=== PATIENT | male | born 1935 | race Caucasian/White ===

== ENCOUNTER 2017-03-03 09:21 | Outpatient (CLI) | payer MEDICARE, OTHER ==
[~2017-03-03] VITALS: Ht 180.3 cm; Wt 106.6 kg
[~2017-03-03 09:21] MED LIST: ASPI81TA85 PO; FLOM5CAP PO; METO50TA7 PO; MULT1TAB28 PO; PRESCAP PO
[2017-03-03] MEDS ORDERED: NS 1,000 ML IV ONE (09:45)
[2017-03-03] MEDS ORDERED: PROPOFOL 200 MG/20 ML VIAL As Ordered ONE (10:32)
[2017-03-03] MEDS ORDERED: LIDOCAINE 2% INJ 100 MG/5 ML SDV (FOR ANES.) As Ordered ONE (10:32)
--- NOTE | 2017-03-03 11:07 | ROOR ---
Patient Name: Nahun Giordano Procedure Date: 03/03/2017 10:28 AM Date of : 1935 Age: 81 Room: [facility] Gender: Male Note Status: Finalized Procedure: Total Colonoscopy to Cecum + Cold Snare Polypectomy + Hemoclips Indications: High risk colon cancer surveillance: Personal history of colonic polyps, Last colonoscopy: 2012 Providers: Vickey Muse MD Referring MD: Connie Joseph NP Requesting Provider: Medicines: Monitored Anesthesia Care Complications: No immediate complications. Procedure: Pre-Anesthesia Assessment: - The heart rate, respiratory rate, oxygen saturations, blood pressure, adequacy of pulmonary ventilation, and response to care were monitored throughout the procedure. The Colonoscope was introduced through the anus and advanced to the cecum, identified by appendiceal orifice and ileocecal valve. The colonoscopy was performed without difficulty. The patient tolerated the procedure well. The quality of the bowel preparation was excellent. Findings: The perianal and digital rectal examinations were normal. Non-bleeding internal hemorrhoids were found during retroflexion. The hemorrhoids were small and Grade I (internal hemorrhoids that do not prolapse). Multiple small and large-mouthed diverticula were found in the recto-sigmoid colon, sigmoid colon and descending colon. Multiple sessile polyps were found in the transverse colon. The polyps were medium in size. These polyps were removed with a cold snare. Resection and retrieval were complete. A medium polyp was found in the ascending colon. The polyp was sessile. The polyp was removed with a cold snare. Resection and retrieval were complete. To prevent bleeding after the polypectomy, two hemostatic clips were successfully placed. A small polyp was found at 50 cm proximal to the anus. The polyp was sessile. The polyp was removed with a cold snare. Resection and retrieval were complete. To prevent bleeding after the polypectomy, one hemostatic clip was successfully placed (MR conditional). There was no bleeding at the end of the procedure. Impression: - Non-bleeding internal hemorrhoids. - Diverticulosis in the recto-sigmoid colon, in the sigmoid colon and in the descending colon. - Multiple medium polyps in the transverse colon, removed with a cold snare. Resected and retrieved. - One medium polyp in the ascending colon, removed with a cold snare. Resected and retrieved. Clips were placed. - One small polyp at 50 cm proximal to the anus, removed with a cold snare. Resected and retrieved. Clip (MR conditional) was placed. - The exam was otherwise normal to the cecum. Recommendation: - Patient has a contact number available for emergencies. The signs and symptoms of potential delayed complications were discussed with the patient. Return to normal activities tomorrow. Written discharge instructions were provided to the patient. - Discharge patient to home. - Continue present medications. - Await pathology results. - Telephone GI clinic for pathology results in 1 week. - Repeat colonoscopy for symptoms only. - Check Portal Online for Path Results.([email or web address]) - Return to referring physician. - The findings and recommendations were discussed with the patient's family. Vickey Muse MD Vickey Muse MD 03/03/2017 11:07:43 AM This report has been signed electronically. Number of Addenda: 0 Note Initiated On: 03/03/2017 10:28 AM Estimated Blood Loss: Estimated blood loss: none.
[2017-03-03 11:15] VITALS: BP 135/78
== END 2017-03-03 11:32 | disposition home or self-care (01) ==
LOC: M OPP 09:21
PROVIDERS: ATTEND Internal Medicine Gastroenterology
DX: Z12.11 Encounter for screening for malignant neoplasm of colon (principal); K64.0 First degree hemorrhoids; K57.30 Diverticulosis of large intestine without perforation or abscess without bleeding; D12.3 Benign neoplasm of transverse colon; D12.2 Benign neoplasm of ascending colon; D12.5 Benign neoplasm of sigmoid colon; I25.10 Atherosclerotic heart disease of native coronary artery without angina pectoris; I10 Essential (primary) hypertension; E78.5 Hyperlipidemia, unspecified; G47.30 Sleep apnea, unspecified; Z98.0 Intestinal bypass and anastomosis status; Z79.899 Other long term (current) drug therapy; Z79.82 Long term (current) use of aspirin; Z95.5 Presence of coronary angioplasty implant and graft

== ENCOUNTER → 2017-06-03 | Outpatient (REF) | payer MEDICARE, OTHER ==
[2017-06-03 15:00] LABS: IMMUNOGLOBULIN G 872 MG/DL (681-1648); IMMUNOGLOBULIN M 64.9 MG/DL (40-230); TOTAL PROTEIN 7.6 GM/DL (6.4-8.2)
[2017-06-07 13:31] LABS: ALBUMIN 4.39 GM/DL (3.29-5.55); ALBUMIN % 57.8 % (55.8-66.1); GAMMA GLOBULIN % 13.3 % (11.1-18.8)
== END ==
LOC: M LAB REF 13:45
PROVIDERS: ATTEND Nurse Practitioner Adult Health
DX: D47.2 Monoclonal gammopathy (principal)

== ENCOUNTER → 2018-02-23 | Outpatient (REF) | payer MEDICARE, OTHER ==
[2018-02-23 14:42] LABS: SLIDE REVIEW Report; SOURCE PERIPHERAL SMEAR
[2018-02-23 14:43] LABS: REASON FOR REVIEW WBC/LEUKEMIA/BLAST
[2018-02-23 15:30] LABS: IMMUNOGLOBULIN G 833 MG/DL (681-1648); IMMUNOGLOBULIN M 57.6 MG/DL (40-230)
[2018-02-25 00:06] LABS: FREE LAMBDA LIGHT CHAINS SERUM 16.7 mg/L (5.7-26.3)
== END ==
LOC: M LAB REF 13:47
DX: D47.2 Monoclonal gammopathy (principal)

== ENCOUNTER → 2018-02-23 | Outpatient (CLI) | payer MEDICARE, OTHER | LOC: M RAD 10:36 | DX: D47.2 Monoclonal gammopathy (principal) | CPT/HCPCS: 77075 ==

== ENCOUNTER → 2019-06-12 | Outpatient (REF) | payer MEDICARE ==
[~2019-06-12] MED LIST changes: +ATOR80TA59 PO; +CHON150C PO; +D31000TA PO; +DIGO0.253 PO; +DILT180C78 PO; +EQLTAB27 PO; +FLOM0.4C39 PO; -FLOM5CAP PO; +METO25TA4 PO; +XARE20TA PO
== END ==
LOC: M LAB REF 12:40
PROVIDERS: ATTEND Nurse Practitioner Adult Health
DX: I48.19 Other persistent atrial fibrillation (principal)

== ENCOUNTER → 2019-11-15 | Outpatient (REF) | payer MEDICARE, OTHER ==
[2019-11-15 16:26] LABS: LIPASE 195 U/L (73-393)
[2019-11-15 17:09] LABS: VITAMIN B12 LEVEL 641 PG/ML (247-911)
== END ==
LOC: M LAB REF 16:09
PROVIDERS: ATTEND Nurse Practitioner Adult Health
DX: R10.84 Generalized abdominal pain (principal); R20.0 Anesthesia of skin

== ENCOUNTER → 2020-01-10 | Outpatient (CLI) | payer MEDICARE, OTHER ==
[~2020-01-10] MED LIST changes: -ASPI81TA85 PO; +ASPI81TA86 PO
--- NOTE | 2020-01-10 10:07 | REP ---
Clinical: Pain. Technique: AP, lateral, swimmers views of the thoracic spine. Findings: Age-related osteopenia and moderate multilevel degenerative changes include osteophytosis, endplate sclerosis, and disc space narrowing. No acute fracture / compression injury or subluxation. Impression: Moderate multilevel degenerative changes. Electronically Signed by Sathya Moody MD 01/10/2020 09:59 A
--- NOTE | 2020-01-10 10:08 | REP ---
Clinical: Pain. Technique: AP, lateral, bilateral oblique and coned-down views of the lumbosacral spine. Findings: Alignment and lordosis maintained. Age-related osteopenia noted. Moderate/advanced multilevel degenerative changes include endplate sclerosis, osteophytosis, disc space narrowing, and facet arthropathy. Findings most pronounced at the L3-4 and L2-3 levels. No acute fracture / compression injury or subluxation. Impression: Moderate/early advanced multilevel degenerative spondylosis. Electronically Signed by Sathya Moody MD 01/10/2020 10:00 A
== END ==
LOC: M WUC 09:16
PROVIDERS: ATTEND Nurse Practitioner Adult Health
DX: M47.896 Other spondylosis, lumbar region (principal); M25.78 Osteophyte, vertebrae

== ENCOUNTER → 2020-04-16 | Outpatient (REF) | payer MEDICARE ==
[2020-04-16 17:03] LABS: LIPASE 164 U/L (73-393)
[2020-04-17 08:50] LABS: H PYLORI QUALITATIVE IgG NEGATIVE (NEGATIVE)
== END ==
LOC: M LAB REF 16:22
PROVIDERS: ATTEND Nurse Practitioner Adult Health
DX: R10.9 Unspecified abdominal pain (principal)

== ENCOUNTER → 2020-05-07 | Outpatient (REF) | payer MEDICARE ==
[~2020-05-07] MED LIST changes: +ASPI81CH33 PO
[2020-05-07 17:42] LABS: ALBUMIN 4.3 GM/DL (3.2-5.2); ALT/SGPT 34 U/L (12-78); BILIRUBIN,TOTAL 0.8 MG/DL (0.2-1.0); BLOOD UREA NITROGEN 17 MG/DL (7-18); CALCIUM LEVEL 9.9 MG/DL (8.8-10.2); CARBON DIOXIDE LEVEL 32 MEQ/L (21-32); CHLORIDE LEVEL 103 MEQ/L (98-107); CREATININE FOR GFR 0.92 MG/DL (0.70-1.30); GLOMERULAR FILTRATION RATE > 60.0 (>35); GLUCOSE, FASTING 97 MG/DL (70-100); POTASSIUM SERUM 4.6 MEQ/L (3.5-5.1); SODIUM LEVEL 138 MEQ/L (136-145); TOTAL PROTEIN 7.3 GM/DL (6.4-8.2)
[2020-05-07 17:55] LABS: BASO % 0.6 % (0.0-1.0); EOS # 0.1 10^3/uL (0.0-0.5); EOS % 1.7 % (0.0-3.0); HEMATOCRIT 44.8 % (42.0-52.0); HEMOGLOBIN 14.4 g/dl (13.5-17.5); LYMPH # 1.2 10^3/uL (1.5-5.0); LYMPH % 22.9 % (24.0-44.0); MEAN CORPUSCULAR HEMOGLOBIN 31.2 pg (27.0-33.0); MEAN CORPUSCULAR HGB CONC 32.1 g/dl (32.0-36.5); MONO # 0.5 10^3/uL (0.0-0.8); NEUTROPHILS # 3.5 10^3/uL (1.5-8.5); NEUTROPHILS % 64.2 % (36.0-66.0); PLATELET COUNT, AUTOMATED 170 10^3/uL (150-450); RED BLOOD COUNT 4.62 10^6/uL (4.30-6.10); WHITE BLOOD COUNT 5.4 10^3/uL (4.0-10.0)
[2020-05-09 16:11] LABS: Lyme Disease IgG/IgM Antibodie <0.91 ISR (0.00-0.90); Lyme Disease IgM Ab Quantitati <0.80 index (0.00-0.79)
== END ==
LOC: M LABDRWAD 16:22
PROVIDERS: ATTEND Physician Assistant
DX: M54.2 Cervicalgia (principal)

== ENCOUNTER → 2020-05-15 | Outpatient (CLI) | payer MEDICARE | LOC: M LABSMTC 13:55 | PROVIDERS: ATTEND Anesthesiology | DX: Z01.812 Encounter for preprocedural laboratory examination (principal); Z20.828 Contact with and (suspected) exposure to other viral communicable diseases ==

== ENCOUNTER 2020-05-20 10:38 | Day surgery (SDC) | payer MEDICARE ==
[~2020-05-20] VITALS: Ht 180.3 cm; Wt 91.6 kg
[~2020-05-20 10:38] MED LIST changes: +NS 1,000 ML IV ONE
[2020-05-20] MEDS ORDERED: LIDOCAINE 2% 100MG/5ML SDV (FOR ANES.) As Ordered ONE ×2 (11:57→12:18)
[2020-05-20] MEDS ORDERED: ePHEDrine SULFATE 25 MG/5 ML(5MG/ML) SYRINGE As Ordered ONE (11:57)
[2020-05-20] MEDS ORDERED: propofoL 200 MG/20 ML VIAL As Ordered ONE (11:57)
--- NOTE | 2020-05-20 12:21 | ROOR ---
Patient Name: Nahun Giordano Procedure Date: 05/20/2020 11:47 AM Date of : 1935 Age: 84 Room: [facility] Gender: Male Note Status: Finalized Procedure: Total Colonoscopy to Cecum + Cold Snare Polypectomy + Hemoclips Indications: High risk colon cancer surveillance: Personal history of colonic polyps, Last colonoscopy: 2016 Providers: Vickey Muse MD Referring MD: Connie Joseph NP Requesting Provider: Medicines: Monitored Anesthesia Care Complications: No immediate complications. Procedure: Pre-Anesthesia Assessment: - The heart rate, respiratory rate, oxygen saturations, blood pressure, adequacy of pulmonary ventilation, and response to care were monitored throughout the procedure. The Colonoscope was introduced through the anus and advanced to the cecum, identified by appendiceal orifice and ileocecal valve. The colonoscopy was performed without difficulty. The patient tolerated the procedure well. The quality of the bowel preparation was excellent. Findings: The perianal and digital rectal examinations were normal. Non-bleeding internal hemorrhoids were found during retroflexion. The hemorrhoids were small and Grade I (internal hemorrhoids that do not prolapse). Multiple small and large-mouthed diverticula were found in the recto-sigmoid colon, sigmoid colon and descending colon. A small polyp was found at 50 cm proximal to the anus. The polyp was sessile. The polyp was removed with a cold biopsy forceps. Resection and retrieval were complete. To prevent bleeding after the polypectomy, one hemostatic clip was successfully placed (MR conditional). There was no bleeding at the end of the procedure. Two sessile polyps were found in the hepatic flexure. The polyps were small in size. These polyps were removed with a cold snare. Resection and retrieval were complete. To prevent bleeding after the polypectomy, two hemostatic clips were successfully placed (MR conditional). There was no bleeding at the end of the procedure. The exam was otherwise without abnormality on direct and retroflexion views. Impression: - Non-bleeding internal hemorrhoids. - Diverticulosis in the recto-sigmoid colon, in the sigmoid colon and in the descending colon. - One small polyp at 50 cm proximal to the anus, removed with a cold biopsy forceps. Resected and retrieved. Clip (MR conditional) was placed. - Two small polyps at the hepatic flexure, removed with a cold snare. Resected and retrieved. Clips (MR conditional) were placed. - The examination was otherwise normal on direct and retroflexion views. - The exam was otherwise normal to the cecum. Recommendation: - Patient has a contact number available for emergencies. The signs and symptoms of potential delayed complications were discussed with the patient. Return to normal activities tomorrow. Written discharge instructions were provided to the patient. - High fiber diet. - Discharge patient to home. - Resume Xarelto (rivaroxaban) at prior dose tomorrow. - Continue present medications. - Await pathology results. - Telephone GI clinic for pathology results in 1 week. - Repeat colonoscopy is not recommended due to current age (66 years or older) for surveillance. - Return to referring physician. - The findings and recommendations were discussed with the patient. Procedure Code(s): --- Professional --- 05708, Colonoscopy, flexible; with removal of tumor(s), polyp(s), or other lesion(s) by snare technique 41158, 59, Colonoscopy, flexible; with biopsy, single or multiple Diagnosis Code(s): --- Professional --- K63.5, Polyp of colon Z86.010, Personal history of colonic polyps K64.0, First degree hemorrhoids K57.30, Diverticulosis of large intestine without perforation or abscess without bleeding CPT copyright 2019 [employer]. All rights reserved. The codes documented in this report are preliminary and upon design verification engineer review may be revised to meet current compliance requirements. Vickey Muse MD Vickey Muse MD 05/20/2020 12:20:55 PM Electronically signed by Vickey Muse MD Number of Addenda: 0 Note Initiated On: 05/20/2020 11:47 AM Estimated Blood Loss: Estimated blood loss: none.
[2020-05-20 12:43] VITALS: BP 187/108
== END 2020-05-20 12:47 | disposition home or self-care (01) ==
LOC: M OPP 10:38
PROVIDERS: ATTEND Internal Medicine Gastroenterology
DX: Z12.11 Encounter for screening for malignant neoplasm of colon (principal); Z86.010 Personal history of colon polyps; D12.6 Benign neoplasm of colon, unspecified; K57.30 Diverticulosis of large intestine without perforation or abscess without bleeding; K64.0 First degree hemorrhoids; I10 Essential (primary) hypertension; E11.9 Type 2 diabetes mellitus without complications; Z79.82 Long term (current) use of aspirin; Z79.84 Long term (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 oral hypoglycemic drugs; Z79.899 Other long term (current) drug therapy

== ENCOUNTER → 2020-12-31 | Outpatient (REF) | payer MEDICARE ==
[~2020-12-31] MED LIST changes: +ACET650T61 PO; +ATOR40TA75 PO; +CIDA500T2 PO; +D 101000 PO; +D31000TA2 PO; +FAMO40TA3 PO; +FURO40TA2 PO; +METF500T13 PO; +METO1TAB7 PO; -NS 1,000 ML IV ONE; +POTA99TA14 PO
[2020-12-31 17:36] LABS: DIGOXIN LEVEL 1.2 NG/ML (0.5-2.0)
[2021-01-02 19:08] LABS: Lyme Disease IgG/IgM Antibodie <0.91 ISR (0.00-0.90); Lyme Disease IgM Ab Quantitati <0.80 index (0.00-0.79)
== END ==
LOC: M LAB REF 16:31
PROVIDERS: ATTEND Nurse Practitioner Adult Health
DX: R63.4 Abnormal weight loss (principal); R10.9 Unspecified abdominal pain; S30.861A Insect bite (nonvenomous) of abdominal wall, initial encounter

== ENCOUNTER 2021-02-13 11:05 | Emergency (ER) | payer MEDICARE ==
[~2021-02-13] VITALS: Ht 180.3 cm; Wt 86.4 kg
[~2021-02-13 11:05] MED LIST changes: -ACET650T61 PO; -ATOR40TA75 PO; -CIDA500T2 PO; -D 101000 PO; -D31000TA2 PO; -FAMO40TA3 PO; -FURO40TA2 PO; -METF500T13 PO; -METO1TAB7 PO; -POTA99TA14 PO
[2021-02-13 11:45] VITALS: BP 136/62
--- NOTE | 2021-02-13 11:54 | REP ---
INDICATION: FALL HEAD INJURY COMPARISON: 03/15/2014 TECHNIQUE: Axial noncontrast images from the skull base to the thoracic inlet with coronal reformations. This CT examination was performed using the following dose reduction techniques: Automated exposure control, adjustment of mA and/or kv according to the patient's size, and use of iterative reconstruction technique. FINDINGS: Atrophy with periventricular leukomalacia and microvascular ischemic changes are appreciated. The ventricles and sulci are symmetric. Ureña-white differentiation is maintained. There is no evidence for acute intracranial hemorrhage, mass/mass effect, pathology or infarction. No extra-axial fluid collection. Calvarium is intact. Paranasal sinuses and mastoid air cells are clear. IMPRESSION: Atrophy and microvascular ischemic changes. No acute intracranial hemorrhage, infarction, or mass/mass effect. <Electronically signed by Sathya Moody > 02/13/21 [id number]
--- NOTE | 2021-02-13 11:57 | REP ---
INDICATION: FALL HEAD INJURY COMPARISON: None. TECHNIQUE: Axial noncontrast images from the skull base to the thoracic inlet with coronal and sagittal re-formations This CT examination was performed using the following dose reduction techniques: Automated exposure control, adjustment of mA and/or kv according to the patient's size, and use of iterative reconstruction technique. FINDINGS: Evaluation is limited by motion artifact. Alignment is relatively well maintained and no obvious acute fracture/compression injury or subluxation is appreciated. Advanced multilevel degenerative changes are noted including partial chronic fusion of the right lateral masses at C5-6. Spinal canal appears patent. Posterior elements and spinous processes without obvious acute injury. Paravertebral soft tissues are grossly normal. IMPRESSION: Advanced multilevel degenerative changes. No obvious acute fracture/compression injury or subluxation. <Electronically signed by Sathya Moody > 02/13/21 [id number]
[2021-02-13] MEDS ORDERED: METF500T13 PO (21:37)
[2021-02-13] MEDS ORDERED: FURO40TA2 PO (21:37)
[2021-02-13] MEDS ORDERED: FAMO40TA3 PO (21:37)
[2021-02-14] MEDS ORDERED: ATOR40TA75 PO (09:15)
[2021-02-14] MEDS ORDERED: XARE20TA PO (09:15)
[2021-02-14] MEDS ORDERED: POTA99TA14 PO (09:15)
[2021-02-14] MEDS ORDERED: D31000TA2 PO (09:15)
[2021-02-14] MEDS ORDERED: METO1TAB7 PO (09:15)
== END 2021-02-13 13:19 | disposition home or self-care (01) ==
LOC: EDBD 11:05 → M ED 11:05
DX: S00.03XA Contusion of scalp, initial encounter (principal); S50.01XA Contusion of right elbow, initial encounter; W01.0XXA Fall on same level from slipping, tripping and stumbling without subsequent striking against object, initial encounter; Y92.71 Barn as the place of occurrence of the external cause; I10 Essential (primary) hypertension; E78.5 Hyperlipidemia, unspecified; I48.91 Unspecified atrial fibrillation; G47.33 Obstructive sleep apnea (adult) (pediatric); Z95.1 Presence of aortocoronary bypass graft; Z79.899 Other long term (current) drug therapy; Z79.82 Long term (current) use of aspirin; Z79.84 Long term (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 oral hypoglycemic drugs; R29.6 Repeated falls; D47.2 Monoclonal gammopathy; R63.4 Abnormal weight loss; R18.8 Other ascites; R07.0 Pain in throat; Z79.01 Long term (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 anticoagulants

== ENCOUNTER 2021-02-13 21:21 | Observation (INO) | payer MEDICARE ==
[~2021-02-13] VITALS: Ht 180.3 cm; Wt 90.5 kg
[2021-02-13] MEDS ORDERED: FAMO40TA3 PO (21:37)
[2021-02-13] MEDS ORDERED: FURO40TA2 PO (21:37)
[2021-02-13] MEDS ORDERED: METF500T13 PO (21:37)
--- NOTE | 2021-02-13 23:44 | REPVR ---
PROCEDURE INFORMATION: Exam: XR Chest Exam date and time: 02/13/2021 11:04 PM Age: 85 years old Clinical indication: Other: Declining health; Additional info: Syncope/near-syncope TECHNIQUE: Imaging protocol: XR of the chest. Views: 1 view. COMPARISON: CT Spine,cervical w/o contrast 02/13/2021 11:33 AM FINDINGS: Tubes, catheters and devices: Sternal wires. Lungs: Unremarkable. No consolidation. Pleural spaces: Unremarkable. No pleural effusion. No pneumothorax. Heart/Mediastinum: Unremarkable. No cardiomegaly. Diaphragm: Elevated left hemidiaphragm. Bones/joints: Unremarkable. IMPRESSION: No acute abnormality. Electronically signed by: Ziggy Qiu On 02/13/2021 23:44:03 PM
[2021-02-14 00:12] LABS: BASO % 0.5 % (0.0-1.0); EOS % 0.2 % (0.0-3.0); HEMOGLOBIN 11.1 g/dl (13.5-17.5); LYMPH # 0.8 10^3/uL (1.5-5.0); LYMPH % 11.4 % (24.0-44.0); MEAN CORPUSCULAR HEMOGLOBIN 31.6 pg (27.0-33.0); MEAN CORPUSCULAR HGB CONC 33.6 g/dl (32.0-36.5); NEUTROPHILS # 4.7 10^3/uL (1.5-8.5); NEUTROPHILS % 71.8 % (36.0-66.0); PLATELET COUNT, AUTOMATED 135 10^3/uL (150-450); RED BLOOD COUNT 3.51 10^6/uL (4.30-6.10); WHITE BLOOD COUNT 6.6 10^3/uL (4.0-10.0)
[2021-02-14 00:16] LABS: HEMOGLOBIN A1c 5.7 %
[2021-02-14 00:22] LABS: INR 2.24; PROTHROMBIN TIME 25.2 SECONDS (12.7-14.5)
[2021-02-14 00:23] LABS: PARTIAL THROMBOPLASTIN TIME 55.6 SECONDS (25.9-37.0)
[2021-02-14 00:33] LABS: BLOOD UREA NITROGEN 15 MG/DL (7-18); CALCIUM LEVEL 8.2 MG/DL (8.8-10.2); CARBON DIOXIDE LEVEL 25 MEQ/L (21-32); CHLORIDE LEVEL 102 MEQ/L (98-107); CPK CREATINE PHOSPHOKINASE 192 U/L (39-308); GLOMERULAR FILTRATION RATE > 60.0 (>35); GLUCOSE, FASTING 122 MG/DL (70-100); POTASSIUM SERUM 4.1 MEQ/L (3.5-5.1); SODIUM LEVEL 135 MEQ/L (136-145)
[2021-02-14 00:34] LABS: ACETONE/KETONE 2.52 MG/DL (<2.81); CK-MB VALUE MASS 1.1 NG/ML (<3.6); ETHYL ALCOHOL (ETHANOL) < 0.003 % (0.000-0.010); FREE T4 1.06 NG/DL (0.76-1.46); MB/CK RELATIVE INDEX 0.57 (< OR =4); TROPONIN I 0.02 NG/ML (< 0.10)
[2021-02-14 00:51] LABS: OSMOLALITY SERUM 271 MOSM/KG (280-301)
[2021-02-14] MEDS ORDERED: NS 1,000 ML IV ONE (01:00)
[2021-02-14 01:29] LABS: DIGOXIN LEVEL 1.2 NG/ML (0.5-2.0)
--- NOTE | 2021-02-14 08:12 | REPVR ---
PROCEDURE INFORMATION: Exam: CT Head Without Contrast Exam date and time: 02/14/2021 7:41 AM Age: 85 years old Clinical indication: Injury or trauma; Fall; Blunt trauma (contusions or hematomas) TECHNIQUE: Imaging protocol: Computed tomography of the head without contrast. Radiation optimization: All CT scans at this facility use at least one of these dose optimization techniques: automated exposure control; mA and/or kV adjustment per patient size (includes targeted exams where dose is matched to clinical indication); or iterative reconstruction. COMPARISON: CT Head without contrast 02/13/2021 11:33 AM FINDINGS: Brain: There is no acute intracranial hemorrhage or mass effect. Moderate diffuse volume loss is within the range of normal for patient age. There are small vessel ischemic changes within the periventricular and subcortical white matter, but the normal castillo-white matter delineation is maintained. Cerebral ventricles: Prominence of the ventricular system is commensurate with volume loss. Paranasal sinuses: Visualized sinuses are unremarkable. No fluid levels. Mastoid air cells: Visualized mastoid air cells are well aerated. Bones/joints: Unremarkable. No acute fracture. Soft tissues: Unremarkable. IMPRESSION: No acute hemorrhage or calvarial fracture. Electronically signed by: Harriet Enriquez On 02/14/2021 08:12:36 AM
[2021-02-14] MEDS ORDERED: METO1TAB7 PO (09:15)
[2021-02-14] MEDS ORDERED: POTA99TA14 PO (09:15)
[2021-02-14] MEDS ORDERED: ATOR40TA75 PO (09:15)
[2021-02-14] MEDS ORDERED: HOME MED LIST COMPLETE! XX SCH (09:15)
[2021-02-14] MEDS ORDERED: D31000TA2 PO (09:15)
[2021-02-14] MEDS ORDERED: XARE20TA PO (09:15)
[2021-02-14 09:21] LABS: RSV AMPLIFICATION NEGATIVE (NEGATIVE)
[2021-02-14] MEDS ORDERED: ACETAMINOPHEN TAB 650MG DOSE (2X325MG) PO PRN (09:55)
--- NOTE | 2021-02-14 10:28 | HPEPDOC ---
General Date of Admission Feb 13, 2021 at 21:22 Date of Service: Feb 14, 2021 Chief Complaint The patient is a 85-year-old male admitted with a reason for visit of Fall,Orthostasis. Source: Patient, Family History of Present Illness Patient is 85 years old male with past medical history of atrial fibrillation, hyperlipidemia, MGUS presented to hospital with history of mechanical fall. Patient is extremely poor historian. According to his family he developed mechanical fall yesterday after syncope. He worked in his garden for a few days and did not drink enough fluid. According to family patient lost around 40 pounds for past year due to esophageal pain after eating the food. In ER orthostatic vital signs was positive, no leukocytosis, HbA1c 5.7. CT head unrem arkable, CT chest no any acute pulmonary infiltrates. Home Medications Scheduled Aspirin (Aspirin) 81 Mg Tab.chew, 81 MG PO DAILY, (Reported) Atorvastatin Calcium (Atorvastatin Calcium) 40 Mg Tablet, 40 MG PO QHS, (Reported) Cholecalciferol (Vitamin D3) (Vitamin D3) 1,000 Unit Tablet, 1,000 UNITS PO BID, (Reported) Digoxin (Digoxin) 250 Mcg Tablet, 250 MCG PO DAILY, (Reported) Diltiazem Hcl (Diltiazem 24Hr ER) 180 Mg Cap.er.24h, 180 MG PO DAILY, (Reported) Famotidine (Famotidine) 40 Mg Tablet, 40 MG PO DAILY, (Reported) Furosemide (Furosemide) 40 Mg Tablet, 20 MG PO DAILY, (Reported) Metformin HCl (Metformin HCl) 500 Mg Tablet, 500 MG PO QPM, (Reported) Metoprolol Succinate (Metoprolol Succinate) 50 Mg Tab.er.24h, 50 MG PO DAILY, (Reported) Multivitamin with Minerals (Men's One Daily) 1 Each Tablet, 1 TAB PO DAILY, (Reported) Potassium Gluconate (Potassium) 99 Mg Tablet, 595 MG PO BID, (Reported) Rivaroxaban (Xarelto) 20 Mg Tablet, 20 MG PO DAILY, (Reported) Vit A/Vit C/Vit E/Zinc/Copper (Preservision Areds Softgel) 1 Cap Cap, 1 CAP PO BID, (Reported) Allergies Coded Allergies: No Known Allergies (Verified , 03/26/17) Past Medical History Medical History atrial fibrillation, hyperlipidemia, MGUS Family History I personally reviewed family history and found not pertinent Social History * Smoker: Denies Alcohol: Denies Drugs: denies A-FIB/CHADSVASC A-FIB History Current/History of A-Fib/PAF?: Yes Current PO Anticoag Therapy: Yes Review of Systems Constitutional: Denies: Chills, Fever Eyes: Denies: Pain ENT: Denies: Head Aches Skin: Denies: Rash Pulmonary: Denies: Dyspnea Cardiovascular: Denies: Chest Pain Gastrointestinal: Denies: Nausea, Vomiting Genitourinary: Denies: Dysuria Hematologic: Denies: Bruising Endocrine: Denies: Polydipsia Musculoskeletal: Denies: Neck Pain Neurological: Denies: Weakness Psych: Reports: Mood Normal Physical Examination General Exam: Positive: Alert, Cooperative Eye Exam: Positive: PERRLA, Other Eye Symptoms (Right-sided facial bruises) ENT Exam: Positive: Mucous membr. moist/pink Neck Exam: Positive: Supple; Negative: JVD Chest Exam: Positive: Clear to auscultation Heart Exam: Positive: Rate Normal, Irregular Rhythm Telemetry: Positive: Atrial fibrillation Abdomen Exam: Positive: Normal bowel sounds Extremity Exam: Negative: Clubbing Skin Exam: Positive: Nl turgor and temperature Neuro Exam: Positive: Strength at 5/5 X4 ext Psych Exam: Positive: Mental status NL Vital Signs Vital Signs Date Time Temp Pulse Resp B/P (MAP) Pulse Ox O2 Delivery O2 Flow Rate FiO2 02/14/21 07:48 76 17 112/53 (72) 95 Room Air 02/13/21 21:24 98.6 Laboratory Data Labs 24H Laboratory Tests 2 02/13/21 23:33: Immature Granulocyte % (Auto) 1.1, Neutrophils (%) (Auto) 71.8H, Lymphocytes (%) (Auto) 11.4L, Monocytes (%) (Auto) 15.0H, Eosinophils (%) (Auto) 0.2, Basophils (%) (Auto) 0.5, Neutrophils # (Auto) 4.7, Lymphocytes # (Auto) 0.8L, Monocytes # (Auto) 1.0H, Eosinophils # (Auto) 0.0, Basophils # (Auto) 0.0, Nucleated Red Blood Cells % (auto) 0.0, Prothrombin Time 25.2H, Prothromb Time International Ratio 2.24, Activated Partial Thromboplast Time 55.6H, Urine Color YELLOW, Urine Appearance HAZY, Urine pH 5.0, Urine Specific Trezevant 1.017, Urine Protein NEGATIVE, Urine Glucose (UA) NEGATIVE, Urine Ketones TRACEH, Urine Blood NEGATIVE, Urine Nitrite NEGATIVE, Urine Bilirubin NEGATIVE, Urine Urobilinogen 4.0H, Urine Leukocyte Esterase NEGATIVE, Urine WBC (Auto) 1, Urine RBC (Auto) 1, Urine Hyaline Casts (Auto) 0, Urine Bacteria (Auto) NEGATIVE, Urine Squamous Ep ithelial Cells 0, Urine Mucus (Auto) MODERATE, Urine Sperm (Auto) , Anion Gap 8, Glomerular Filtration Rate > 60.0, Estimated Mean Plasma Glucose 117H, Hemoglobin A1c 5.7, Osmolality 271L, Lactic Acid Level 1.2, Calcium Level 8.2L, Total Creatine Kinase 192, Creatine Kinase MB 1.1, Creatine Kinase MB Relative Index 0.57, Troponin I 0.02, Thyroid Stimulating Hormone (TSH) 2.530, Free Thyroxine 1.06, Digoxin Level 1.2, Ethyl Alcohol Level < 0.003, B- Hydroxybutyrate 2.52 02/13/21 23:44: Bedside Glucose (Misc Panel) 123H 02/14/21 08:10: Coronavirus (COVID-19)(PCR) NEGATIVE, Influenza Type A (RT-PCR) NEGATIVE, Influenza Type B (RT-PCR) NEGATIVE, Respiratory Syncytial Virus (PCR) NEGATIVE CBC/BMP Laboratory Tests 02/13/21 23:33 Assessment/Plan Patient is 85 years old male with past medical history of atrial fibrillation, hyperlipidemia, MGUS presented to hospital with history of mechanical fall. Patient is extremely poor historian. According to his family he developed mechanical fall yesterday after syncope. He worked in his garden for a few days and did not drink enough fluid. According to family patient lost around 40 pounds for past year due to esophageal pain after eating the food. In ER orthostatic vital signs was positive, no leukocytosis, HbA1c 5.7. CT head unremarkable, CT chest no any acute pulmonary infiltrates. Problems (1) Orthostasis Status: Acute Problem Text: Most likely secondary to dehydration and medication side effect patient was on the beta-blockers and diltiazem I stopped diltiazem, continue metoprolol Heart rate under control IV fluid (2) Fall Status: Acute Problem Text: Multifactorial most likely secondary to dehydration and medication side effect (3) IgG monoclonal gammopathy Status: Chronic Problem Text: Follow-up with oncologist in the outpatient settings (4) Syncope and collapse Status: Acute Problem Text: See above Telemetry (5) A-fib Status: Chronic Problem Text: Continue oral target anticoagulation Heart rate under control I stop diltiazem and continue metoprolol (6) Weight loss Status: Chronic Problem Text: According to family patient lost 40 pounds due to esophageal discomfort Patient will need follow-up with GI team in the outpatient settings We will proceed with CT chest/abdomen/pelvis to rule out malignancy Plan / VTE VTE Prophylaxis Ordered?: Yes STEVEN VÁZQUEZ DO Feb 14, 2021 10:28
[2021-02-14] MEDS: RIVAROXABAN 20 MG TAB (XARELTO) PO SCH (10:46)
[2021-02-14] MEDS: ASPIRIN 81 MG CHEW TABLET PO SCH (10:46)
[2021-02-14] MEDS: FAMOTIDINE 20 MG TAB PO SCH (10:46)
[2021-02-14] MEDS: VITAMIN D 1,000 INTERNATIONAL UNITS TABLET PO SCH ×2 (10:46→20:21)
[2021-02-14] MEDS: DIGOXIN 0.25 MG TAB PO SCH (10:47)
[2021-02-14] MEDS: FUROSEMIDE 20 MG TAB PO SCH (10:47)
[2021-02-14] MEDS: METOPROLOL SUCC (TopROL XL) 50MG **XL** TAB PO SCH (10:49)
[2021-02-14] MEDS: NS 1,000 ML IV SCH ×2 (10:50→22:44)
--- NOTE | 2021-02-14 11:11 | REP ---
INDICATION: possible malignancy COMPARISON: Abdominopelvic CT dated 04/24/2020 TECHNIQUE: Axial noncontrast images from the thoracic inlet to the upper abdomen with coronal and sagittal reformations. This CT examination was performed using the following dose reduction techniques: Automated exposure control, adjustment of mA and/or kv according to the patient's size, and use of iterative reconstruction technique. FINDINGS: Relatively mild bibasilar atelectasis and small pleural reactions (left greater than right). Lung valdez are otherwise well aerated and essentially clear. 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 Atherosclerotic changes to the thoracic aorta and coronary arteries noted. Cardiomegaly identified without pericardial effusion. Evidence for prior aortic valve repair noted. No obvious significant adenopathy. Musculoskeletal structures without acute osseous abnormality. Limited upper abdomen demonstrates moderate to significant left upper quadrant ascites surrounding the spleen as well as gastric wall thickening and small amount of perihepatic ascites. IMPRESSION: 1. Mild bibasilar atelectasis and small pleural reactions. 2. Findings may be secondary to and reactive to upper abdominal findings including significant left upper quadrant perisplenic ascites and gastric wall thickening. Further investigation may be warranted. <Electronically signed by Sathya Moody > 02/14/21 [id number]
--- NOTE | 2021-02-14 11:31 | REP ---
INDICATION: possible malignancy COMPARISON: 04/24/2020 TECHNIQUE: Axial noncontrast images from the lung bases to the pubic symphysis with coronal and sagittal reformations. This CT examination was performed using the following dose reduction techniques: Automated exposure control, adjustment of mA and/or kv according to the patient's size, and use of iterative reconstruction technique. FINDINGS: There is a moderate amount of ascites primarily noted in the left upper quadrant and surrounding a poorly definable spleen and essentially inseparable from the gastric fundus which demonstrates a moderate amount of gastric wall thickening as well as a small amount of perihepatic ascites and generalized fat stranding through the mesentery. These findings are nonspecific and evaluation is significantly limited by the lack of both oral and intravenous contrast enhancement. Pancreas, bilateral adrenal glands, and kidneys are relatively stable including chronic perinephric stranding and renal hypodensities suggesting simple and complex cysts. The enteric system is without obstruction and there is no free air to suggest perforation. Scattered colonic diverticula noted along with chronic rim enhancing ovoid fat structures in the left hemipelvis suggesting chronic epiploic appendagitis and sequelae of possible old fatty infarctions. Pelvis demonstrates normal bladder and age-appropriate prostate/seminal vesicles. No obvious adenopathy. Atherosclerotic changes to the aorta and vasculature noted without aneurysm. Musculoskeletal structures are intact and without acute osseous abnormality. IMPRESSION: 1. Moderate amount of ascites primarily surrounding the spleen in the left upper quadrant along with scattered mesenteric fat stranding and findings as described above. Findings require further investigation and evaluation is currently limited by the lack of contrast enhancement. Differential diagnosis may include splenic infarction, primary splenic pathology as well as adjacent gastric pathology and sequelae of hepatocellular disease. 2. Chronic appearing changes to the kidneys including hypodensities may warrant ultrasound evaluation for confirmation. 3. Chronic appearing changes to the large bowel. <Electronically signed by Sathya Moody > 02/14/21 1122
[2021-02-14 12:00] VITALS: BP_SYST 129; BP_SYST 131; BP_SYST 135; BP_DIAS 56; BP_DIAS 57; BP_DIAS 58
[2021-02-14 14:00] VITALS: BP 114/60
[2021-02-14] MEDS ORDERED: GLUCAGON INJ 1MG VIAL SC PRN (14:30)
[2021-02-14] MEDS ORDERED: GLUCOSE 4GM CHEW TABLET PO PRN (14:30)
[2021-02-14] MEDS ORDERED: DEXTROSE 50% 50 ML SYRINGE IV PRN (14:30)
[2021-02-14] MEDS: GASTROGRAFIN SOLUTION 30ML PO SCH ×2 (16:34→16:35)
[2021-02-14] MEDS ORDERED: ISOVUE-370 76% 100ML VIAL As Ordered ONE (16:43)
[2021-02-14] MEDS: HumaLOG INSULIN (NovoLOG) PER UNIT SC SCH (17:30)
[2021-02-14] MEDS ORDERED: ATORVASTATIN 20 MG TAB PO SCH (21:00)
[2021-02-14] MEDS ORDERED: HumaLOG INSULIN (NovoLOG) PER UNIT SC SCH (21:00)
--- NOTE | 2021-02-14 21:19 | ECGEPIP ---
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
--- NOTE | 2021-02-14 21:43 | REP ---
INDICATION: splenic infarct, gastric malignancy. COMPARISON: None TECHNIQUE: Axial contrast-enhanced images from the lung bases to the pubic symphysis using oral and 100 cc Isovue 370 intravenous contrast material. Coronal and sagittal reformations obtained. This CT examination was performed using the following dose reduction techniques: Automated exposure control, adjustment of mA and/or kv according to the patient's size, and the use of iterative reconstruction technique. FINDINGS: Moderate amount of ascites is again appreciated but has shifted in location now primarily noted in a right upper quadrant/perihepatic distribution. The spleen appears moderately enlarged but otherwise homogeneous in parenchymal enhancement without evidence for infarction or obvious focal abnormality. The liver demonstrates heterogeneous echotexture but without definable mass lesion appreciated. Kidneys demonstrate stable chronic perinephric stranding along with 3.5 cm left upper pole renal cyst. Pancreas is grossly unremarkable. Bilateral adrenal glands appear normal. Evidence for prior cholecystectomy noted. The enteric system is without obstruction or definite acute inflammatory process. Area of mucosal thickening of the mid sigmoid colon is nonspecific. Scattered colonic diverticula are also identified without evidence for acute diverticulitis. 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 Small bowel is unremarkable. Stomach is under distended but gastric mucosal thickening at the fundus cannot be excluded and may warrant endoscopy evaluation. Pelvis demonstrates normal bladder and age-appropriate prostate/seminal vesicles. No free air. No obvious intraperitoneal or retroperitoneal adenopathy. Atherosclerotic changes to the aorta and vasculature noted without aneurysm or dissection. Musculoskeletal structures demonstrate degenerative changes without acute osseous abnormality. [place] identified in the right groin suggest prior herniorrhaphy. IMPRESSION: 1. Moderate amount of ascites has shifted to a predominantly right upper quadrant distribution on current examination. 2. Spleen is mildly enlarged but without evidence for infarction or focal abnormality. 3. Diffuse in predominately chronic changes as noted above. An acute primary focus of pathology cannot definitively be excluded. 4. Gastric thickening to the fundus cannot be excluded and may warrant endoscopy. 5. Further nonacute findings as described above. <Electronically signed by Sathya Moody > 02/14/21 [id number]
[2021-02-14 22:00] VITALS: BP_SYST 131; BP_SYST 143; BP_DIAS 70; BP_DIAS 72
[2021-02-15 06:52] LABS: HEMATOCRIT 28.3 % (42.0-52.0); HEMOGLOBIN 9.6 g/dl (13.5-17.5); MEAN CORPUSCULAR HEMOGLOBIN 31.6 pg (27.0-33.0); MEAN CORPUSCULAR HGB CONC 33.9 g/dl (32.0-36.5); MEAN CORPUSCULAR VOLUME 93.1 fl (80.0-96.0); PLATELET COUNT, AUTOMATED 118 10^3/uL (150-450); RED BLOOD COUNT 3.04 10^6/uL (4.30-6.10); WHITE BLOOD COUNT 4.7 10^3/uL (4.0-10.0)
[2021-02-15 07:01] VITALS: BP_SYST 148; BP_SYST 161; BP_DIAS 72; BP_DIAS 80
[2021-02-15 07:21] LABS: ALT/SGPT 17 U/L (12-78); BILIRUBIN,TOTAL 1.1 MG/DL (0.2-1.0); BLOOD UREA NITROGEN 10 MG/DL (7-18); CALCIUM LEVEL 8.6 MG/DL (8.8-10.2); CARBON DIOXIDE LEVEL 26 MEQ/L (21-32); CHLORIDE LEVEL 108 MEQ/L (98-107); CREATININE FOR GFR 0.64 MG/DL (0.70-1.30); GLOMERULAR FILTRATION RATE > 60.0 (>35); GLUCOSE, FASTING 104 MG/DL (70-100); MAGNESIUM LEVEL 2.1 MG/DL (1.8-2.4); SODIUM LEVEL 139 MEQ/L (136-145); TOTAL PROTEIN 5.8 GM/DL (6.4-8.2)
[2021-02-15] MEDS: HumaLOG INSULIN (NovoLOG) PER UNIT SC SCH ×2 (07:30→12:00)
[2021-02-15] MEDS ORDERED: ENOXAPARIN 40MG/0.4ML SYRINGE (J1650 PER 10MG) SC SCH (09:00)
[2021-02-15] MEDS: FUROSEMIDE 20 MG TAB PO SCH (09:20)
[2021-02-15] MEDS: VITAMIN D 1,000 INTERNATIONAL UNITS TABLET PO SCH (09:20)
[2021-02-15] MEDS: ASPIRIN 81 MG CHEW TABLET PO SCH (09:20)
[2021-02-15] MEDS: FAMOTIDINE 20 MG TAB PO SCH (09:20)
[2021-02-15] MEDS: RIVAROXABAN 20 MG TAB (XARELTO) PO SCH (09:20)
[2021-02-15 09:21] VITALS: BP 128/66
[2021-02-15] MEDS: DIGOXIN 0.25 MG TAB PO SCH (09:21)
[2021-02-15] MEDS: METOPROLOL SUCC (TopROL XL) 50MG **XL** TAB PO SCH (09:21)
[2021-02-15] MEDS: NS 1,000 ML IV SCH ×2 (09:25→12:24)
[2021-02-15 14:00] VITALS: BP 125/66
--- NOTE | 2021-02-15 14:52 | DS.PDOC ---
Discharge Summary General Date of Admission Feb 13, 2021 at 21:22 Date of Discharge 02/15/21 Discharge Summary PROCEDURES PERFORMED DURING STAY: [None]. ADMITTING DIAGNOSES: Orthostatic hypotension Fall IgG monoclonal gammopathy Syncope and collapse A-fib Weight loss Ascites DISCHARGE DIAGNOSES: Orthostatic hypotension Fall IgG monoclonal gammopathy Syncope and collapse A-fib Weight loss Ascites COMPLICATIONS/CHIEF COMPLAINT: Fall,Orthostasis. HISTORY OF PRESENT ILLNESS: Patient is 85 years old male with past medical history of atrial fibrillation, hyperlipidemia, MGUS presented to hospital with history of mechanical fall. Patient is extremely poor historian. According to his family he developed mechanical fall yesterday after syncope. He worked in his garden for a few days and did not drink enough fluid. According to family patient lost around 40 pounds for past year due to esophageal pain after eating the food. In ER orthostatic vital signs was positive, no leukocytosis, HbA1c 5.7. CT head unremarkable, CT chest no any acute pulmonary infiltrates. HOSPITAL COURSE: During the hospital stay the following issue addressed (1) Orthostasis Most likely secondary to dehydration and medication side effect patient was on the beta-blockers and diltiazem I stopped diltiazem, continue metoprolol Heart rate under control Patient received IV fluid (2) Fall Multifactorial most likely secondary to dehydration and medication side effect (3) IgG monoclonal gammopathy Follow-up with oncologist in the outpatient settings (4) Syncope and collapse See above Telemetry (5) A-fib Continue oral target anticoagulation Heart rate under control I stop diltiazem and continue metoprolol (6) Weight loss According to family patient lost 40 pounds due to esophageal discomfort Patient will need follow-up with GI team in the outpatient settings Ascites Moderate ascites was found on CT abdomen pelvis. Patient will need diagnostic paracentesis in the outpatient settings. No interventional radiologist coverage today. Patient afebrile, does not have leukocytosis, looks nontoxic. CT abdomen pelvis negative for cirrhosis. See result below DISCHARGE MEDICATIONS: Please see below. ALLERGIES: Please see below. PHYSICAL EXAMINATION ON DISCHARGE: VITAL SIGNS: Please see below. General Exam: Positive: Alert, Cooperative Eye Exam: Positive: PERRLA, Other Eye Symptoms (Right-sided facial bruises) ENT Exam: Positive: Mucous membr. moist/pink Neck Exam: Positive: Supple; Negative: JVD Chest Exam: Positive: Clear to auscultation Heart Exam: Positive: Rate Normal, Irregular Rhythm Telemetry: Positive: Atrial fibrillation Abdomen Exam: Positive: Normal bowel sounds Extremity Exam: Negative: Clubbing Skin Exam: Positive: Nl turgor and temperature Neuro Exam: Positive: Strength at 5/5 X4 ext Psych Exam: Positive: Mental status NL LABORATORY DATA: Please see below. IMAGING: INDICATION: splenic infarct, gastric malignancy. COMPARISON: None TECHNIQUE: Axial contrast-enhanced images from the lung bases to the pubic symphysis using oral and 100 cc Isovue 370 intravenous contrast material. Coronal and sagittal reformations obtained. This CT examination was performed using the following dose reduction techniques: Automated exposure control, adjustment of mA and/or kv according to the patient's size, and the use of iterative reconstruction technique. FINDINGS: Moderate amount of ascites is again appreciated but has shifted in location now primarily noted in a right upper quadrant/perihepatic distribution. The spleen appears moderately enlarged but otherwise homogeneous in parenchymal enhancement without evidence for infarction or obvious focal abnormality. The liver demonstrates heterogeneous echotexture but without definable mass lesion appreciated. Kidneys demonstrate stable chronic perinephric stranding along with 3.5 cm left upper pole renal cyst. Pancreas is grossly unremarkable. Bilateral adrenal glands appear normal. Evidence for prior cholecystectomy noted. The enteric system is without obstruction or definite acute inflammatory process. Area of mucosal thickening of the mid sigmoid colon is nonspecific. Scattered colonic diverticula are also identified without evidence for acute diverticulitis. 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 Small bowel is unremarkable. Stomach is under distended but gastric mucosal thickening at the fundus cannot be excluded and may warrant endoscopy evaluation. Pelvis demonstrates normal bladder and age-appropriate prostate/seminal vesicles. No free air. No obvious intraperitoneal or retroperitoneal adenopathy. Atherosclerotic changes to the aorta and vasculature noted without aneurysm or dissection. Musculoskeletal structures demonstrate degenerative changes without acute osseous abnormality. [place] identified in the right groin suggest prior herniorrhaphy. IMPRESSION: 1. Moderate amount of ascites has shifted to a predominantly right upper quadrant distribution on current examination. 2. Spleen is mildly enlarged but without evidence for infarction or focal abnormality. 3. Diffuse in predominately chronic changes as noted above. An acute primary focus of pathology cannot definitively be excluded. 4. Gastric thickening to the fundus cannot be excluded and may warrant endoscopy. 5. Further nonacute findings as described above. PROGNOSIS: Fair ACTIVITY: [As tolerated]. DIET: Renal DISPOSITION: Home with home health ITEMS TO FOLLOWUP ON ON OUTPATIENT: Follow-up with PCP, GI team, oncologist DISCHARGE CONDITION: [Stable]. TIME SPENT ON DISCHARGE: 40 minutes. Vital Signs/I&Os Vital Signs Date Time Temp Pulse Resp B/P (MAP) Pulse Ox O2 Delivery O2 Flow Rate FiO2 02/15/21 09:21 80 128/66 02/15/21 06:00 98.0 18 93 Room Air I&O- Last 24 Hours up to 6 AM 02/15/21 06:00 Intake Total 2000 ml Output Total 1275 ml Balance 725 ml Laboratory Data Labs 24H Laboratory Tests 2 02/14/21 17:21: Bedside Glucose (Misc Panel) 104 02/14/21 20:17: Bedside Glucose (Misc Panel) 139H 02/15/21 06:33: Nucleated Red Blood Cells % (auto) 0.0, Anion Gap 5L, Glomerular Filtration Rate > 60.0, Calcium Level 8.6L, Magnesium Level 2.1, Total Bilirubin 1.1H, Aspartate Amino Transf (AST/SGOT) 26, Alanine Aminotransferase (ALT/SGPT) 17, Alkaline Phosphatase 72, Total Protein 5.8L, Albumin 3.0L, Albumin/Globulin Ratio 1.1 02/15/21 11:26: Bedside Glucose (Misc Panel) 107 CBC/BMP Laboratory Tests 02/15/21 06:33 FSBS Laboratory Tests Test 02/14/21 17:21 02/14/21 20:17 02/15/21 11:26 Range/Units Bedside Glucose (Misc Panel) 104 139 107 83-110 MG/DL Discharge Medications Scheduled Aspirin (Aspirin) 81 Mg Tab.chew, 81 MG PO DAILY, (Reported) Atorvastatin Calcium (Atorvastatin Calcium) 40 Mg Tablet, 40 MG PO QHS, (Reported) Cholecalciferol (Vitamin D3) (Vitamin D3) 1,000 Unit Tablet, 1,000 UNITS PO BID, (Reported) Digoxin (Digoxin) 250 Mcg Tablet, 250 MCG PO DAILY, (Reported) Famotidine (Famotidine) 40 Mg Tablet, 40 MG PO DAILY, (Reported) Metformin HCl (Metformin HCl) 500 Mg Tablet, 500 MG PO QPM, (Reported) Metoprolol Succinate (Metoprolol Succinate) 50 Mg Tab.er.24h, 50 MG PO DAILY, (Reported) Multivitamin with Minerals (Men's One Daily) 1 Each Tablet, 1 TAB PO DAILY, (Reported) Potassium Gluconate (Potassium) 99 Mg Tablet, 595 MG PO BID, (Reported) Rivaroxaban (Xarelto) 20 Mg Tablet, 20 MG PO DAILY, (Reported) Vit A/Vit C/Vit E/Zinc/Copper (Preservision Areds Softgel) 1 Cap Cap, 1 CAP PO BID, (Reported) Allergies Coded Allergies: No Known Allergies (Verified , 03/26/17) STEVEN VÁZQUEZ DO Feb 15, 2021 14:52
== END 2021-02-15 14:54 | disposition home health service (06) ==
LOC: M ED 21:21 → M ED INP 21:22 → ENRESERV 02-14 10:11 → M MSPAV 02-14 11:29
PROVIDERS: ADMIT Internal Medicine; ATTEND Internal Medicine
DX: I95.1 Orthostatic hypotension (principal); R29.6 Repeated falls; D47.2 Monoclonal gammopathy; I48.91 Unspecified atrial fibrillation; R63.4 Abnormal weight loss; R18.8 Other ascites; E78.5 Hyperlipidemia, unspecified; R07.0 Pain in throat; Z79.899 Other long term (current) drug therapy; Z79.82 Long term (current) use of aspirin; Z79.84 Long term (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 oral hypoglycemic drugs; Z79.01 Long term (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 anticoagulants
CPT/HCPCS: 36415; 70450; 71045; 71250; 74176; 74177; 80048; 80053; 80162; 81001; 82010; 82077; 82550; 82553; 83036; 83605; 83735; 83930; 84439; 84443; 84484; 85025; 85027; 85610; 85730; 87631; 92526; 92610; 93005; 93041; 94760; 97161; 97165; 97530; 99285; G0378; Q9963; Q9967

== ENCOUNTER → 2021-02-19 | Outpatient (REF) | payer MEDICARE ==
[~2021-02-19] MED LIST changes: +ACET650T61 PO; +ATOR40TA75 PO; +CIDA500T2 PO; +D 101000 PO; +D31000TA2 PO; +FAMO40TA3 PO; +FURO40TA2 PO; +METF500T13 PO; +METO1TAB7 PO; +POTA99TA14 PO
[2021-02-19 17:27] LABS: FERRITIN 253 NG/ML (26-388); IRON (FE) 39 UG/DL (65-175); PERCENT SATURATION 13.5 % (19.7-50.0); TOTAL IRON BINDING CAPACITY 288 UG/DL (250-450)
[2021-02-20 12:10] LABS: ALBUMIN 3.61 GM/DL (3.29-5.55); ALBUMIN % 51.5 % (55.8-66.1); ALPHA-1-GLOBULIN % 7.1 % (2.9-4.9); ALPHA-2-GLOBULINS 1.15 GM/DL (0.42-0.99); ALPHA-2-GLOBULINS % 16.4 % (7.1-11.8); BETA-1-GLOBULINS 0.39 GM/DL (0.28-0.60); BETA-1-GLOBULINS % 5.5 % (4.7-7.2); BETA-2-GLOBULINS 0.41 GM/DL (0.19-0.55); BETA-2-GLOBULINS % 5.9 % (3.2-6.5); GAMMA GLOBULIN % 13.6 % (11.1-18.8); GAMMA GLOBULINS 0.95 GM/DL (0.65-1.58)
[2021-02-20 12:15] LABS: IMMUNOTYPING SERUM IGG ABNORMAL (NORMAL); IMMUNOTYPING SERUM LAMBDA ABNORMAL (NORMAL)
[2021-02-21 18:08] LABS: FREE KAPPA LIGHT CHAINS SERUM 26.4 mg/L (3.3-19.4); FREE LAMBDA LIGHT CHAINS SERUM 35.4 mg/L (5.7-26.3); KAPPA/LAMBDA RATIO SERUM 0.75 (0.26-1.65)
== END ==
LOC: M LAB REF 16:03
PROVIDERS: ATTEND Internal Medicine
DX: D64.9 Anemia, unspecified (principal); D47.2 Monoclonal gammopathy

== ENCOUNTER → 2021-04-14 | Outpatient (CLI) | payer MEDICARE ==
[~2021-04-14] MED LIST changes: +PROHANCE 279.3MG/ML 15ML VIAL As Ordered ONE; +PROHANCE 279.3MG/ML 5ML VIAL As Ordered ONE
--- NOTE | 2021-04-14 10:35 | REPVR ---
PROCEDURE INFORMATION: Exam: MR Head Without and With Contrast Exam date and time: 04/14/2021 9:11 AM Age: 85 years old Clinical indication: Dizziness; Patient HX: Main reason loss of balance; Additional info: Mgus w/ maligant ascites w/loss of balance TECHNIQUE: Imaging protocol: MR of the head without and with intravenous contrast. Contrast material: PROHANCE; Contrast volume: 16 ml; Contrast route: INTRAVENOUS (IV); COMPARISON: CT Head without contrast 02/14/2021 7:53 AM FINDINGS: Brain: The ventricles and sulci are proportionally enlarged, consistent with age related volume loss / atrophy. There is mild T2 prolongation in the cerebral white matter, consistent with microvascular disease. [place] white differentiation is intact. Diffusion weighted images show no restricted diffusion or evidence of acute infarct. There is no mass effect or midline shift. There is no acute intracranial hemorrhage. There are no extra-axial fluid collections. There is no abnormal leptomeningeal or parenchymal contrast enhancement. Cerebral ventricles: Normal. No ventriculomegaly. Bones/joints: Unremarkable as visualized. Paranasal sinuses: Normal as visualized. No acute sinusitis. Mastoid air cells: No significant mastoid effusion. Orbital cavity: There have been bilateral intraocular lens replacements likely related to cataract surgery. Soft tissues: Unremarkable as visualized. Other vasculature: Flow voids in main vascular structures are visualized. IMPRESSION: 1. No evidence of acute intracranial abnormality. No evidence of acute infarction, hemorrhage, or mass. 2. Atrophy and microvascular disease. Electronically signed by: Connie Cuevas On 04/14/2021 10:35:15 AM
== END ==
LOC: M RAD 07:57
PROVIDERS: ATTEND Internal Medicine Medical Oncology
DX: R26.89 Other abnormalities of gait and mobility (principal); I67.89 Other cerebrovascular disease
CPT/HCPCS: 70553; A9576

== ENCOUNTER → 2021-04-21 | Outpatient (CLI) | payer MEDICARE ==
[~2021-04-21] MED LIST changes: -PROHANCE 279.3MG/ML 15ML VIAL As Ordered ONE; -PROHANCE 279.3MG/ML 5ML VIAL As Ordered ONE
--- NOTE | 2021-04-22 09:51 | REP ---
INDICATION: DIAGNOSING ABN FINDINGS OF THE LIVER. COMPARISON: CT scan of the chest abdomen and pelvis 02/14/2021. There are no prior PET CTs for comparison. TECHNIQUE: After the intravenous administration of 8.89 mCi of F FDG 18 triplane whole-body PET-CT was performed from the skull base to the mid FINDINGS: There is no abnormal hypermetabolic activity seen in the neck, chest, abdomen, or pelvis. Particularly, there is no abnormal hypermetabolic activity seen in the liver or in the perihepatic region. IMPRESSION: Negative PET-CT. <Electronically signed by Bon Trammell > 04/22/21 [id number]
== END ==
LOC: M PLARAD 12:42
PROVIDERS: ATTEND Internal Medicine Medical Oncology
DX: D37.6 Neoplasm of uncertain behavior of liver, gallbladder and bile ducts (principal); R18.0 Malignant ascites
CPT/HCPCS: 78815; A9552

== ENCOUNTER → 2021-04-25 | Outpatient (CLI) | payer MEDICARE | LOC: M LABSMTC 11:03 | PROVIDERS: ATTEND Anesthesiology | DX: Z01.818 Encounter for other preprocedural examination (principal); Z11.52 Encounter for screening for COVID-19 ==

== ENCOUNTER 2021-04-30 08:53 | Day surgery (SDC) | payer MEDICARE ==
[~2021-04-30] VITALS: Ht 180.3 cm; Wt 91.1 kg
[~2021-04-30 08:53] MED LIST changes: +NS 1,000 ML IV ONE
--- OUTSIDE RECORDS SUMMARY | 2021-04-30 08:56 | CCD | Continuity of Care Document ---
Author Author Nahun MUSE M.D. Organization Unknown Address [address] [place] [id number] Phone [phone] Care Team Providers Care Software Configuration Analyst Name Role Phone Connie Joseph AUTM [phone] Problems Active Problems Provider Date Abdominal pain Vickey Muse M.D. Onset: 03/11/20 Screening for malignant neoplasm of colon Vickey bedolla M.D. Onset: 05/02/2020 History of polyp of colon Clinton Rodas Onset: Essential hypertension Onset: 01/18/2013 Social History Type Date Description Comments Sex Unknown ETOH Use Denies alcohol use Tobacco Use Start: Unknown Patient has never smoked Allergies and adverse reactions Description No Known Drug Allergies Medications Active Medications SIG Qnty Indications Ordering Provide r Date Metoprolol Tartrate 50mg Tablets Unknown Multiple Vitamin Tablets Unknown D3-50 18288Zgom Capsules Unknown Potassium 99mg Tablets Unknown Xarelto 20mg Tablets Unknown Atorvastatin Calcium 80mg Tablets Unknown Digoxin 125mcg Tablets Unknown Metformin HCL 500mg Tablets Unknown Famotidine 40mg Tablets Take 1 Tablet By Mouth Once Daily Connie Joseph A.N.P. 0 Glucosamine Chondroitin 1500 Complex 1500Com Capsules 1 by mouth every night Unknown Preservision Areds Capsules Unknown Immunizations Description No Information Available Vital Signs Date Vital Result Comment 03/11/2021 1:32pm Height 71 inches 5'11" Weight 188.00 lb BP Systolic 141 mmHg BP Diastolic 77 mmHg Heart Rate 69 /min BMI (Body Mass Index) 26.2 kg/m2 Weight 85.277 kg Body Temperature 97.3 F 05/02/2020 11:10am Height 71 inches 5'11" Weight 210.00 lb BP Systolic 133 mmHg BP Diastolic 82 mmHg Heart Rate 79 /min BMI (Body Mass Index) 29.3 kg/m2 Weight 95.256 kg Body Temperature 97.2 F Results Description No Information Available Procedures Description No Information Available Medical Devices Description No Information Available Encounters Description No Information Available Assessments Date Code Description Provider 03/11/2021 R63.4 Unexplained weight loss Vickey Muse M.D. 03/11/2021 R10.9 Abdominal pain Vickey acuna M.D. Plan of Treatment Future Appointment(s):* 04/30/2021 11:45 am - Vickey Muse M.D. at Main Office 03/11/2021 - Vickey Muse M.D.* R63.4 Unexplained weight loss* Comments: * 85 yo wm who presents for a egd due to a h/o abdominal pain/weight loss of 40 lbs over 1 to 2 yrs. Pt c/o abdominal pain, + weight loss. No change in bowel habits, or rectal bleeding. No family h/o colon cancer. No h/o chest pain, or sob.Plan:1. Set up an egd.2. Informed consent given. * R10.9 Abdominal pain* Comments:* As above. Functional Status Description No Information Available Mental Status Description No Information Available Referrals Description No Information Available
--- OUTSIDE RECORDS SUMMARY | 2021-04-30 08:56 | CCD | Continuity of Care Document ---
Author Author Nahun MUSE M.D. Organization Unknown Address [address] [place] [id number] Phone [phone] Care Team Providers Care Cowlman Name Role Phone Connie Joseph AUTM [phone] Problems Active Problems Provider Date Abdominal pain Vickey Muse M.D. Onset: 03/11/20 21 Screening for malignant neoplasm of colon Vickey [...] Tablets Unknown Multiple Vitamin Tablets Unknown D3-50 10917Egor Capsules Unknown Potassium 99mg Tablets Unknown Xarelto [...] F Results Description No Information Available Procedures Date Code Description Status 03/11/2021 84049 Office/Outpatient Established Mo d MDM 30-39 Min Completed Medical Devices Description No Information Available Encounters Type Date Location Provider Dx Diagnosis Office Visit 03/11/2021 1:15p Main Office Vickey Muse M.D. R 63.4 Abnormal weight loss R10.9 Unspecified abdominal pain Assessments Date Code Description Provider 03/11/2021 R63.4 [...]
--- OUTSIDE RECORDS SUMMARY | 2021-04-30 08:56 | CCD ---
Continuity of Care Document (CCD) Created on: 02/27/2021 KevinCristian mcgrathtelma Drew External Reference #: [id number] : [id number] Sex: Male Author Author Nahun PERRY DO Organization Unknown Address [address] [facility] [address] [place] [address] Phone [phone] Care Team Providers Care Sugar Boiler Name Role Phone Humaira Silva JR, MD AUTM Connie Joseph AUTM [phone] Harry Eason MD AUTM [phone] Iona Oneil MD AUTM Unavailable Problems Active Problems Provider Date Coronary arteriosclerosis Onset: 997 Essential hypertension Aurelia Matamoros D.O. Onset: Pure hypercholesterolemia Aurelia Matamoros D.O. Onset: 03/18/2011 Impotence of organic origin Aurelia Matamoros D.O. Onset : 03/18/2011 Sleep apnea Aurelia Matamoros D.O. Onset: 2010 Diverticulitis of colon Ricardo Perry MD Onset: [phone] Type 2 diabetes mellitus MYRIAM Sifuentes Onset: 11/15/19 20 Social History Type Date Description Comments Sex Unknown ETOH Use Occasionally consumes beer Tobacco Use Start: Unknown Patient has never smoked Allergies, Adverse Reactions, Alerts Description No Known Drug Allergies Medications Active Medications SIG Qnty Indications Ordering Provide r Date Famotidine 40mg Tablets 1 by mouth every day 90tabs GEORGES German 01/20/2021 Atorvastatin Calcium 40mg Tablets 1 by mouth every day 90tabs GEORGES German 12/31/2020 Metformin HCL 500mg Tablets one by mouth at dinnertime 90tabs Connie Joseph, [place] 11/17/2019 Glucosamine Chondroitin 1500 Complex 1500Com Capsules 1 by mouth every day Connie Joseph, [place] 05/30/2018 Areds2 1 Daily Connie Joseph, [place] 11/20 Nitrostat 0.4mg Tablets Sub one under tongue every 5 minutes x 3 as needed for chest discomfort 25tabs Connie Joseph, [place] 12/08/2017 Mens Multi Vitamin & Mineral Formula Tablets Connie Joseph, [place] 017 Aspirin 81mg Tablets 1 po qd 30tabs Vijaya Edmonds, [place] 11/29/2008 Vitamin D3 High Potency 1000Unit C apsules 1 by mouth every day Unknown Metoprolol Succinate ER 50mg Tablets ER 24HR take 1 tablet by mouth once daily 90tabs Connie Joseph, ANP Xarelto 20mg Tablets take one tablet by mouth every day with food 90tabs Connie Joseph, [facility] 0 Digoxin 250mcg Tablets take 1 tablet by mouth once daily 90tabs Connie Joseph, ANP Potassium 99mg Tablets 1 by mouth every day Unknown Medications Administered in Office Medication SIG Qnty Indications Ordering Provider Date Covid-19 vaccine, Unspecified Inj ection Unknown 07/22/2020 Covid-19 vaccine, Unspecified Inj ection Unknown 07/03/2020 Administration Of Flu Vaccine Inj ection Connie Joseph, [place] 04/16/2020 Administration Of Flu Vaccine Inj ection Connie Joseph, [place] 06/12/2019 Administration Of Flu Vaccine Inj ection Connie Joseph, [place] 05/05/2018 Administration Of Flu Vaccine Inj ection Ricardo Perry MD 04/06/2017 Administration Of Flu Vaccine Inj ection Aurelia Matamoros D.O. 04/28 Administration Of Flu Vaccine Inj ection Aurelia Matamoros D.O. 04/09 Administration Of Flu Vaccine Inj ection Aurelia Matamoros D.O. 05/03 Administration Of Flu Vaccine Inj ection Aurelia Matamoros, D.O. 03/18 Administration Of Flu Vaccine Inj ection Alejandro EdmondsO. 04/15 Administration Of Flu Vaccine Inj ection Aurelia Matamoros D.O. 05/19 Administration Of Flu Vaccine Inj karenaion Alejandro EdmondsO. 04/11 Immunizations CPT Code Status Date Vaccine Lot # [id number] Given 04/16/2020 Influenza Vaccin e Quadrivalent Preser/Antibiotic Free Im Use [id number] 65090 Given 06/12/2019 Influenza Vaccin e Quadrivalent Preser/Antibiotic Free Im Use [id number] 60145 Given 05/05/2018 Influenza Virus Vaccine, Quadrivalent ([id number]), Derived From 5 Given 04/06/2017 Influenza Vaccin e Quadrivalent Preser/Antibiotic Free Im Use [id number] Q2037 Given 04/28/2016 Fluvirin Virus Vaccine [id number] 01 Q2037 Given 04/09/2015 Fluvirin Virus Vaccine 88065 01 Q2037 Given 05/03/2014 Fluvirin Virus Vaccine 07050 01 01823 Given 03/18/2009 Influenza Virus Vaccine 64357 Given 06/22/2008 Pneumovax 23 70197 Given 04/15/2007 Influenza Virus Vaccine 42282 Given 05/19/2006 Influenza Virus Vaccine 71863 Given 04/11/2001 Influenza Virus Vaccine 95557 Given 05/27/1998 Influenza Virus Vaccine 91589 Given 05/25/1997 Influenza Virus Vaccine 39139 Given 06/04/1993 Influenza Virus Vaccine Vital Signs Date Vital Result Comment 02/19/2021 10:37am BP Systolic 118 mmHg BP Diastolic 60 mmHg Heart Rate 84 /min Height 69 inches 5'9" Weight 190.00 lb O2 % BldC Oximetry 96 % BMI (Body Mass Index) 28.1 kg/m2 01/20/2021 9:28am BP Systolic 100 mmHg BP Diastolic 60 mmHg Heart Rate 74 /min Height 69 inches 5'9" Weight 193.00 lb O2 % BldC Oximetry 98 % BMI (Body Mass Index) 28.5 kg/m2 Results Test Acquired Date Facility Test Result H/L Range Note Laboratory test finding 02/19/[address] [address] [phone] Ferritin 253 NG/ML Normal 26-388 Serum Protein Elect W/RFX 02/19/[address] [address] [phone] Albumin % 51.5 % Low 55.8-66.1 Kzour-6-Knuejhil % 7.1 % High 2.9-4.9 Aihrb-6-Ojhhpsbzh % 16.4 % High 7.1-11.8 Huxj-2-Kuztjfeul % 5.5 % Normal 4.7-7.2 Wjut-3-Gqvvmfufw % 5.9 % Normal 3.2-6.5 Gamma Globulin % 13.6 % Normal 11.1-18.8 Albumin 3.61 GM/DL Normal 3.29-5.55 Ahcyr-4-Taujzwjty 0.50 GM/DL High 0.17-0.41 Gfjks-8-Mnvdiwxao 1.15 GM/DL High 0.42-0.99 Slca-0-Fstobygin 0.39 GM/DL Normal 0.28-0.60 Rumd-2-Acrlzimme 0.41 GM/DL Normal 0.19-0.55 Gamma Globulins 0.95 GM/DL Normal 0.65-1.58 Total Protein 7.0 GM/DL Normal 6.4-8.2 Spep Interpretation For RFX SEE COMMENT Normal 1 Spep Pathologist Review REV'D BY O ADJAP <SEE NOTE> Normal 2 Free [place] & Lambda LT Chains 02/19/[address] [address] [phone] Free [place] Light Chains Serum 26.4 mg/L High 3. 3-19.4 Free Lambda Light Chains Serum 35.4 mg/L High 5.7-26.3 [place]/Lambda Ratio Serum 0.75 Normal 0.26-1.65 3 Immunotyping (Immunofixation) Serum (If 02/19/[address] [address] [phone] Immunotyping Serum Igg ABNORMAL High Normal Immunotyping Serum Lambda ABNORMAL High Normal It Serum Interpretation SEE COMMENT Normal 4 Its Pathologist Review REV'D BY O ADJAP <SEE NOTE> Normal 5 Complete Blood Count 02/19/2021 [facility] Manufacturing Finance Manager: [place] [address] [phone] WBC 5.6 x10*3/UL 4.1 - 10.9 6 RBC 3.66 x10*6/UL Low 4.20 - 6.30 Hemoglobin 11.3 g/dL Low 12.0 - 18.0 Hematocrit 32.9 % Low 37.0 - 51.0 MCV 89.9 fL 80.0 - 97.0 MCH 30.8 pg 26.0 - 32.0 MCHC 34.3 g/dL 31.0 - 38.0 RDW 12.4 % 11.6 - 13.7 PLT 271 x10*3/UL 140 - 440 MPV 7.1 FL Low 7.8 - 11.0 Lymph % 13.4 % 10.0 - 58.5 Mid % 3.7 % 1.7 - 9.3 Neut % 82.9 % 37.0 - 92.0 Lymph # 0.7 x10*3/UL 0.6 - 4.1 Mid # 0.2 x10*3/UL 0.1 - 0.6 Neut # 4.7 x10*3/UL 2.0 - 7.8 Comprehensive Chem Profile 02/19/2021 [facility] [employer] Finance Manager: [place] [address] [phone] Glucose 111 mg/dL High 74 - 99 7 BUN 13 mg/dL 7 - 18 Creatinine 0.8 mg/dL 0.6 - 1.3 Sodium 139 mEq/L 136 - 145 Potassium 4.2 mEq/L 3.5 - 5.1 Chloride 103 mEq/L 98 - 107 Carbon Dioxide 26 mEq/L 21 - 32 Calcium 9.2 mg/dL 8.5 - 10.1 Alk. Phosphatase 111 mg/dL 46 - 116 Total Bilirubin 1.0 mg/dL 0.2 - 1.0 Ast (Sgot) 34 U/L 15 - 37 Alt (SGPT) 28 U/L 12 - 78 Albumin 3.5 g/dL 3.4 - 5.0 Total Protein 7.0 g/dL 6.4 - 8.2 A/G Ratio 1.00 CALC 1.00 - 1.90 GFR >= 60 mL/min >60 GFR >= 60 mL/min >60 8 Ua Dipstick Only 02/19/2021 [facility] Manufacturing Finance Manager: [place] [address] [phone] Urine Color YELLOW Yellow Urine Appearance CLEAR Clear Urine PH 6.5 units 5.0 - 9.0 Urine Specific [place] 1.020 1.005 - 1.030 Urine Leukocytes NEGATIVE Negative Urine Blood NEGATIVE Negative Urine Protein NEGATIVE Negative -Trace Urine Glucose NEGATIVE mg/dL Negative Urine Nitrite NEGATIVE Negative Urine Ketone NEGATIVE mg/dL Negative Urine Bilirubin NEGATIVE Negative Urine Urobilinogen 0.2 mg/dL 0.2 - 1.0 Total Iron Binding Capacit 02/19/[address] [address] [phone] Iron (Fe) 39 g/dL Low 65-175 Total Iron Binding Capacity 288 g/dL Normal 250-450 Percent Saturation 13.5 % Low 19.7-50.0 Influenza A/B RSV Covid Amp 02/14/[address] [address] [phone] Influenza A Amplification NEGATIVE Normal Negati ve 9 Influenza B Amplification NEGATIVE Normal Negative 10 RSV Amplification NEGATIVE Normal Negative 11 Sars Covid-19 Amplification NEGATIVE Normal Negative 12 Basic Metabolic Profile 02/13/[address] [address] [phone] Glucose, Fasting 122 mg/dL High 70-100 Blood Urea Nitrogen 15 mg/dL Normal 7-18 Creatinine For GFR 0.90 mg/dL Normal 0.70-1.30 Glomerular Filtration Rate > 60.0 Normal >35 1 3 Sodium Level 135 mEq/L Low 136-145 Potassium Serum 4.1 mEq/L Normal 3.5-5.1 Chloride Level 102 mEq/L Normal 98-107 Carbon Dioxide Level 25 mEq/L Normal 21-32 Anion Gap 8 mEq/L Normal 8-16 Calcium Level 8.2 mg/dL Low 8.8-10.2 Ua W/ Reflex To Culture 02/13/[address] [address] [phone] Appearance, Urine RFX HAZY Normal Clear Color, Urine RFX YELLOW Normal Yellow PH,Urine RFX 5.0 units Normal 5.0-9.0 Specific [place] Ur Auto RFX 1.017 Normal 1.002-1.035 Protein, Urine Auto RFX NEGATIVE mg/dL Normal Negative Glucose, Urine (Ua) Auto RFX NEGATIVE mg/dL Normal Negative Ketone, Urine Auto RFX TRACE mg/dL High Negative Urobilinogen, Urine Auto RFX 4.0 mg/dL High 0.0-2.0 Bilirubin, Urine Auto RFX NEGATIVE Normal Negative Nitrite, Urine Auto RFX NEGATIVE Normal Negative Leukocyte Esterase Ur Auto RFX NEGATIVE Normal Negative Blood, Urine Blood RFX NEGATIVE Normal Negative WBC, Urine Auto RFX 1 /HPF Normal 0-3 RBC, Urine Auto RFX 1 /HPF Normal 0-3 Bacteria, Urine Auto RFX NEGATIVE Normal Negative Squam Epithelial Cell Ur Aurfx 0 /HPF Normal 0-6 Mucus, Urine RFX MODERATE Normal Negative Hyaline Cast, Urine Auto RFX 0 /LPF Normal 0-1 Laboratory test finding 02/13/2021 [facility] [address] [place] [address] [phone] Osmolality Serum 271 MOSM/KG Low 280-301 Ethyl Alcohol (Ethanol) < 0.003 % Normal 0.000-0.010 Thyroid Stimulating Hormone 2.530 uIU/ML Normal 0.358-3.740 Free T4 1.06 ng/dL Normal 0.76-1.46 Digoxin Level 1.2 NG/ML Normal 0.5-2.0 Acetone Level 02/13/2021 [facility]ter [address] [place] [address] [phone] Acetone/Ketone 2.52 mg/dL Normal <2.81 Cardiac Marker Panel 02/13/[address] [facility] enter [address] [place] [address] [phone] CPK Creatine Phosphokinase 192 U/L Normal 39-30 8 CK-MB Value Mass 1.1 NG/ML Normal <3.6 MB/CK Relative Index 0.57 Normal < Or =4 14 Troponin I 0.02 NG/ML Normal < 0.10 15 Prothrombin Time/Inr 02/13/[address] [facility] enter [address] [place] [address] [phone] Prothrombin Time 25.2 seconds High 12.7-14.5 Inr 2.24 Normal 16 Hemoglobin A1c 02/13/2021 [facility] [address] [place] [address] [phone] Hemoglobin A1c 5.7 % Normal 17 Estimated Average Glucose 117 mg/dL High 60-110 CBC With Differential 02/13/2021 [place] [address] [place] [address] [phone] White Blood Count 6.6 10 Normal 4.0-10.0 Red Blood Count 3.51 10 Low 4.30-6.10 Hemoglobin 11.1 g/dL Low 13.5-17.5 Hematocrit 33.0 % Low 42.0-52.0 Mean Corpuscular Volume 94.0 fl Normal 80.0-96.0 Mean Corpuscular Hemoglobin 31.6 pg Normal 27.0-33.0 Mean Corpuscular HGB Conc 33.6 g/dL Normal 32.0-36.5 Red Cell Distribution Width 12.3 % Normal 11.5-14.5 Platelet Count, Automated 135 10 Low 150-450 Neutrophils % 71.8 % High 36.0-66.0 Lymph % 11.4 % Low 24.0-44.0 [place] % 15.0 % High 2.0-8.0 Eos % 0.2 % Normal 0.0-3.0 Baso % 0.5 % Normal 0.0-1.0 Immature Granulocyte % 1.1 % Normal 0-3.0 Nucleated Red Blood Cell % 0.0 % Normal 0-0 Neutrophils # 4.7 10 Normal 1.5-8.5 Lymph # 0.8 10 Low 1.5-5.0 [place] # 1.0 10 High 0.0-0.8 Eos # 0.0 10 Normal 0.0-0.5 Baso # 0.0 10 Normal 0.0-0.2 Laboratory test finding 02/13/[address] [address] [phone] Bedside Glucose 123 mg/dL High 83-110 Laboratory test finding 02/13/[address] [address] [phone] Partial Thromboplastin Time 55.6 seconds High 25 .9-37.0 Lactic Acid Sepsis Protocol 1.2 mmol/L Normal 0.4-2.0 18 Basic Metabolic Panel 02/05/2021 [facility] Manufacturing Finance Manager: Dr Ricardo Perry [place], [place] [address] [phone] Glucose 132 mg/dL High 74 - 99 19 BUN 9 mg/dL 7 - 18 Creatinine 0.9 mg/dL 0.6 - 1.3 Sodium 138 mEq/L 136 - 145 Potassium 4.2 mEq/L 3.5 - 5.1 Chloride 103 mEq/L 98 - 107 Carbon Dioxide 29 mEq/L 21 - 32 Calcium 9.6 mg/dL 8.5 - 10.1 GFR >= 60 mL/min >60 GFR >= 60 mL/min >60 20 A1c 02/05/2021 [facility] Manufacturing Finance Manager: Dr Ricardo Perry [place], [place] [address] [phone] Hba1c 5.6 % <5.7 21 Est Avg Glucose 114 mg/dL High 60 - 110 Microalbumin/Creatinine Urine 02/05/2021 [facility] Manufacturing Finance Manager: Dr Ricardo Perry [place], [place] [address] [phone] Microalbumin Urine 6.1 mg/L 1.3 - 20.0 Urine Creatinine 121.2 mg/dL 30.0 - 125.0 Microalb/Creat Ratio 5.0 ug/mg 0.0 - 30.0 Laboratory test finding 12/31/2020 [facility] [address] [place] [address] [phone] Lipase 223 U/L Normal 73-393 Comprehensive Chem Profile 12/31/2020 [facility] Manufacturing Finance Manager: [place] [address] [phone] Glucose 98 mg/dL 74 - 99 22 BUN 12 mg/dL 7 - 18 Creatinine 0.9 mg/dL 0.6 - 1.3 Sodium 140 mEq/L 136 - 145 Potassium 4.6 mEq/L 3.5 - 5.1 Chloride 103 mEq/L 98 - 107 Carbon Dioxide 32 mEq/L 21 - 32 Calcium 9.6 mg/dL 8.5 - 10.1 Alk. Phosphatase 104 mg/dL 46 - 116 Total Bilirubin 0.9 mg/dL 0.2 - 1.0 Ast (Sgot) 32 U/L 15 - 37 Alt (SGPT) 28 U/L 12 - 78 Albumin 3.8 g/dL 3.4 - 5.0 Total Protein 7.2 g/dL 6.4 - 8.2 A/G Ratio 1.12 CALC 1.00 - 1.90 GFR >= 60 mL/min >60 GFR >= 60 mL/min >60 23 Complete Blood Count 12/31/2020 [facility] Manufacturing Finance Manager: [place] [address] [phone] WBC 5.2 x10*3/UL 4.1 - 10.9 RBC 4.38 x10*6/UL 4.20 - 6.30 Hemoglobin 13.6 g/dL 12.0 - 18.0 Hematocrit 40.4 % 37.0 - 51.0 MCV 92.1 fL 80.0 - 97.0 MCH 31.1 pg 26.0 - 32.0 MCHC 33.8 g/dL 31.0 - 38.0 RDW 12.7 % 11.6 - 13.7 PLT 184 x10*3/UL 140 - 440 MPV 7.6 FL Low 7.8 - 11.0 Lymph % 17.6 % 10.0 - 58.5 Mid % 5.4 % 1.7 - 9.3 Neut % 77.0 % 37.0 - 92.0 Lymph # 0.9 x10*3/UL 0.6 - 4.1 Mid # 0.3 x10*3/UL 0.1 - 0.6 Neut # 4.0 x10*3/UL 2.0 - 7.8 Laboratory test finding 12/31/[address] [address] [phone] Digoxin Level 1.2 NG/ML Normal 0.5-2.0 Lyme Disease SCRN With Confirm 12/31/[address] [address] [phone] Lyme Disease IgG/IgM Antibodie <0.91 ISR Normal 0 .00-0.90 24 Lyme Disease IgM Ab Quantitati <0.80 index Normal 0.00-0.79 25 Complete Blood Count 10/16/2020 [facility] Manufacturing Finance Manager: [place] [address] [phone] WBC 5.0 x10*3/UL 4.1 - 10.9 RBC 4.40 x10*6/UL 4.20 - 6.30 Hemoglobin 13.9 g/dL 12.0 - 18.0 Hematocrit 40.5 % 37.0 - 51.0 MCV 91.9 fL 80.0 - 97.0 MCH 31.6 pg 26.0 - 32.0 MCHC 34.3 g/dL 31.0 - 38.0 RDW 12.5 % 11.6 - 13.7 PLT 167 x10*3/UL 140 - 440 MPV 8.1 FL 7.8 - 11.0 Lymph % 17.3 % 10.0 - 58.5 Mid % 4.6 % 1.7 - 9.3 Neut % 78.1 % 37.0 - 92.0 Lymph # 0.8 x10*3/UL 0.6 - 4.1 Mid # 0.3 x10*3/UL 0.1 - 0.6 Neut # 3.9 x10*3/UL 2.0 - 7.8 A1c 10/16/2020 [facility] Manufacturing Finance Manager: [place] [address] [phone] Hba1c 5.9 % High <5.7 26 Est Avg Glucose 123 mg/dL High 60 - 110 Comprehensive Chem Profile 10/16/2020 [facility] Manufacturing Finance Manager: [place] [address] [phone] Glucose 120 mg/dL High 74 - 99 27 BUN 13 mg/dL 7 - 18 Creatinine 1.0 mg/dL 0.6 - 1.3 Sodium 140 mEq/L 136 - 145 Potassium 4.3 mEq/L 3.5 - 5.1 Chloride 102 mEq/L 98 - 107 Carbon Dioxide 30 mEq/L 21 - 32 Calcium 9.3 mg/dL 8.5 - 10.1 Alk. Phosphatase 97 mg/dL 46 - 116 Total Bilirubin 1.0 mg/dL 0.2 - 1.0 Ast (Sgot) 29 U/L 15 - 37 Alt (SGPT) 25 U/L 12 - 78 Albumin 4.4 g/dL 3.4 - 5.0 Total Protein 7.7 g/dL 6.4 - 8.2 A/G Ratio 1.33 CALC 1.00 - 1.90 GFR >= 60 mL/min >60 GFR >= 60 mL/min >60 28 Lipid Profile 10/16/2020 [facility] Manufacturing Finance Manager: Dr Ricardo Perry [place], [place] [id number] [phone] Cholesterol 85 mg/dL Low 131 - 200 Triglycerides 155 mg/dL High 30 - 150 HDL Cholesterol 37 mg/dL 35 - 60 LDL (Calculated) INVALID CALC 50 - 159 1 A SERUM IMMUNOTYPE HAS BEEN REFLEX ADDED TO THIS SPECIMEN. M-SPIKE NOTED IN LATE GAMMA REGION. CONCENTRATION = 0.32 GM/DL 2 REV'D BY Nola VICTORIA 3 Performed at: RN - [facility] [address] [id number] Manufacturing Finance Manager: Alvina Puckett MD, Phone: [phone] MONOCLONAL IGG LAMBDA 5 REV'D BY Nola VICTORIA 6 NOTE: CBC VERIFIED 7 100-125 mg/dL PRE-DIABET ES/FASTING >126 mg/dL DIABETES/FASTING 8 CHRONIC KIDNEY DISEASE STAGI NG PER NKF STAGE I & II GFR >= 60 NORMAL TO MILDLY DECREASED STAGE III GFR 30-59 MODERATELY DECREASED STAGE IV GFR 15-29 SEVERELY DECREASED STAGE V GFR <15 VERY LITTLE GFR LEFT ESRD GFR <15 ON LETTUCE TRIMMER 9 Negative results do not prec lude influenza or RSV virus infection and should not be used as the sole basis for treatment or other patient management decisions. 10 Negative results do not prec lude influenza or RSV virus infection and should not be used as the sole basis for treatment or other patient management decisions. 11 Negative results do not prec lude influenza or RSV virus infection and should not be used as the sole basis for treatment or other patient management decisions. 12 A false negative result may occur if a specimen is improperly collected, transported or handled. False negative results may also occur if inadequate numbers of organisms are present in the specimen. As with any molecular test, mutations within the target regions of Xpert Xpress SARS-CoV-2 could affect primer and/or probe binding resulting in failure to detect the presence of virus. This test cannot rule out diseases caused by other bacterial or viral pathogens. DISCLAIMER: Testing was performed using the [facility] SARS-CoV-2 test. This test was developed and its performance characteristics determined by [facility]. This test has not been FDA cleared or approved. This test has been authorized by FDA under an Emergency Use Authorization (EUA). This test is only authorized for the duration of time the declaration that circumstances exist justifying the authorization of the emergency use of in vitro diagnostic tests for detection of SARS-CoV-2 virus and/or diagnosis of COVID-19 infection under section 564(b)(1) of the Act, 21 U.S.C. 360bbb-3(b)(1), unless the authorization is terminated or revoked sooner. 13 Units are mL/min/1.73 m2 Chronic Kidney Disease Staging per NKF: Stage I & II GFR >=60 Normal to Mildly Decreased Stage III GFR 30-59 Moderately Decreased Stage IV GFR 15-29 Severely Decreased Stage V GFR <15 Very Little GFR Left ESRD GFR <15 on LETTUCE TRIMMER 14 DIAGNOSIS CRITERIA MMB ng/ml Relative Index (RI) NON-AMI < or = 5 N/A LAWSON ZONE > 5 < or = 4 AMI > 5 > 4 15 Troponin I Reference Interva l for Siemens [place] LOCI: 99th Percentile= 0.00-0.045 ng/ml Risk Stratification: <= 0.10 ng/ml Decreased Risk for Adverse Clinical Events. 0.10-1.50 ng/ml Increased Risk for Adv erse Clinical Events. Evaluation of additional criterion and/or repeat testing in 2-6 hours is suggested to rule out myocardial damage. >= 1.50 ng/ml Indicative of Myocardial Injury. 16 THERAPUTIC HUMAN INR VALUES INDICATIONS NORMAL RANGES PROPHYLAXIS/TREATMENT OF: VENOUS THROMBOSIS 2.0-3.0 PULMONARY EMBOLISM 2.0-3.0 PREVENTION OF SYSTEMIC EMBOLISM FROM: TISSUE HEART VALVES 2.0-3.0 ACUTE MYOCARDIAL INFARCTION 2.0-3.0 VALVULAR HEART DISEASE 2.0-3.0 ATRIAL FIBRILLATION 2.0-3.0 MECHANICAL VALVES(HIGH RISK) 2.5-3.5 RECURRENT MYOCARDIAL INFARCTION 2.5-3.5 17 REFERENCE RANGES: <=5.6% NORMAL 5.7-6.4% SUGGESTS IMPAIRED GLUCOSE META BOLISM/PREDIABETIC >= 6.5% ABNORMAL 18 Y/N query for Sepsis Lactate Rule: Y 19 100-125 mg/dL PRE-DIABET ES/FASTING >126 mg/dL DIABETES/FASTING 20 CHRONIC KIDNEY DISEASE STAGI NG PER NKF STAGE I & II GFR >= 60 NORMAL TO MILDLY DECREASED STAGE III GFR 30-59 MODERATELY DECREASED STAGE IV GFR 15-29 SEVERELY DECREASED STAGE V GFR <15 VERY LITTLE GFR LEFT ESRD GFR <15 ON LETTUCE TRIMMER 21 Lab Result Notes: Pre-Diabetes 5.7 - 6.4 % Diabetes = or > 6.5% 22 100-125 mg/dL PRE-DIABET ES/FASTING >126 mg/dL DIABETES/FASTING 23 CHRONIC KIDNEY DISEASE STAGI NG PER NKF STAGE I & II GFR >= 60 NORMAL TO MILDLY DECREASED STAGE III GFR 30-59 MODERATELY DECREASED STAGE IV GFR 15-29 SEVERELY DECREASED STAGE V GFR <15 VERY LITTLE GFR LEFT ESRD GFR <15 ON LETTUCE TRIMMER 24 Negative <0.91 Equivocal 0.91 - 1.09 Positive >1.09 25 Negative <0.80 Equivocal 0.80 - 1.19 Positive >1.19 . IgM levels may peak at 3-6 weeks post infection, then gradually decline. Performed at: RN - [facility] [address] [id number] Manufacturing Finance Manager: Alvina Puckett MD, Phone: [phone] Lab Result Notes: Pre-Diabetes 5.7 - 6.4 % Diabetes = or > 6.5% 27 100-125 mg/dL PRE-DIABET ES/FASTING >126 mg/dL DIABETES/FASTING 28 CHRONIC KIDNEY DISEASE STAGI NG PER NKF STAGE I & II GFR >= 60 NORMAL TO MILDLY DECREASED STAGE III GFR 30-59 MODERATELY DECREASED STAGE IV GFR 15-29 SEVERELY DECREASED STAGE V GFR <15 VERY LITTLE GFR LEFT ESRD GFR <15 ON LETTUCE TRIMMER Procedures Date Code Description Status 01/20/2021 65040 Office/Outpatient Established Lo w MDM 20-29 Min Completed 12/31/2020 71538 Office/Outpatient Established Mo d MDM 30-39 Min Completed 12/19/2020 69054 Chronic Care MGMT 20 Mins Clinical Staff Time Per Calendar Month Completed 10/23/2020 87852 Chronic Care MGMT 20 Mins Clinical Staff Time Per Calendar Month Completed 10/16/2020 00403 Office/Outpatient Established Mo d MDM 30-39 Min Completed 09/03/2020 54144 Chronic Care MGMT 20 Mins Clinical Staff Time Per Calendar Month Completed 05/20/2020 [id number] Colonoscopy Completed 03/03/2017 [id number] Colonoscopy Completed 12/24/2016 [id number] Diabetic Retinal Eye Exam Comple patricia 02/27/2013 [id number] Colonoscopy Completed 08/22/2007 [id number] Colonoscopy Completed Medical Devices Description No Information Available Encounters Type Date Location Provider Dx Diagnosis [facility] Abnormal weight loss R10.9 Unspecified abdominal pain I10 Essential (primary) hyperten lacey E78.00 Pure hypercholesterolemia, u nspecified Z79.84 superintendent container terminal (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 o ral hypoglycemic drugs 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, unsp I48.21 Permanent atrial fibrillatio n Z79.01 superintendent container terminal (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 a nticoagulants G47.33 Obstructive sleep apnea (kike lt) (pediatric) Office Visit 12/31/2020 [facility] R[facility]9 Unspecified abdominal pain R63.4 Abnormal weight loss S30.861A Insect bite (nonvenomous) of abdominal wall, init encntr I10 Essential (primary) hyperten lacey E78.00 Pure hypercholesterolemia, u nspecified 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, [facility] 10/16/2020 [facility] 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, unsp I48.21 Permanent atrial fibrillatio n Z79.01 superintendent container terminal (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 a nticoagulants E78.00 Pure hypercholesterolemia, u nspecified I10 Essential (primary) hyperten lacey G47.33 Obstructive sleep apnea (kike lt) (pediatric) Z13.89 Encounter for screening for other disorder Assessments Date Code Description Provider 02/19/2021 I10 Essential (primary) hypertension Rowdy Perry, 02/19/2021 I48.21 Permanent atrial fibrillation Ch alexia Perry DO 02/19/2021 Z79.01 FDC (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 antic oagulants Jbdirkmonika Perry, DO 02/19/2021 E11.40 Type 2 diabetes steve itus with diabetic neuropathy, unspecified Rowdy Jarrellg, DO 02/19/2021 G47.33 Obstructive sleep apnea (adult) (pediatric) Rowdy Perry, DO 02/19/2021 D64.9 Anemia, unspecified Rowdy Vegalogg, DO 02/19/2021 D47.2 Monoclonal gammopathy Jose Perry, DO 02/19/2021 R63.4 Abnormal weight loss Rowdy Perry, DO 02/19/2021 I35.0 Nonrheumatic aortic (valve) sten osis Rowdy Perry, DO 02/19/2021 D69.6 Thrombocytopenia, unspecified Ch zechariahelvia Vegalogg, DO 02/05/2021 E11.40 Type 2 diabetes steve itus with diabetic neuropathy, unspecified Connie Joseph, ANP 02/05/2021 E11.40 Type 2 diabetes steve itus with diabetic neuropathy, unspecified Lab Schedule 02/05/2021 I10 Essential (primary) hypertension Connie Joseph, ANP 02/05/2021 I10 Essential (primary) hypertension Lab Schedule 01/20/2021 R63.4 Abnormal weight loss Connie Anderson icer, ANP 01/20/2021 R10.9 Unspecified abdominal pain Connie Joseph, ANP 01/20/2021 I10 Essential (primary) hypertension Connie Joseph, ANP 01/20/2021 E78.00 Pure hypercholesterolemia, unspe cified Connie Joseph, ANP 01/20/2021 Z79.84 FDC (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 oral hypoglycemic drugs Connie Joseph, ANP 01/20/2021 E11.40 Type 2 diabetes steve itus with diabetic neuropathy, unspecified Connie Joseph, ANP 01/20/2021 I48.21 Permanent atrial fibrillation Na deysi Joseph, ANP 01/20/2021 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 Connie Joseph, ANP 01/20/2021 G47.33 Obstructive sleep apnea (adult) (pediatric) Connie Joseph, [place] 12/31/2020 R10.9 Unspecified abdominal pain Connie Joseph, [place] 12/31/2020 R63.4 Abnormal weight loss Connie Anderson icer, ANP 12/31/2020 S30.861A Insect bite (nonveno mous) of abdominal wall, initial encounter Connie Joseph, [place] 12/31/2020 I10 Essential (primary) hypertension Connie Joseph, [place] 12/31/2020 E78.00 Pure hypercholesterolemia, unspe cified Connie Joseph, [place] 12/31/2020 E11.40 Type 2 diabetes steve itus with diabetic neuropathy, unspecified Connie Joseph, [place] 12/19/2020 G47.33 Obstructive sleep apnea (adult) (pediatric) Ricardo Perry MD 12/19/2020 I10 Essential (primary) hypertension Ricardo Perry MD 12/19/2020 E78.00 Pure hypercholesterolemia, unspe cified Ricardo Perry MD 10/23/2020 I10 Essential (primary) hypertension Ricardo Perry MD 10/23/2020 E78.00 Pure hypercholesterolemia, unspe cified Ricardo Perry MD 10/23/2020 I48.21 Permanent atrial fibrillation Co nael Perry MD 10/16/2020 E11.40 Type 2 diabetes steve itus with diabetic neuropathy, unspecified Connie Joseph, [place] 10/16/2020 I48.21 Permanent atrial fibrillation Esther Joseph, [place] 10/16/2020 Z79.01 FDC (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 antic oagulants Connie Joseph, [place] 10/16/2020 E78.00 Pure hypercholesterolemia, unspe cified Connie Joseph, [place] 10/16/2020 I10 Essential (primary) hypertension Connie Joseph, [place] 10/16/2020 G47.33 Obstructive sleep apnea (adult) (pediatric) Connie Joseph, [place] 10/16/2020 Z13.89 Encounter for screening for othe r disorder GEORGES German 09/03/2020 I10 Essential (primary) hypertension Ricardo Perry MD 09/03/2020 G47.33 Obstructive sleep apnea (adult) (pediatric) Ricardo Perry MD 09/03/2020 E78.00 Pure hypercholesterolemia, unspe cified Ricardo Perry MD Plan of Treatment Future Appointment(s):* 05/14/2021 10:40 am - [place] German at [facility] 02/19/2021 - Rowdy Perry DO* I10 Essential (primary) hypertension* Comments:* Blood pressure is improved off of dilt and lasix. With these changes he is feeling better, his chronic afib remains rate controlled and from a cardiovascular standpoint he appears euvolemic at this time. Will continue with current meds as listed in MAR, his MAR was updated to reflect these changes. * I48.21 Permanent atrial fibrillation* Comments:* Rate controlled on metoprolol only and remains on DOAC. He does have new anemia without a clear source of bleeding, will continue DOAC for now and monitor closely. * Z79.01 FDC (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 anticoagulants * E11.40 Type 2 diabetes mellitus with diabetic neuropathy, unspecified * G47.33 Obstructive sleep apnea (adult) (pediatric)* New Orders:* pt needs harness for his Cpap machine, Ordered: 02/19/21 * D64.9 Anemia, unspecified* Comments:* New anemia compared to prior labs, suspect its related to blood loss given the acute drop, however given his MGUS history, will evaluate for progression of this. He mentions he may have had some gross hematuria, will check a UA as well. * D47.2 Monoclonal gammopathy * R63.4 Abnormal weight loss* Comments:* Unclear etiology at this time, recent CT abd as above with chronic ascites and splenomegaly and focal areas of wall thickening. I do not believe he has ever had a para. He does have new anemia and thrombocytopenia, he does have some vague abd pain which we are going to evaluate with endoscopy with the help of GI. We will reassess labs today and proceed accordingly. I would like him to set up a follow appt with heme/onc as well. * I35.0 Nonrheumatic aortic (valve) stenosis* Comments:* ?Low flow low gradient at last TTE, severe could explain some of his symptoms. He reports an upcoming f/u cardiology and TTE appt. * D69.6 Thrombocytopenia, unspecified Functional Status Description No Information Available Mental Status Description No Information Available Referrals Refer to Reason for Referral Status Appt Date Vickey Muse MD CONSULT FOR SCREENING EGD/COLONOSCOPY Sander hernández Notified 03/11/[address] [place] [address] [phone]
--- OUTSIDE RECORDS SUMMARY | 2021-04-30 08:57 | CCD | Continuity of Care Document ---
Author Author Lab Schedule, Nahun P Organization Unknown Address [address] [address] Phone Unavailable Care Team Providers Care Belt Measurer Name Role Phone Humaira Silva JR, MD AUTM [phone] Connie Joseph AUTM [phone] Harry Eason MD AUTM [phone] Iona Oneil MD AUTM Unavailable Problems Active Problems Provider Date Coronary arteriosclerosis Onset: 997 Essential hypertension Aurelia Matamoros D.O. Onset: Pure hypercholesterolemia Aurelia Matamoros D.O. Onset: 03/18/2011 Impotence of organic origin Aurelia Matamoros D.O. Onset : 03/18/2011 Sleep apnea Aurelia Matamoros D.O. Onset: 2010 Diverticulitis of colon Ricardo Bashir MD Onset: 017 Type 2 diabetes mellitus [...] Tablets one by mouth at dinnertime 90tabs GE[place]GES German 11/17/2019 Glucosamine Chondroitin 1500 Complex 1500Com Capsules 1 by mouth every day Connie Joseph, [facility] 05/30/2018 Areds2 1 Daily Connie Joseph, [place] 11/20 Nitrostat 0.4mg Tablets Sub one under tongue every 5 minutes x 3 as needed for chest discomfort 25tabs Connie Joseph, ANP 12/08/2017 Mens Multi Vitamin & Mineral Formula Tablets Connie Joseph, [place] 017 Aspirin 81mg Tablets 1 po qd 30tabs Vijaya Edmonds, ANP 11/29/2008 Vitamin D3 High Potency 1000Unit C apsules 1 by mouth every day Unknown Metoprolol Succinate ER 50mg Tablets ER 24HR take 1 tablet by mouth once daily 90tabs Connie Joseph, ANP Diltiazem HCL ER 180mg Caps ER 24H R 1 by mouth every day 90caps Connie Joseph, [facility] Xarelto 20mg Tablets take one tablet by mouth every day with food 90tabs Connie Joseph, [facility] 0 Digoxin 250mcg Tablets take 1 tablet by mouth once daily 90tabs Connie Joseph, ANP Furosemide 40mg Tablets 1/2 by mouth every day 90tabs Connie Joseph, ANP Potassium 99mg Tablets [...] Administration Of Flu Vaccine Inj ection Ricardo Bashir MD 04/06/2017 Administration Of Flu Vaccine Inj ection Aurelia Matamoros D.O. 04/28 Administration Of Flu Vaccine Inj ection Aurelia Matamoros D.O. 04/09 Administration Of Flu Vaccine Inj ection Aurelia Matamoros D.O. 05/03 Administration Of Flu Vaccine Inj ection Aurelia Matamoros D.O. 03/18 Administration Of Flu Vaccine Inj ection Aurelia Matamoros D.O. 04/15 Administration Of Flu Vaccine Inj ection Aurelia Matamoros D.O. 05/19 Administration Of Flu Vaccine Inj ection Aurelia Matamoros D.O. 04/11 Immunizations CPT Code Status Date Vaccine Lot # [id number] Given 04/16/2020 Influenza Vaccin e Quadrivalent Preser/Antibiotic Free Im Use [id number] 49991 Given 06/12/2019 Influenza Vaccin e Quadrivalent Preser/Antibiotic Free Im Use 532857 53374 Given 05/05/2018 Influenza Virus Vaccine, Quadrivalent ([id number]), Derived From 7 Given 04/06/2017 Influenza Vaccin e Quadrivalent Preser/Antibiotic Free Im Use [id number] Q2037 Given 04/28/2016 Fluvirin Virus Vaccine 41445 01 Q2037 Given 04/09/2015 Fluvirin Virus Vaccine 74154 01 Q2037 Given 05/03/2014 Fluvirin Virus Vaccine 65858 01 17426 Given 03/18/2009 Influenza Virus Vaccine 91528 Given 06/22/2008 Pneumovax 23 33876 Given 04/15/2007 Influenza Virus Vaccine 56753 Given 05/19/2006 Influenza Virus Vaccine 55313 Given 04/11/2001 Influenza Virus Vaccine 11791 Given 05/27/1998 Influenza Virus Vaccine 14825 Given 05/25/1997 Influenza Virus Vaccine 07796 Given 06/04/1993 Influenza Virus Vaccine Vital Signs Date Vital Result Comment 01/20/2021 9:28am BP Systolic 100 mmHg BP Diastolic 60 mmHg Heart Rate 74 /min Height 69 inches 5'9" Weight 193.00 lb O2 % BldC Oximetry 98 % BMI (Body Mass Index) 28.5 kg/m2 12/31/2020 10:24am BP Systolic 110 mmHg BP Diastolic 72 mmHg Heart Rate 60 /min Height 69 inches 5'9" Weight 191.00 lb O2 % BldC Oximetry 98 % BMI (Body Mass Index) 28.2 kg/m2 Results Test Acquired Date Facility Test Result H/L Range Note Basic Metabolic Panel 02/05/2021 [facility] Gate Keeper: [place] [address] [phone] Glucose 132 mg/dL High 74 - 99 1 BUN 9 mg/dL 7 - 18 Creatinine 0.9 mg/dL 0.6 - 1.3 Sodium 138 mEq/L 136 - 145 Potassium 4.2 mEq/L 3.5 - 5.1 Chloride 103 mEq/L 98 - 107 Carbon Dioxide 29 mEq/L 21 - 32 Calcium 9.6 mg/dL 8.5 - 10.1 GFR >= 60 mL/min >60 GFR >= 60 mL/min >60 2 A1c 02/05/2021 [facility] Gate Keeper: [place] [address] [phone] Hba1c 5.6 % <5.7 3 Est Avg Glucose 114 mg/dL High 60 - 110 Microalbumin/Creatinine Urine 02/05/2021 [facility] Gate Keeper: [place] [address] [phone] Microalbumin Urine 6.1 mg/L 1.3 - 20.0 Urine Creatinine 121.2 mg/dL 30.0 - 125.0 Microalb/Creat Ratio 5.0 ug/mg 0.0 - 30.0 Laboratory test finding 12/31/[address] [address] [phone] Lipase 223 U/L Normal 73-393 Lyme Disease SCRN With Confirm 12/31/[address] [address] [phone] Lyme Disease IgG/IgM Antibodie <0.91 ISR Normal 0 .00-0.90 4 Lyme Disease IgM Ab Quantitati <0.80 index Normal 0.00-0.79 5 Laboratory test finding 12/31/[address] [address] [phone] Digoxin Level 1.2 NG/ML Normal 0.5-2.0 Complete Blood Count 12/31/2020 [facility] Gate Keeper: [place] [address] [phone] WBC 5.2 x10*3/UL 4.1 - 10.9 RBC [...] Neut # 4.0 x10*3/UL 2.0 - 7.8 Comprehensive Chem Profile 12/31/2020 [facility] Gate Keeper: [place] [address] [phone] Glucose 98 mg/dL 74 - 99 6 BUN 12 mg/dL 7 - 18 Creatinine [...] mL/min >60 GFR >= 60 mL/min >60 7 Complete Blood Count 10/16/2020 [facility] Gate Keeper: [place] [address] [phone] WBC 5.0 x10*3/UL 4.1 - 10.9 RBC [...] 3.9 x10*3/UL 2.0 - 7.8 A1c 10/16/2020 [facility] Gate Keeper: [place] [address] [phone] Hba1c 5.9 % High <5.7 8 Est Avg Glucose 123 mg/dL High 60 - 110 Comprehensive Chem Profile 10/16/2020 [facility] Gate Keeper: [place] [address] [phone] Glucose 120 mg/dL High 74 - 99 9 BUN 13 mg/dL 7 - 18 Creatinine [...] mL/min >60 GFR >= 60 mL/min >60 10 Lipid Profile 10/16/2020 [facility] Gate Keeper: [place] [address] [phone] Cholesterol 85 mg/dL Low 131 - 200 Triglycerides 155 mg/dL High 30 - 150 HDL Cholesterol 37 mg/dL 35 - 60 LDL (Calculated) INVALID CALC 50 - 159 1 100-125 mg/dL PRE-DIABET ES/FASTING >126 mg/dL DIABETES/FASTING 2 CHRONIC KIDNEY DISEASE STAGI NG PER NKF STAGE I & II GFR >= 60 NORMAL TO MILDLY DECREASED STAGE III GFR 30-59 MODERATELY DECREASED STAGE IV GFR 15-29 SEVERELY DECREASED STAGE V GFR <15 VERY LITTLE GFR LEFT ESRD GFR <15 ON CLOTH PRINTER HELPER 3 Lab Result Notes: Pre-Diabetes 5.7 - 6.4 % Diabetes = or > 6.5% 4 Negative <0.91 Equivocal 0.91 - 1.09 Positive >1.09 5 Negative <0.80 Equivocal 0.80 - 1.19 Positive >1.19 . IgM levels may peak at 3-6 weeks post infection, then gradually decline. Performed at: RN - [facility] [address] [id number] Gate Keeper: Alvina Puckett MD, Phone: [phone] 100-125 mg/dL PRE-DIABET ES/FASTING >126 mg/dL DIABETES/FASTING 7 CHRONIC KIDNEY DISEASE STAGI NG PER NKF STAGE I & II GFR >= 60 NORMAL TO MILDLY DECREASED STAGE III GFR 30-59 MODERATELY DECREASED STAGE IV GFR 15-29 SEVERELY DECREASED STAGE V GFR <15 VERY LITTLE GFR LEFT ESRD GFR <15 ON CLOTH PRINTER HELPER 8 Lab Result Notes: Pre-Diabetes 5.7 - 6.4 % Diabetes = or > 6.5% 9 100-125 mg/dL PRE-DIABET ES/FASTING >126 mg/dL DIABETES/FASTING 10 CHRONIC KIDNEY DISEASE STAGI NG PER NKF STAGE I & II GFR >= 60 NORMAL TO MILDLY DECREASED STAGE III GFR 30-59 MODERATELY DECREASED STAGE IV GFR 15-29 SEVERELY DECREASED STAGE V GFR <15 VERY LITTLE GFR LEFT ESRD GFR <15 ON CLOTH PRINTER HELPER Procedures Date Code Description Status 01/20/2021 30722 Office/Outpatient Established Lo w MDM 20-29 Min Completed 12/31/2020 45656 Office/Outpatient Established Mo d MDM 30-39 Min Completed 10/23/2020 87994 Chronic Care MGMT 20 Mins Clinical Staff Time Per Calendar Month Completed 10/16/2020 32100 Office/Outpatient Established Mo d MDM 30-39 Min Completed 09/03/2020 64240 Chronic Care MGMT 20 Mins Clinical Staff Time Per Calendar Month Completed 05/20/2020 [id number] Colonoscopy Completed 03/03/2017 [id number] Colonoscopy Completed 12/24/2016 [id number] Diabetic Retinal Eye Exam Comple patricia 02/27/2013 [id number] Colonoscopy Completed 08/22/2007 [id number] Colonoscopy Completed Medical Devices Description No Information Available Encounters Type Date Location Provider Dx Diagnosis Office Visit [facility] R63.4 Abnormal weight loss R10.9 Unspecified abdominal pain I10 Essential (primary) hyperten lacey E78.00 Pure hypercholesterolemia, u nspecified Z79.84 extermination inspector (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 o ral hypoglycemic drugs 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, unsp I48.21 Permanent atrial fibrillatio n Z79.01 extermination inspector (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 a nticoagulants G47.33 Obstructive sleep apnea (kike lt) (pediatric) Office Visit 12/31/2020 [facility] R10.9 Unspecified abdominal pain R63.4 Abnormal weight loss S30.861A Insect bite (nonvenomous) of abdominal wall, init encntr I10 Essential (primary) hyperten lacey E78.00 Pure hypercholesterolemia, u nspecified 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, unsp Office Visit 10/16/2020 9[facility]a [facility] ANP 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, unsp I48.21 Permanent atrial fibrillatio n Z79.01 FDC (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 a nticoagulants E78.00 Pure hypercholesterolemia, u nspecified I10 Essential (primary) hyperten lacey G47.33 Obstructive sleep apnea (kike lt) (pediatric) Z13.89 Encounter for screening for other disorder Assessments Date Code Description Provider 02/05/2021 E11.40 Type 2 diabetes steve itus with diabetic neuropathy, unspecified Connie Joseph, [place] 02/05/2021 E11.40 Type 2 diabetes steve itus [...] unspe cified Connie Joseph, ANP 01/20/2021 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.84 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 Connie Joseph, [place] 01/20/2021 E11.40 Type 2 diabetes steve itus with diabetic neuropathy, unspecified Connie Joseph, ANP 01/20/2021 I48.21 Permanent atrial fibrillation Na deysi Joseph, ANP 01/20/2021 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.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 Connie Joseph, ANP 01/20/2021 G47.33 Obstructive sleep apnea (adult) (pediatric) Connie Joseph, ANP 12/31/2020 R10.9 Unspecified abdominal pain Connie Joseph, ANP 12/31/2020 R63.4 Abnormal weight loss Connie Anderson icer, ANP 12/31/2020 S30.861A Insect bite (nonveno mous) of abdominal wall, initial encounter Connie Joseph, ANP 12/31/2020 I10 Essential (primary) hypertension Connie Joseph, ANP 12/31/2020 E78.00 Pure hypercholesterolemia, unspe cified Connie Joseph, [place] 12/31/2020 E11.40 Type 2 diabetes steve itus with diabetic neuropathy, unspecified Connie Joseph, [place] 10/23/2020 I10 Essential (primary) hypertension Ricardo Bashir MD 10/23/2020 E78.00 Pure hypercholesterolemia, unspe darshanafied Ricardo Bashir MD 10/23/2020 I48.21 Permanent atrial fibrillation Co nael Bashir MD 10/16/2020 E11.40 Type 2 diabetes steve itus with diabetic neuropathy, unspecified Connie Joseph, [place] 10/16/2020 I48.21 Permanent atrial fibrillation Na deysi Joseph, [place] 10/16/2020 Z79.01 FDC (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 antic oagulants Connie Joseph, [place] 10/16/2020 E78.00 Pure hypercholesterolemia, unspe cified Connie Joseph, [place] 10/16/2020 I10 Essential (primary) hypertension GEORGES German 10/16/2020 G47.33 Obstructive sleep apnea (adult) (pediatric) GEORGES German 10/16/2020 Z13.89 Encounter for screening for othe r disorder [place]ES German 09/03/2020 I10 Essential (primary) hypertension Ricardo Bashir MD 09/03/2020 G47.33 Obstructive sleep apnea (adult) (pediatric) Ricardo Bashir MD 09/03/2020 E78.00 Pure hypercholesterolemia, unspe cified Ricardo Bashir MD Plan of Treatment Future Appointment(s):* 05/14/2021 10:40 am - [place] German at [facility] 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
--- OUTSIDE RECORDS SUMMARY | 2021-04-30 08:57 | CCD | Continuity of Care Document ---
Author Author Nahun PERRY DO Organization Unknown Address [address] [facility] [address] [place] [address] Phone [phone] Care Team Providers Care Spring Assembler Supervisor Name Role Phone Humaira Silva JR, MD AUTM Connie Joseph AUTM [phone] Harry Eason MD AUTM [phone] Iona Oneil MD AUTM Unavailable Problems Active [...] day with food 90tabs Connie Joseph, [facility] 0 Digoxin 250mcg Tablets take [...] CPT Code Status Date Vaccine Lot # [id number] Given 04/16/2020 Influenza Vaccin e Quadrivalent Preser/Antibiotic Free Im Use [id number] 98403 Given 06/12/2019 Influenza Vaccin e Quadrivalent Preser/Antibiotic Free Im Use [id number] 27975 Given 05/05/2018 Influenza Virus Vaccine, Quadrivalent (Cciiv4), Derived From 7 Given 04/06/2017 Influenza Vaccin e Quadrivalent Preser/Antibiotic Free Im Use [id number] Q2037 Given 04/28/2016 Fluvirin Virus Vaccine 59774 01 Q2037 Given 04/09/2015 Fluvirin Virus Vaccine 84873 01 Q2037 Given 05/03/2014 Fluvirin Virus Vaccine 81743 01 09194 Given 03/18/2009 Influenza Virus Vaccine 18778 Given 06/22/2008 Pneumovax 23 33428 Given 04/15/2007 Influenza Virus Vaccine 68486 Given 05/19/2006 Influenza Virus Vaccine 12013 Given 04/11/2001 Influenza Virus Vaccine 70079 Given 05/27/1998 Influenza Virus Vaccine 86799 Given 05/25/1997 Influenza Virus Vaccine 09679 Given 06/04/1993 Influenza Virus Vaccine Vital Signs [...] H/L Range Note Laboratory test finding 02/19/[address] [address] [phone] Ferritin 253 NG/ML Normal 26-388 Serum Protein Elect W/RFX 02/19/[address] [address] [phone] Albumin % 51.5 % Low 55.8-66.1 Tcybo-3-Yhlvsirz % 7.1 % High 2.9-4.9 Tzozd-2-Pvqpybeqn % 16.4 % High 7.1-11.8 Vtsy-7-Kffaygugh % 5.5 % Normal 4.7-7.2 Ximk-4-Ogxdelglv % 5.9 % Normal 3.2-6.5 Gamma Globulin % 13.6 % Normal 11.1-18.8 Albumin 3.61 GM/DL Normal 3.29-5.55 Fgjra-6-Sbdwqheav 0.50 GM/DL High 0.17-0.41 Dtcqv-7-Sifqpxitf 1.15 GM/DL High 0.42-0.99 Qhja-9-Qdmvdpidg 0.39 GM/DL Normal 0.28-0.60 Lctu-0-Ozxklwszv 0.41 GM/DL Normal 0.19-0.55 Gamma Globulins 0.95 GM/DL Normal 0.65-1.58 Total Protein 7.0 GM/DL Normal 6.4-8.2 Spep Interpretation For RFX SEE COMMENT Normal 1 Spep Pathologist Review REV'D BY O ADJAP <SEE NOTE> Normal 2 Free Lacon & Lambda LT Chains 02/19/[address] [address] [phone] Free Lacon Light Chains Serum 26.4 mg/L High 3. 3-19.4 Free Lambda Light Chains Serum 35.4 mg/L High 5.7-26.3 Lacon/Lambda Ratio Serum 0.75 Normal 0.26-1.65 3 Immunotyping (Immunofixation) Serum (If 02/19/[address] [address] [phone] Immunotyping Serum Igg ABNORMAL High Normal Immunotyping Serum Lambda ABNORMAL High Normal It Serum Interpretation SEE COMMENT Normal 4 Its Pathologist Review REV'D BY O ADJAP <SEE NOTE> Normal 5 Complete Blood Count 02/19/2021 [facility] Gasoline Engine Inspector: [place] [address] [phone] WBC 5.6 x10*3/UL 4.1 - 10.9 6 [...] 2.0 - 7.8 Comprehensive Chem Profile 02/19/2021 [facility] Gasoline Engine Inspector: [place] [address] [phone] Glucose 111 mg/dL High 74 - 99 [...] mL/min >60 8 Ua Dipstick Only 02/19/2021 [facility] Gasoline Engine Inspector: [place] [address] [phone] Urine Color YELLOW Yellow Urine Appearance CLEAR Clear Urine PH 6.5 units 5.0 - 9.0 Urine Specific Shoshone 1.020 1.005 - 1.030 Urine Leukocytes NEGATIVE Negative Urine Blood NEGATIVE Negative Urine Protein NEGATIVE Negative -Trace Urine Glucose NEGATIVE mg/dL Negative Urine Nitrite NEGATIVE Negative Urine Ketone NEGATIVE mg/dL Negative Urine Bilirubin NEGATIVE Negative Urine Urobilinogen 0.2 mg/dL 0.2 - 1.0 Total Iron Binding Capacit 02/19/[address] [address] [phone] Iron (Fe) 39 g/dL Low 65-175 Total Iron Binding Capacity 288 g/dL Normal 250-450 Percent Saturation 13.5 % Low 19.7-50.0 Influenza A/B RSV Covid Amp 02/14/[address] [address] [phone] Influenza A Amplification NEGATIVE Normal Negati ve 9 Influenza B Amplification NEGATIVE Normal Negative 10 RSV Amplification NEGATIVE Normal Negative 11 Sars Covid-19 Amplification NEGATIVE Normal Negative 12 Basic Metabolic Profile 02/13/[address] [address] [phone] Glucose, Fasting 122 mg/dL High 70-100 Blood [...] 8.8-10.2 Ua W/ Reflex To Culture 02/13/[address] [address] [phone] Appearance, Urine RFX HAZY Normal Clear Color, Urine RFX YELLOW Normal Yellow PH,Urine RFX 5.0 units Normal 5.0-9.0 Specific Shoshone Ur Auto RFX 1.017 Normal 1.002-1.035 Protein, [...] /LPF Normal 0-1 Laboratory test finding 02/13/2021 [facility] [address] [place] [address] [phone] Osmolality Serum 271 MOSM/KG Low 280-301 Ethyl Alcohol (Ethanol) < 0.003 % Normal 0.000-0.010 Thyroid Stimulating Hormone 2.530 uIU/ML Normal 0.358-3.740 Free T4 1.06 ng/dL Normal 0.76-1.46 Digoxin Level 1.2 NG/ML Normal 0.5-2.0 Acetone Level 02/13/2021 [facility] [address] [place] [address] [phone] Acetone/Ketone 2.52 mg/dL Normal <2.81 Cardiac Marker Panel 02/13/2021 [facility] [address] [place] [address] [phone] CPK Creatine Phosphokinase 192 U/L Normal 39-30 8 CK-MB Value Mass 1.1 NG/ML Normal <3.6 MB/CK Relative Index 0.57 Normal < Or =4 14 Troponin I 0.02 NG/ML Normal < 0.10 15 Prothrombin Time/Inr 02/13/2021 [facility] [address] [place] [address] [phone] Prothrombin Time 25.2 seconds High 12.7-14.5 Inr 2.24 Normal 16 Hemoglobin A1c 02/13/2021 [facility] [address] [place] [address] [phone] Hemoglobin A1c 5.7 % Normal 17 Estimated Average Glucose 117 mg/dL High 60-110 CBC With Differential 02/13/2021 [address] [place] [address] [phone] White Blood Count 6.6 10 Normal 4.0-10.0 [...] 36.0-66.0 Lymph % 11.4 % Low 24.0-44.0 Isabella % 15.0 % High 2.0-8.0 Eos % 0.2 % Normal 0.0-3.0 Baso % 0.5 % Normal 0.0-1.0 Immature Granulocyte % 1.1 % Normal 0-3.0 Nucleated Red Blood Cell % 0.0 % Normal 0-0 Neutrophils # 4.7 10 Normal 1.5-8.5 Lymph # 0.8 10 Low 1.5-5.0 Isabella # 1.0 10 High 0.0-0.8 Eos # 0.0 10 Normal 0.0-0.5 Baso # 0.0 10 Normal 0.0-0.2 Laboratory test finding 02/13/[address] [address] [phone] Bedside Glucose 123 mg/dL High 83-110 Laboratory test finding 02/13/[address] [address] [phone] Partial Thromboplastin Time 55.6 seconds High 25 .9-37.0 Lactic Acid Sepsis Protocol 1.2 mmol/L Normal 0.4-2.0 18 Basic Metabolic Panel 02/05/2021 [facility] Gasoline Engine Inspector: Dr Ricardo Perry [place], [place] [id number] [phone] Glucose 132 mg/dL High 74 - 99 [...] >= 60 mL/min >60 20 A1c 02/05/2021 [facility] Gasoline Engine Inspector: Dr Ricardo Perry [place], [place] [id number] [phone] Hba1c 5.6 % <5.7 21 Est Avg Glucose 114 mg/dL High 60 - 110 Microalbumin/Creatinine Urine 02/05/2021 [facility] Gasoline Engine Inspector: Dr Ricardo Perry [place], [place] [address] [phone] Microalbumin Urine 6.1 mg/L 1.3 - 20.0 Urine Creatinine 121.2 mg/dL 30.0 - 125.0 Microalb/Creat Ratio 5.0 ug/mg 0.0 - 30.0 Laboratory test finding 12/31/2020 [facility] [address] [place] [address] [phone] Lipase 223 U/L Normal 73-393 Comprehensive Chem Profile 12/31/2020 [facility] Gasoline Engine Inspector: [place] [address] [phone] Glucose 98 mg/dL 74 - 99 22 [...] mL/min >60 23 Complete Blood Count 12/31/2020 [facility] Gasoline Engine Inspector: [place] [address] [phone] WBC 5.2 x10*3/UL 4.1 - 10.9 RBC [...] 2.0 - 7.8 Laboratory test finding 12/31/[address] [address] [phone] Digoxin Level 1.2 NG/ML Normal 0.5-2.0 Lyme Disease SCRN With Confirm 12/31/[address] [address] [phone] Lyme Disease IgG/IgM Antibodie <0.91 ISR Normal 0 .00-0.90 24 Lyme Disease IgM Ab Quantitati <0.80 index Normal 0.00-0.79 25 Complete Blood Count 10/16/2020 [facility] Gasoline Engine Inspector: [place] [address] [phone] WBC 5.0 x10*3/UL 4.1 - 10.9 RBC [...] 3.9 x10*3/UL 2.0 - 7.8 A1c 10/16/2020 [facility] Gasoline Engine Inspector: [place] [address] [phone] Hba1c 5.9 % High <5.7 26 Est Avg Glucose 123 mg/dL High 60 - 110 Comprehensive Chem Profile 10/16/2020 [facility] Gasoline Engine Inspector: [place] [address] [phone] Glucose 120 mg/dL High 74 - 99 [...] 60 mL/min >60 28 Lipid Profile 10/16/2020 [facility] Gasoline Engine Inspector: Dr Ricardo Perry [place], [place] [address] [phone] Cholesterol 85 mg/dL Low 131 - 200 Triglycerides 155 mg/dL High 30 - 150 HDL Cholesterol 37 mg/dL 35 - 60 LDL (Calculated) INVALID CALC 50 - 159 1 A SERUM IMMUNOTYPE HAS BEEN REFLEX ADDED TO THIS SPECIMEN. M-SPIKE NOTED IN LATE GAMMA REGION. CONCENTRATION = 0.32 GM/DL 2 REV'D BY Nola VICTORIA 3 Performed at: RN - [facility] [address] [id number] Gasoline Engine Inspector: Alvina Puckett MD, Phone: [phone] 4 MONOCLONAL IGG LAMBDA 5 REV'D BY [...] LITTLE GFR LEFT ESRD GFR <15 ON MAINTENANCE JOB TITLES 9 Negative results do not prec lude [...] pathogens. DISCLAIMER: Testing was performed using the [employer] SARS-CoV-2 test. This test was developed and its performance characteristics determined by [employer]. This test has not been FDA cleared [...] Little GFR Left ESRD GFR <15 on MAINTENANCE JOB TITLES 14 DIAGNOSIS CRITERIA MMB ng/ml Relative Index (RI) NON-AMI < or = 5 N/A LAWSON ZONE > 5 < or = 4 AMI > 5 > 4 15 Troponin I Reference Interva l for Siemens [place] LOCI: 99th Percentile= 0.00-0.045 ng/ml Risk Stratification: [...] LITTLE GFR LEFT ESRD GFR <15 ON MAINTENANCE JOB TITLES 21 Lab Result Notes: Pre-Diabetes 5.7 - [...] LITTLE GFR LEFT ESRD GFR <15 ON MAINTENANCE JOB TITLES 24 Negative <0.91 Equivocal 0.91 - 1.09 Positive >1.09 25 Negative <0.80 Equivocal 0.80 - 1.19 Positive >1.19 . IgM levels may peak at 3-6 weeks post infection, then gradually decline. Performed at: RN - [facility] [address] [id number] Gasoline Engine Inspector: Alvina Puckett MD, Phone: [phone] Lab Result Notes: Pre-Diabetes 5.7 - [...] LITTLE GFR LEFT ESRD GFR <15 ON MAINTENANCE JOB TITLES Procedures Date Code Description Status 01/20/2021 16209 Office/Outpatient Established Lo w MDM 20-29 Min Completed 12/31/2020 71349 Office/Outpatient Established Mo d MDM 30-39 Min Completed 12/19/2020 06425 Chronic Care MGMT 20 Mins Clinical Staff Time Per Calendar Month Completed 10/23/2020 41177 Chronic Care MGMT 20 Mins Clinical Staff Time Per Calendar Month Completed 10/16/2020 75272 Office/Outpatient Established Mo d MDM 30-39 Min Completed 09/03/2020 88899 Chronic Care MGMT 20 Mins Clinical Staff Time Per Calendar Month Completed 05/20/2020 [id number] Colonoscopy Completed 03/03/2017 [id number] Colonoscopy Completed 12/24/2016 [id number] Diabetic Retinal Eye Exam Comple patricia 02/27/2013 [id number] Colonoscopy Completed 08/22/2007 [id number] Colonoscopy Completed Medical Devices Description No Information Available Encounters Type Date Location Provider Dx Diagnosis Office Visit [facility] R[facility]4 Abnormal weight loss R10.9 Unspecified abdominal pain I10 Essential (primary) hyperten lacey E78.00 Pure hypercholesterolemia, u nspecified Z79.84 exterminator helper termite (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 o ral hypoglycemic drugs 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, unsp I48.21 Permanent atrial fibrillatio n Z79.01 exterminator helper termite (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 a nticoagulants E78.00 Pure hypercholesterolemia, u nspecified I10 Essential (primary) hyperten lacey G47.33 Obstructive sleep apnea (kike lt) (pediatric) Z13.89 Encounter for screening for other disorder Assessments Date Code Description Provider 02/19/2021 I10 Essential (primary) hypertension Rowdy Perry, 02/19/2021 I48.21 Permanent atrial fibrillation Ch alexia Perry DO 02/19/2021 Z79.01 residential (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 antic oagulants Jbdirkmonika Perry, [...] unspe cified Connie Joseph, ANP 01/20/2021 Z79.84 residential (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 oral hypoglycemic drugs Conine Joseph, ANP 01/20/2021 E11.40 Type 2 diabetes steve itus with diabetic neuropathy, unspecified Connie Joseph, ANP 01/20/2021 I48.21 Permanent atrial fibrillation Na deysi Joseph, ANP 01/20/2021 Z79.01 exterminator helper termite (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 antic oagulants Connie Joseph, [...] atrial fibrillation Esther Joseph, [place] 10/16/2020 Z79.01 residential (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 antic oagulants Connie Joseph, [...] 05/14/2021 10:40 am - [place] German at [facility] 02/19/2021 - Rowdy Perry DO* [...] for now and monitor closely. * Z79.01 residential (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 anticoagulants * E11.40 Type [...] FOR SCREENING EGD/COLONOSCOPY Sander hernández Notified 03/11/[address] [place] [address] [phone]
--- OUTSIDE RECORDS SUMMARY | 2021-04-30 08:57 | CCD | Continuity of Care Document ---
Author Author Lab Schedule, Nahun P Organization Unknown Address [address] [address] Phone Unavailable Care Team Providers Care Vector Control Specialist Name Role Phone Humaira Silva JR, MD AUTM Connie Joseph AUTM [phone] Harry Eason MD AUTM [phone] Iona Oneil MD AUTM Unavailable Problems Active [...] 1 by mouth every day Connie Joseph, [facility] 05/30/2018 Areds2 1 Daily Connie Joseph, [place] [...] by mouth every day 90caps Connie Joseph, [facility] Xarelto 20mg Tablets take one tablet by mouth every day with food 90tabs Connie Joseph, [facility] 0 Digoxin 250mcg Tablets take [...] CPT Code Status Date Vaccine Lot # [id number] Given 04/16/2020 Influenza Vaccin e Quadrivalent Preser/Antibiotic Free Im Use [id number] 03281 Given 06/12/2019 Influenza Vaccin e Quadrivalent Preser/Antibiotic Free Im Use 629355 59522 Given 05/05/2018 Influenza Virus Vaccine, Quadrivalent (Cciiv4), Derived From 7 Given 04/06/2017 Influenza Vaccin e Quadrivalent Preser/Antibiotic Free Im Use [id number] Q2037 Given 04/28/2016 Fluvirin Virus Vaccine 43020 01 Q2037 Given 04/09/2015 Fluvirin Virus Vaccine 31367 01 Q2037 Given 05/03/2014 Fluvirin Virus Vaccine 28929 01 24686 Given 03/18/2009 Influenza Virus Vaccine 79281 Given 06/22/2008 Pneumovax 23 44202 Given 04/15/2007 Influenza Virus Vaccine 07192 Given 05/19/2006 Influenza Virus Vaccine 81914 Given 04/11/2001 Influenza Virus Vaccine 42233 Given 05/27/1998 Influenza Virus Vaccine 63191 Given 05/25/1997 Influenza Virus Vaccine 06426 Given 06/04/1993 Influenza Virus Vaccine Vital Signs [...] H/L Range Note Basic Metabolic Panel 02/05/2021 [facility] Manager Contact: [place] [address] [phone] Glucose 132 mg/dL High 74 - 99 [...] >= 60 mL/min >60 2 A1c 02/05/2021 [facility] , Manager Contact: [place] [address] [phone] Hba1c 5.6 % <5.7 3 Est Avg Glucose 114 mg/dL High 60 - 110 Microalbumin/Creatinine Urine 02/05/2021 [facility] Manager Contact: [place] [address] [phone] Microalbumin Urine 6.1 mg/L 1.3 - 20.0 Urine Creatinine 121.2 mg/dL 30.0 - 125.0 Microalb/Creat Ratio 5.0 ug/mg 0.0 - 30.0 Laboratory test finding 12/31/[address] [address] [phone] Lipase 223 U/L Normal 73-393 Lyme Disease SCRN With Confirm 12/31/[address] [address] [phone] Lyme Disease IgG/IgM Antibodie <0.91 ISR Normal 0 .00-0.90 4 Lyme Disease IgM Ab Quantitati <0.80 index Normal 0.00-0.79 5 Laboratory test finding 12/31/[address] [address] [phone] Digoxin Level 1.2 NG/ML Normal 0.5-2.0 Complete Blood Count 12/31/2020 [facility] Manager Contact: [place] [address] [phone] WBC 5.2 x10*3/UL 4.1 - 10.9 RBC [...] 2.0 - 7.8 Comprehensive Chem Profile 12/31/2020 [facility] Manager Contact: [place] [address] [phone] Glucose 98 mg/dL 74 - 99 6 [...] mL/min >60 7 Complete Blood Count 10/16/2020 [facility] Manager Contact: Dr Ric[place] [address] [phone] WBC 5.0 x10*3/UL 4.1 - 10.9 RBC [...] 3.9 x10*3/UL 2.0 - 7.8 A1c 10/16/2020 [facility] Manager Contact: Dr Ricardo [place] [address] [phone] Hba1c 5.9 % High <5.7 8 Est Avg Glucose 123 mg/dL High 60 - 110 Comprehensive Chem Profile 10/16/2020 [facility] Manager Contact: Dr Ricardo [place] [address] [phone] Glucose 120 mg/dL High 74 - 99 [...] 60 mL/min >60 10 Lipid Profile 10/16/2020 [facility] Manager Contact: [place] [address] [phone] Cholesterol 85 mg/dL Low 131 - 200 [...] LITTLE GFR LEFT ESRD GFR <15 ON STRUCTURAL STEEL FITTER 3 Lab Result Notes: Pre-Diabetes 5.7 - 6.4 % Diabetes = or > 6.5% 4 Negative <0.91 Equivocal 0.91 - 1.09 Positive >1.09 5 Negative <0.80 Equivocal 0.80 - 1.19 Positive >1.19 . IgM levels may peak at 3-6 weeks post infection, then gradually decline. Performed at: RN - [facility] [address] [id number] Manager Contact: Alvina Puckett MD, Phone: [phone] 100-125 mg/dL PRE-DIABET ES/FASTING >126 mg/dL DIABETES/FASTING 7 CHRONIC KIDNEY DISEASE STAGI NG PER NKF STAGE I & II GFR >= 60 NORMAL TO MILDLY DECREASED STAGE III GFR 30-59 MODERATELY DECREASED STAGE IV GFR 15-29 SEVERELY DECREASED STAGE V GFR <15 VERY LITTLE GFR LEFT ESRD GFR <15 ON STRUCTURAL STEEL FITTER 8 Lab Result Notes: Pre-Diabetes 5.7 - [...] LITTLE GFR LEFT ESRD GFR <15 ON STRUCTURAL STEEL FITTER Procedures Date Code Description Status 01/20/2021 68814 Office/Outpatient Established Lo w MDM 20-29 Min Completed 12/31/2020 93094 Office/Outpatient Established Mo d MDM 30-39 Min Completed 10/23/2020 62568 Chronic Care MGMT 20 Mins Clinical Staff Time Per Calendar Month Completed 10/16/2020 45593 Office/Outpatient Established Mo d MDM 30-39 Min Completed 09/03/2020 59583 Chronic Care MGMT 20 Mins Clinical Staff Time Per Calendar Month Completed 05/20/2020 [id number] Colonoscopy Completed 03/03/2017 [id number] Colonoscopy Completed 12/24/2016 [id number] Diabetic Retinal Eye Exam Comple patricia 02/27/2013 [id number] Colonoscopy Completed 08/22/2007 [id number] Colonoscopy Completed Medical Devices Description No Information Available Encounters Type Date Location Provider Dx Diagnosis Office Visit 01/20/2021 [facility] R63[facility]4 Abnormal weight loss R10.9 Unspecified abdominal pain I10 Essential (primary) hyperten lacey E78.00 Pure hypercholesterolemia, u nspecified Z79.84 underwriting operations manager (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 o ral hypoglycemic drugs 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, unsp I48.21 Permanent atrial fibrillatio n Z79.01 underwriting operations manager (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 a nticoagulants G47.33 Obstructive sleep apnea (kike lt) (pediatric) Office Visit 12/31/2020 10:20a [facility] R10.9 Unspecified abdominal pain R63.4 Abnormal weight loss S30.861A Insect bite (nonvenomous) of abdominal wall, init encntr I10 Essential (primary) hyperten lacey E78.00 Pure hypercholesterolemia, u nspecified 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, unsp Office Visit 10/16/2020 9:20a [facility] walters ANP 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, unsp I48.21 Permanent atrial fibrillatio n Z79.01 residential (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 a nticoagulants E78.00 Pure hypercholesterolemia, u nspecified I10 Essential (primary) hyperten lacey G47.33 Obstructive sleep apnea (kike lt) (pediatric) Z13.89 Encounter for screening for other disorder Assessments Date Code Description Provider 01/20/2021 R63.4 Abnormal weight loss Connie Anderson icer, ANP 01/20/2021 R10.9 Unspecified abdominal pain Connie Joseph, ANP 01/20/2021 I10 Essential (primary) hypertension Connie Joseph, ANP 01/20/2021 E78.00 Pure hypercholesterolemia, unspe cified Connie Joseph, ANP 01/20/2021 Z79.84 residential (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 oral hypoglycemic drugs Connie Joseph, ANP 01/20/2021 E11.40 Type 2 diabetes steve itus with diabetic neuropathy, unspecified Connie Joseph, ANP 01/20/2021 I48.21 Permanent atrial fibrillation Na deysi Joseph, ANP 01/20/2021 Z79.01 residential (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 antic oagulants [...] Pure hypercholesterolemia, unspe cified Connie Joseph, ANP 12/31/2020 E11.40 Type 2 diabetes steve itus with diabetic neuropathy, unspecified Connie Joseph, ANP 10/23/2020 I10 Essential (primary) hypertension Ricardo Bashir MD 10/23/2020 E78.00 Pure hypercholesterolemia, unspe cified Ricardo Bashir MD 10/23/2020 I48.21 Permanent atrial fibrillation Co nael Bashir MD 10/16/2020 E11.40 Type 2 diabetes steve itus with diabetic neuropathy, unspecified [place] German 10/16/2020 I48.21 Permanent atrial fibrillation Na [place] 10/16/2020 Z79.01 underwriting operations manager (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 antic oagulants [place] 10/16/2020 E78.00 Pure hypercholesterolemia, unspe cified [place] German 10/16/2020 I10 Essential (primary) hypertension [place] German [...] 05/14/2021 10:40 am - [place] [facility] at [facility] 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.84 residential (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 oral hypoglycemic drugs * E11.40 Type 2 diabetes mellitus with diabetic neuropathy, unspecified * I48.21 Permanent atrial fibrillation * Z79.01 underwriting operations manager (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 anticoagulants * G47.33 Obstructive sleep apnea (adult) (pediatric) * All * New Medication:* Famotidine 40 mg - 1 by mouth every day Functional Status Description No Information Available Mental Status Description No Information Available Referrals Refer to Dr Reason for Referral Status Appt Date Vickey Muse MD CONSULT FOR SCREENING EGD/COLONOSCOPY Sander hernández Notified 03/11/2021 [address] [address] [phone]
--- OUTSIDE RECORDS SUMMARY | 2021-04-30 08:57 | CCD | Continuity of Care Document ---
Author Organization Unknown Address Unknown Phone Unavailable Care Team Providers Care Air Conditioning Engineer Name Role Phone Humaira Silva JR, MD AUTM [phone] Connie Joseph AUTM [phone] Harry Eason MD AUTM [phone] Iona Oneil MD AUTM Unavailable Problems Active [...] 1500Com Capsules 1 by mouth every day [place] German 05/30/2018 Areds2 1 Daily Connie Joseph, [facility] 11/20 Nitrostat 0.4mg Tablets Sub one under tongue every 5 minutes x 3 as needed for chest discomfort 25tabs Connie Joseph, [place] 12/08/2017 Mens Multi Vitamin & Mineral Formula Tablets Connie Joseph, [facility] 017 Aspirin 81mg Tablets 1 po qd 30tabs Vijaya Edmonds, [facility] 11/29/2008 Vitamin D3 High Potency 1000Unit C apsules 1 by mouth every day Unknown Metoprolol Succinate ER 50mg Tablets ER 24HR take 1 tablet by mouth once daily 90tabs Connie Joseph, ANP Diltiazem HCL ER 180mg Caps ER 24H R 1 by mouth every day 90caps Connie Joseph, ANP Xarelto 20mg Tablets take [...] 05/03 Administration Of Flu Vaccine Inj ection Alejandro EdmondsO. 03/18 Administration Of Flu Vaccine Inj ection Aurelia Matamoros D.O. 04/15 Administration Of Flu Vaccine Inj ection Alejandro EdmondsO. 05/19 Administration Of Flu Vaccine Inj ection Alejandro EdmondsO. 04/11 Immunizations CPT Code Status Date Vaccine Lot # [id number] Given 04/16/2020 Influenza Vaccin e Quadrivalent Preser/Antibiotic Free Im Use [id number] 01039 Given 06/12/2019 Influenza Vaccin e Quadrivalent Preser/Antibiotic Free Im Use [id number] 09723 Given 05/05/2018 Influenza Virus Vaccine, Quadrivalent ([id number]), Derived From 8 Given 04/06/2017 Influenza Vaccin e Quadrivalent Preser/Antibiotic Free Im Use [id number] Given 04/28/2016 Fluvirin Virus Vaccine [id number] 01 Q2037 Given 04/09/2015 Fluvirin Virus Vaccine 59946 01 [id number] Given 05/03/2014 Fluvirin Virus Vaccine 21457 01 12149 Given 03/18/2009 Influenza Virus Vaccine 13846 Given 06/22/2008 Pneumovax 23 27033 Given 04/15/2007 Influenza Virus Vaccine 93908 Given 05/19/2006 Influenza Virus Vaccine 64398 Given 04/11/2001 Influenza Virus Vaccine 01913 Given 05/27/1998 Influenza Virus Vaccine 90086 Given 05/25/1997 Influenza Virus Vaccine 89066 Given 06/04/1993 Influenza Virus Vaccine Vital Signs [...] Date Facility Test Result H/L Range Note Influenza A/B RSV Covid Amp 02/14/2021 [facility] [address] [place] [address] [phone] Influenza A Amplification NEGATIVE Normal Negati ve 1 Influenza B Amplification NEGATIVE Normal Negative 2 RSV Amplification NEGATIVE Normal Negative 3 Sars Covid-19 Amplification NEGATIVE Normal Negative 4 Laboratory test finding 02/13/2021 [facility] [address] [place] [address] [phone] Bedside Glucose 123 mg/dL High 83-110 CBC With Differential 02/13/2021 [facility] [address] [place] [address] [phone] White Blood Count 6.6 10 Normal 4.0-10.0 [...] 36.0-66.0 Lymph % 11.4 % Low 24.0-44.0 [place] % 15.0 % High 2.0-8.0 Eos % 0.2 % Normal 0.0-3.0 Baso % 0.5 % Normal 0.0-1.0 Immature Granulocyte % 1.1 % Normal 0-3.0 Nucleated Red Blood Cell % 0.0 % Normal 0-0 Neutrophils # 4.7 10 Normal 1.5-8.5 Lymph # 0.8 10 Low 1.5-5.0 [place] # 1.0 10 High 0.0-0.8 Eos # 0.0 10 Normal 0.0-0.5 Baso # 0.0 10 Normal 0.0-0.2 Hemoglobin A1c 02/13/2021 [facility] nter [address] [place] [address] [phone] Hemoglobin A1c 5.7 % Normal 5 Estimated Average Glucose 117 mg/dL High 60-110 Prothrombin Time/Inr 02/13/2021 [facility] enter [address] [place] [address] [phone] Prothrombin Time 25.2 seconds High 12.7-14.5 Inr 2.24 Normal 6 Laboratory test finding 02/13/2021 [facility] [address] [place] [address] [phone] Partial Thromboplastin Time 55.6 seconds High 25 .9-37.0 Lactic Acid Sepsis Protocol 1.2 mmol/L Normal 0.4-2.0 7 Cardiac Marker Panel 02/13/2021 [facility] enter [address] [place] [address] [phone] CPK Creatine Phosphokinase 192 U/L Normal 39-30 8 CK-MB Value Mass 1.1 NG/ML Normal <3.6 MB/CK Relative Index 0.57 Normal < Or =4 8 Troponin I 0.02 NG/ML Normal < 0.10 9 Basic Metabolic Profile 02/13/[address] [address] [phone] Glucose, Fasting 122 mg/dL High 70-100 Blood Urea Nitrogen 15 mg/dL Normal 7-18 Creatinine For GFR 0.90 mg/dL Normal 0.70-1.30 Glomerular Filtration Rate > 60.0 Normal >35 1 0 Sodium Level 135 mEq/L Low 136-145 Potassium Serum 4.1 mEq/L Normal 3.5-5.1 Chloride Level 102 mEq/L Normal 98-107 Carbon Dioxide Level 25 mEq/L Normal 21-32 Anion Gap 8 mEq/L Normal 8-16 Calcium Level 8.2 mg/dL Low 8.8-10.2 Acetone Level 02/13/2021 [facility] nter [address] [place] [address] [phone] Acetone/Ketone 2.52 mg/dL Normal <2.81 Laboratory test finding 02/13/[address] [address] [phone] Osmolality Serum 271 MOSM/KG Low 280-301 Ethyl Alcohol (Ethanol) < 0.003 % Normal 0.000-0.010 Thyroid Stimulating Hormone 2.530 uIU/ML Normal 0.358-3.740 Free T4 1.06 ng/dL Normal 0.76-1.46 Digoxin Level 1.2 NG/ML Normal 0.5-2.0 Ua W/ Reflex To Culture 02/13/2021 [facility] [address] [place], [place] [address] [phone] Appearance, Urine RFX HAZY Normal Clear Color, Urine RFX YELLOW Normal Yellow PH,Urine RFX 5.0 units Normal 5.0-9.0 Specific [place] Ur Auto RFX 1.017 Normal 1.002-1.035 Protein, [...] Urine Auto RFX 0 /LPF Normal 0-1 Basic Metabolic Panel 02/05/2021 [facility] Dormitory Keeper: Dr Ricardo Bashir [place], [place] [id number] [phone] Glucose 132 mg/dL High 74 - 99 11 BUN 9 mg/dL 7 - 18 Creatinine 0.9 mg/dL 0.6 - 1.3 Sodium 138 mEq/L 136 - 145 Potassium 4.2 mEq/L 3.5 - 5.1 Chloride 103 mEq/L 98 - 107 Carbon Dioxide 29 mEq/L 21 - 32 Calcium 9.6 mg/dL 8.5 - 10.1 GFR >= 60 mL/min >60 GFR >= 60 mL/min >60 12 Microalbumin/Creatinine Urine 02/05/2021 [facility], Dormitory Keeper: [place] [address] [phone] Microalbumin Urine 6.1 mg/L 1.3 - 20.0 Urine Creatinine 121.2 mg/dL 30.0 - 125.0 Microalb/Creat Ratio 5.0 ug/mg 0.0 - 30.0 A1c 02/05/2021 [facility] Dormitory Keeper: [place] [address] [phone] Hba1c 5.6 % <5.7 13 Est Avg Glucose 114 mg/dL High 60 - 110 Laboratory test finding 12/31/[address] [address] [phone] Lipase 223 U/L Normal 73-393 Lyme Disease SCRN With Confirm 12/31/[address] [address] [phone] Lyme Disease IgG/IgM Antibodie <0.91 ISR Normal 0 .00-0.90 14 Lyme Disease IgM Ab Quantitati <0.80 index Normal 0.00-0.79 15 Laboratory test finding 12/31/[address] [address] [phone] Digoxin Level 1.2 NG/ML Normal 0.5-2.0 Complete Blood Count 12/31/2020 [facility] Dormitory Keeper: [place] [address] [phone] WBC 5.2 x10*3/UL 4.1 - 10.9 RBC [...] 2.0 - 7.8 Comprehensive Chem Profile 12/31/2020 [facility] Dormitory Keeper: [place] [address] [phone] Glucose 98 mg/dL 74 - 99 16 BUN 12 mg/dL 7 - 18 Creatinine [...] mL/min >60 GFR >= 60 mL/min >60 17 Complete Blood Count 10/16/2020 [facility] Dormitory Keeper: [place] [address] [phone] WBC 5.0 x10*3/UL 4.1 - 10.9 RBC [...] 3.9 x10*3/UL 2.0 - 7.8 A1c 10/16/2020 [facility] , Dormitory Keeper: [place] [address] [phone] Hba1c 5.9 % High <5.7 18 Est Avg Glucose 123 mg/dL High 60 - 110 Comprehensive Chem Profile 10/16/2020 [facility] Dormitory Keeper: [place] [address] [phone] Glucose 120 mg/dL High 74 - 99 19 BUN 13 mg/dL 7 - 18 Creatinine [...] >60 GFR >= 60 mL/min >60 20 Lipid Profile 10/16/2020 [facility] , Dormitory Keeper: [place] [address] [phone] Cholesterol 85 mg/dL Low 131 - 200 Triglycerides 155 mg/dL High 30 - 150 HDL Cholesterol 37 mg/dL 35 - 60 LDL (Calculated) INVALID CALC 50 - 159 1 Negative results do not prec lude influenza or RSV virus infection and should not be used as the sole basis for treatment or other patient management decisions. 2 Negative results do not prec lude influenza or RSV virus infection and should not be used as the sole basis for treatment or other patient management decisions. 3 Negative results do not prec lude influenza or RSV virus infection and should not be used as the sole basis for treatment or other patient management decisions. 4 A false negative result may occur if [...] pathogens. DISCLAIMER: Testing was performed using the [employer] SARS-CoV-2 test. This test was developed and its performance characteristics determined by [employer]. This test has not been FDA cleared [...] the authorization is terminated or revoked sooner. 5 REFERENCE RANGES: <=5.6% NORMAL 5.7-6.4% SUGGESTS IMPAIRED GLUCOSE META BOLISM/PREDIABETIC >= 6.5% ABNORMAL 6 THERAPUTIC HUMAN INR VALUES INDICATIONS NORMAL RANGES PROPHYLAXIS/TREATMENT OF: VENOUS THROMBOSIS 2.0-3.0 PULMONARY EMBOLISM 2.0-3.0 PREVENTION OF SYSTEMIC EMBOLISM FROM: TISSUE HEART VALVES 2.0-3.0 ACUTE MYOCARDIAL INFARCTION 2.0-3.0 VALVULAR HEART DISEASE 2.0-3.0 ATRIAL FIBRILLATION 2.0-3.0 MECHANICAL VALVES(HIGH RISK) 2.5-3.5 RECURRENT MYOCARDIAL INFARCTION 2.5-3.5 7 Y/N query for Sepsis Lactate Rule: Y 8 DIAGNOSIS CRITERIA MMB ng/ml Relative Index (RI) NON-AMI < or = 5 N/A LAWSON ZONE > 5 < or = 4 AMI > 5 > 4 9 Troponin I Reference Interva l for [employer] LOCI: 99th Percentile= 0.00-0.045 ng/ml Risk Stratification: <= 0.10 ng/ml Decreased Risk for Adverse Clinical Events. 0.10-1.50 ng/ml Increased Risk for Adv erse Clinical Events. Evaluation of additional criterion and/or repeat testing in 2-6 hours is suggested to rule out myocardial damage. >= 1.50 ng/ml Indicative of Myocardial Injury. 10 Units are mL/min/1.73 m2 Chronic Kidney Disease Staging per NKF: Stage I & II GFR >=60 Normal to Mildly Decreased Stage III GFR 30-59 Moderately Decreased Stage IV GFR 15-29 Severely Decreased Stage V GFR <15 Very Little GFR Left ESRD GFR <15 on FAST FOOD ASSISTANT [employer]AURANT MANAGER 11 100-125 mg/dL PRE-DIABET ES/FASTING >126 mg/dL DIABETES/FASTING 12 CHRONIC KIDNEY DISEASE STAGI NG PER NKF STAGE I & II GFR >= 60 NORMAL TO MILDLY DECREASED STAGE III GFR 30-59 MODERATELY DECREASED STAGE IV GFR 15-29 SEVERELY DECREASED STAGE V GFR <15 VERY LITTLE GFR LEFT ESRD GFR <15 ON FAST FOOD ASSISTANT RESTAURANT MANAGER 13 Lab Result Notes: Pre-Diabetes 5.7 - 6.4 % Diabetes = or > 6.5% 14 Negative <0.91 Equivocal 0.91 - 1.09 Positive >1.09 15 Negative <0.80 Equivocal 0.80 - 1.19 Positive >1.19 . IgM levels may peak at 3-6 weeks post infection, then gradually decline. Performed at: RN - [facility] [address] [id number] Dormitory Keeper: Alvina Puckett MD, Phone: [phone] 16 100-125 mg/dL PRE-DIABET ES/FASTING >126 mg/dL DIABETES/FASTING 17 CHRONIC KIDNEY DISEASE STAGI NG PER NKF STAGE I & II GFR >= 60 NORMAL TO MILDLY DECREASED STAGE III GFR 30-59 MODERATELY DECREASED STAGE IV GFR 15-29 SEVERELY DECREASED STAGE V GFR <15 VERY LITTLE GFR LEFT ESRD GFR <15 ON FAST FOOD ASSISTANT RESTAURANT MANAGER 18 Lab Result Notes: Pre-Diabetes 5.7 - 6.4 % Diabetes = or > 6.5% 19 100-125 mg/dL PRE-DIABET ES/FASTING >126 mg/dL DIABETES/FASTING 20 CHRONIC KIDNEY DISEASE STAGI NG PER NKF STAGE I & II GFR >= 60 NORMAL TO MILDLY DECREASED STAGE III GFR 30-59 MODERATELY DECREASED STAGE IV GFR 15-29 SEVERELY DECREASED STAGE V GFR <15 VERY LITTLE GFR LEFT ESRD GFR <15 ON FAST FOOD ASSISTANT RESTAURANT MANAGER Procedures Date Code Description Status 01/20/2021 59310 Office/Outpatient Established Lo w MDM 20-29 Min Completed 12/31/2020 00881 Office/Outpatient Established Mo d MDM 30-39 Min Completed 12/19/2020 87287 Chronic Care MGMT 20 Mins Clinical Staff Time Per Calendar Month Completed 10/23/2020 02541 Chronic Care MGMT 20 Mins Clinical Staff Time Per Calendar Month Completed 10/16/2020 75593 Office/Outpatient Established Mo d MDM 30-39 Min Completed 09/03/2020 77919 Chronic Care MGMT 20 Mins Clinical Staff Time Per Calendar Month Completed 05/20/2020 [id number] Colonoscopy Completed 03/03/2017 [id number] Colonoscopy Completed 12/24/2016 [id number] Diabetic Retinal Eye Exam Comple patricia 02/27/2013 [id number] Colonoscopy Completed 08/22/2007 [id number] Colonoscopy Completed Medical Devices Description No Information Available Encounters Type Date Location Provider Dx Diagnosis [facility]4 Abnormal weight loss R10.9 Unspecified abdominal pain I10 Essential (primary) hyperten lacey E78.00 Pure hypercholesterolemia, u nspecified Z79.84 metal base blocker (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 o ral hypoglycemic drugs 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, unsp I48.21 Permanent atrial fibrillatio n Z79.01 metal base blocker (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 a nticoagulants G47.33 Obstructive sleep apnea (kike lt) (pediatric) Office Visit 12/31/2020 [facility] R10[facility]9 Unspecified abdominal pain R63.4 Abnormal weight loss S30.861A Insect bite (nonvenomous) of abdominal wall, init encntr I10 Essential (primary) hyperten lacey E78.00 Pure hypercholesterolemia, u nspecified 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, unsp Office Visit 10/16/2020 9[facility] ANP 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, unsp I48.21 Permanent atrial fibrillatio n Z79.01 metal base blocker (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 a nticoagulants E78.00 Pure [...] unspe cified Connie Joseph, ANP 01/20/2021 Z79.84 correction (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 oral hypoglycemic drugs Connie Joseph, [place] 01/20/2021 E11.40 Type 2 diabetes steve itus with diabetic neuropathy, unspecified Connie Joseph, ANP 01/20/2021 I48.21 Permanent atrial fibrillation Na deysi Joseph, ANP 01/20/2021 Z79.01 correction (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 antic oagulants Connie Joseph, ANP 01/20/2021 G47.33 Obstructive sleep apnea (adult) (pediatric) Connie Joseph, ANP 12/31/2020 R10.9 Unspecified abdominal pain Connie Joseph, ANP 12/31/2020 R63.4 Abnormal weight loss Connie Anderson icer, ANP 12/31/2020 S30.861A Insect bite (nonveno mous) of abdominal wall, initial encounter Connie Joseph, [place] 12/31/2020 I10 Essential (primary) hypertension Connie Joseph, ANP 12/31/2020 E78.00 Pure hypercholesterolemia, unspe cified [place] German 12/31/2020 E11.40 Type 2 diabetes steve itus with diabetic neuropathy, unspecified [place] German 12/19/2020 G47.33 Obstructive sleep apnea (adult) (pediatric) Ricardo Bashir MD 12/19/2020 I10 Essential (primary) hypertension Ricardo Bashir MD 12/19/2020 E78.00 Pure hypercholesterolemia, unspe cified Ricardo Bashir MD 10/23/2020 I10 Essential (primary) hypertension Ricardo Bashir MD 10/23/2020 E78.00 Pure hypercholesterolemia, unspe cified Ricardo Bashir MD 10/23/2020 I48.21 Permanent atrial fibrillation Co nael Bashir MD 10/16/2020 E11.40 Type 2 diabetes steve itus with diabetic neuropathy, unspecified [place] German 10/16/2020 I48.21 Permanent atrial fibrillation Na [place] Camargo 10/16/2020 Z79.01 metal base blocker (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 antic oagulants GE[place]ES German [...] Bashir MD Plan of Treatment Future Appointment(s):* 02/19/2021 10:40 am - Rowdy Bashir DO at [facility] * 05/14/2021 10:40 am - [place] German at [facility] 01/20/2021 - Connie Joseph, ANP* R63.4 Abnormal weight loss * R10.9 Unspecified abdominal pain * I10 Essential (primary) hypertension * E78.00 Pure hypercholesterolemia, unspecified * Z79.84 correction (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 oral hypoglycemic drugs * E11.40 Type 2 diabetes mellitus with diabetic neuropathy, unspecified * I48.21 Permanent atrial fibrillation * Z79.01 correction (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 anticoagulants * G47.33 Obstructive sleep apnea (adult) (pediatric) * All * New Medication:* Famotidine 40 mg - 1 by mouth every day Functional Status Description No Information Available Mental Status Description No Information Available Referrals Refer to Dr Reason for Referral Status Appt Date Vickey Muse MD CONSULT FOR SCREENING EGD/COLONOSCOPY Sander hernández Notified 03/11/[address] [place] [id number] [phone]
--- OUTSIDE RECORDS SUMMARY | 2021-04-30 08:57 | CCD | Continuity of Care Document ---
Author Author Nahun PERRY DO Organization Unknown Address [address] [facility] [address] [place] [address] Phone [phone] Care Team Providers Care Administrator Social Welfare Name Role Phone Humaira Silva JR, MD AUTM [phone] Connie Joseph AUTM [phone] Harry Eason MD AUTM [phone] Iona Oneil MD AUTM Unavailable Problems Active [...] every day with food 90tabs Connie Joseph, [facility] 0 Digoxin 250mcg Tablets take [...] 05/03 Administration Of Flu Vaccine Inj ection Aurleia Matamoros, D.O. 03/18 Administration Of Flu Vaccine Inj ection Alejandro EdmondsO. 04/15 Administration Of Flu Vaccine Inj ection Aurelia Matamoros D.O. 05/19 Administration Of Flu Vaccine Inj ection Alejandro EdmondsO. 04/11 Immunizations CPT Code Status Date Vaccine Lot # 62070 Given 04/16/2020 Influenza Vaccin e Quadrivalent Preser/Antibiotic Free Im Use [id number] 45040 Given 06/12/2019 Influenza Vaccin e Quadrivalent Preser/Antibiotic Free Im Use 148497 97914 Given 05/05/2018 Influenza Virus Vaccine, Quadrivalent (Cciiv4), Derived From 0 Given 04/06/2017 Influenza Vaccin e Quadrivalent Preser/Antibiotic Free Im Use [id number] Q2037 Given 04/28/2016 Fluvirin Virus Vaccine 71714 01 Q2037 Given 04/09/2015 Fluvirin Virus Vaccine 37343 01 Q2037 Given 05/03/2014 Fluvirin Virus Vaccine 94785 01 23092 Given 03/18/2009 Influenza Virus Vaccine 66072 Given 06/22/2008 Pneumovax 23 39901 Given 04/15/2007 Influenza Virus Vaccine 95453 Given 05/19/2006 Influenza Virus Vaccine 65487 Given 04/11/2001 Influenza Virus Vaccine 87920 Given 05/27/1998 Influenza Virus Vaccine 13007 Given 05/25/1997 Influenza Virus Vaccine 37051 Given 06/04/1993 Influenza Virus Vaccine Vital Signs [...] H/L Range Note Laboratory test finding 02/19/2021 [place] [address] [phone] Ferritin <pending> Influenza A/B RSV Covid Amp 02/14/2021 [facility] [address] [place] [address] [phone] Influenza A Amplification NEGATIVE Normal Negati ve 1 Influenza B Amplification NEGATIVE Normal Negative 2 RSV Amplification NEGATIVE Normal Negative 3 Sars Covid-19 Amplification NEGATIVE Normal Negative 4 Acetone Level 02/13/2021 [facility] [address] [place] [address] [phone] Acetone/Ketone 2.52 mg/dL Normal <2.81 Ua W/ Reflex To Culture 02/13/2021 [facility] [address] [place] [address] [phone] Appearance, Urine RFX HAZY Normal Clear Color, Urine RFX YELLOW Normal Yellow PH,Urine RFX 5.0 units Normal 5.0-9.0 Specific [place] Ur Auto RFX 1.017 Normal 1.002-1.035 Protein, [...] /LPF Normal 0-1 Laboratory test finding 02/13/2021 [facility] [address] [place] [address] [phone] Osmolality Serum 271 MOSM/KG Low 280-301 Ethyl Alcohol (Ethanol) < 0.003 % Normal 0.000-0.010 Thyroid Stimulating Hormone 2.530 uIU/ML Normal 0.358-3.740 Free T4 1.06 ng/dL Normal 0.76-1.46 Digoxin Level 1.2 NG/ML Normal 0.5-2.0 Basic Metabolic Profile 02/13/2021 [facility] [address] [place] [address] [phone] Glucose, Fasting 122 mg/dL High 70-100 Blood Urea Nitrogen 15 mg/dL Normal 7-18 Creatinine For GFR 0.90 mg/dL Normal 0.70-1.30 Glomerular Filtration Rate > 60.0 Normal >35 5 Sodium Level 135 mEq/L Low 136-145 Potassium Serum 4.1 mEq/L Normal 3.5-5.1 Chloride Level 102 mEq/L Normal 98-107 Carbon Dioxide Level 25 mEq/L Normal 21-32 Anion Gap 8 mEq/L Normal 8-16 Calcium Level 8.2 mg/dL Low 8.8-10.2 Cardiac Marker Panel 02/13/2021 [facility] enter [address] [place] [address] [phone] CPK Creatine Phosphokinase 192 U/L Normal 39-30 8 CK-MB Value Mass 1.1 NG/ML Normal <3.6 MB/CK Relative Index 0.57 Normal < Or =4 6 Troponin I 0.02 NG/ML Normal < 0.10 7 Prothrombin Time/Inr 02/13/2021 [facility] enter [address] [place] [address] [phone] Prothrombin Time 25.2 seconds High 12.7-14.5 Inr 2.24 Normal 8 Hemoglobin A1c 02/13/2021 [facility] nter [address] [place] [address] [phone] Hemoglobin A1c 5.7 % Normal 9 Estimated Average Glucose 117 mg/dL High 60-110 CBC With Differential 02/13/[address] [address] [phone] White Blood Count 6.6 10 Normal 4.0-10.0 [...] 36.0-66.0 Lymph % 11.4 % Low 24.0-44.0 Iron % 15.0 % High 2.0-8.0 Eos % 0.2 % Normal 0.0-3.0 Baso % 0.5 % Normal 0.0-1.0 Immature Granulocyte % 1.1 % Normal 0-3.0 Nucleated Red Blood Cell % 0.0 % Normal 0-0 Neutrophils # 4.7 10 Normal 1.5-8.5 Lymph # 0.8 10 Low 1.5-5.0 Iron # 1.0 10 High 0.0-0.8 Eos # 0.0 10 Normal 0.0-0.5 Baso # 0.0 10 Normal 0.0-0.2 Laboratory test finding 02/13/2021 [facility] [address] [place], [place] [id number] [phone] Bedside Glucose 123 mg/dL High 83-110 Laboratory test finding 02/13/2021 [facility] [address] [place], [place] [address] [phone] Partial Thromboplastin Time 55.6 seconds High 25 .9-37.0 Lactic Acid Sepsis Protocol 1.2 mmol/L Normal 0.4-2.0 10 Basic Metabolic Panel 02/05/2021 [facility] Expert Witness: Dr Ricardo Perry [place], [place] [address] [phone] Glucose 132 mg/dL High 74 - 99 11 BUN 9 mg/dL 7 - 18 Creatinine 0.9 mg/dL 0.6 - 1.3 Sodium 138 mEq/L 136 - 145 Potassium 4.2 mEq/L 3.5 - 5.1 Chloride 103 mEq/L 98 - 107 Carbon Dioxide 29 mEq/L 21 - 32 Calcium 9.6 mg/dL 8.5 - 10.1 GFR >= 60 mL/min >60 GFR >= 60 mL/min >60 12 A1c 02/05/2021 [facility] Expert Witness: Dr Silva [place], [place] [id number] [phone] Hba1c 5.6 % <5.7 13 Est Avg Glucose 114 mg/dL High 60 - 110 Microalbumin/Creatinine Urine 02/05/2021 [facility] Expert Witness: [place] [address] [phone] Microalbumin Urine 6.1 mg/L 1.3 - 20.0 Urine Creatinine 121.2 mg/dL 30.0 - 125.0 Microalb/Creat Ratio 5.0 ug/mg 0.0 - 30.0 Laboratory test finding 12/31/2020 [facility] [address] [place] [address] [phone] Lipase 223 U/L Normal 73-393 Comprehensive Chem Profile 12/31/2020 [facility] Expert Witness: [place] [address] [phone] Glucose 98 mg/dL 74 - 99 14 BUN 12 mg/dL 7 - 18 Creatinine [...] mL/min >60 GFR >= 60 mL/min >60 15 Complete Blood Count 12/31/2020 [facility] Expert Witness: [place] [address] [phone] WBC 5.2 x10*3/UL 4.1 - 10.9 RBC [...] 2.0 - 7.8 Laboratory test finding 12/31/[address] [address] [phone] Digoxin Level 1.2 NG/ML Normal 0.5-2.0 Lyme Disease SCRN With Confirm 12/31/[address] [address] [phone] Lyme Disease IgG/IgM Antibodie <0.91 ISR Normal 0 .00-0.90 16 Lyme Disease IgM Ab Quantitati <0.80 index Normal 0.00-0.79 17 Complete Blood Count 10/16/2020 [facility] Expert Witness: [place] [address] [phone] WBC 5.0 x10*3/UL 4.1 - 10.9 RBC [...] 3.9 x10*3/UL 2.0 - 7.8 A1c 10/16/2020 [facility] , Expert Witness: Dr Ricardo Perry [place] [id number] [phone] Hba1c 5.9 % High <5.7 18 Est Avg Glucose 123 mg/dL High 60 - 110 Comprehensive Chem Profile 10/16/2020 [facility], Expert Witness: [place] [address] [phone] Glucose 120 mg/dL High 74 - 99 [...] 60 mL/min >60 20 Lipid Profile 10/16/2020 [facility] , Expert Witness: Dr [place] [address] [phone] Cholesterol 85 mg/dL Low 131 - 200 [...] pathogens. DISCLAIMER: Testing was performed using the [facility] SARS-CoV-2 test. This test was developed and its performance characteristics determined by [facility]. This test has not been FDA cleared [...] authorization is terminated or revoked sooner. 5 Units are mL/min/1.73 m2 Chronic Kidney Disease Staging per NKF: Stage I & II GFR >=60 Normal to Mildly Decreased Stage III GFR 30-59 Moderately Decreased Stage IV GFR 15-29 Severely Decreased Stage V GFR <15 Very Little GFR Left ESRD GFR <15 on YOUTH TEACHER 6 DIAGNOSIS CRITERIA MMB ng/ml Relative Index (RI) NON-AMI < or = 5 N/A LAWSON ZONE > 5 < or = 4 AMI > 5 > 4 7 Troponin I Reference Interva l for [employer] LOCI: 99th Percentile= 0.00-0.045 ng/ml Risk Stratification: <= 0.10 ng/ml Decreased Risk for Adverse Clinical Events. 0.10-1.50 ng/ml Increased Risk for Adv erse Clinical Events. Evaluation of additional criterion and/or repeat testing in 2-6 hours is suggested to rule out myocardial damage. >= 1.50 ng/ml Indicative of Myocardial Injury. 8 THERAPUTIC HUMAN INR VALUES INDICATIONS NORMAL RANGES PROPHYLAXIS/TREATMENT OF: VENOUS THROMBOSIS 2.0-3.0 PULMONARY EMBOLISM 2.0-3.0 PREVENTION OF SYSTEMIC EMBOLISM FROM: TISSUE HEART VALVES 2.0-3.0 ACUTE MYOCARDIAL INFARCTION 2.0-3.0 VALVULAR HEART DISEASE 2.0-3.0 ATRIAL FIBRILLATION 2.0-3.0 MECHANICAL VALVES(HIGH RISK) 2.5-3.5 RECURRENT MYOCARDIAL INFARCTION 2.5-3.5 9 REFERENCE RANGES: <=5.6% NORMAL 5.7-6.4% SUGGESTS IMPAIRED GLUCOSE META BOLISM/PREDIABETIC >= 6.5% ABNORMAL 10 Y/N query for Sepsis Lactate Rule: Y 11 100-125 mg/dL PRE-DIABET ES/FASTING >126 mg/dL DIABETES/FASTING 12 CHRONIC KIDNEY DISEASE STAGI NG PER NKF STAGE I & II GFR >= 60 NORMAL TO MILDLY DECREASED STAGE III GFR 30-59 MODERATELY DECREASED STAGE IV GFR 15-29 SEVERELY DECREASED STAGE V GFR <15 VERY LITTLE GFR LEFT ESRD GFR <15 ON YOUTH TEACHER 13 Lab Result Notes: Pre-Diabetes 5.7 - 6.4 % Diabetes = or > 6.5% 14 100-125 mg/dL PRE-DIABET ES/FASTING >126 mg/dL DIABETES/FASTING 15 CHRONIC KIDNEY DISEASE STAGI NG PER NKF STAGE I & II GFR >= 60 NORMAL TO MILDLY DECREASED STAGE III GFR 30-59 MODERATELY DECREASED STAGE IV GFR 15-29 SEVERELY DECREASED STAGE V GFR <15 VERY LITTLE GFR LEFT ESRD GFR <15 ON YOUTH TEACHER 16 Negative <0.91 Equivocal 0.91 - 1.09 Positive >1.09 17 Negative <0.80 Equivocal 0.80 - 1.19 Positive >1.19 . IgM levels may peak at 3-6 weeks post infection, then gradually decline. Performed at: RN - [facility] [address] [id number] Expert Witness: Alvina Puckett MD, Phone: [phone] Lab Result Notes: Pre-Diabetes 5.7 - [...] LITTLE GFR LEFT ESRD GFR <15 ON YOUTH TEACHER Procedures Date Code Description Status 01/20/2021 86740 Office/Outpatient Established Lo w MDM 20-29 Min Completed 12/31/2020 34406 Office/Outpatient Established Mo d MDM 30-39 Min Completed 12/19/2020 48167 Chronic Care MGMT 20 Mins Clinical Staff Time Per Calendar Month Completed 10/23/2020 40345 Chronic Care MGMT 20 Mins Clinical Staff Time Per Calendar Month Completed 10/16/2020 90709 Office/Outpatient Established Mo d MDM 30-39 Min Completed 09/03/2020 03950 Chronic Care MGMT 20 Mins Clinical Staff Time Per Calendar Month Completed 05/20/2020 [id number] Colonoscopy Completed 03/03/2017 [id number] Colonoscopy Completed 12/24/2016 [id number] Diabetic Retinal Eye Exam Comple patricia 02/27/2013 [id number] Colonoscopy Completed 08/22/2007 [id number] Colonoscopy Completed Medical Devices Description No Information Available Encounters Type Date Location Provider Dx Diagnosis Office Visit [facility] R63.4 Abnormal weight loss R10.9 Unspecified abdominal pain I10 Essential (primary) hyperten lacey E78.00 Pure hypercholesterolemia, u nspecified Z79.84 USP (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 o ral hypoglycemic drugs 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, unsp I48.21 Permanent atrial fibrillatio n Z79.01 USP (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 a nticoagulants G47.33 Obstructive sleep apnea (kike lt) (pediatric) Office Visit 12/31/2020 [facility] R10.9 Unspecified abdominal pain R63.4 Abnormal weight loss S30.861A Insect bite (nonvenomous) of abdominal wall, init encntr I10 Essential (primary) hyperten lacey E78.00 Pure hypercholesterolemia, u nspecified 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, unsp Office Visit 10/16/2020 9[facility] ANP 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, unsp I48.21 Permanent atrial fibrillatio n Z79.01 USP (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 a nticoagulants E78.00 Pure [...] 02/05/2021 I10 Essential (primary) hypertension Connie Joseph, [place] 02/05/2021 I10 Essential (primary) hypertension Lab Schedule 01/20/2021 R63.4 Abnormal weight loss Connie Anderson icer, ANP 01/20/2021 R10.9 Unspecified abdominal pain Connie Joseph, [place] 01/20/2021 I10 Essential (primary) hypertension Connie Joseph, ANP 01/20/2021 E78.00 Pure hypercholesterolemia, unspe cified Connie Joseph, ANP 01/20/2021 Z79.84 extermination supervisor (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 oral hypoglycemic drugs Connie Joseph, [place] 01/20/2021 E11.40 Type 2 diabetes steve itus with diabetic neuropathy, unspecified Connie Joseph, [place] 01/20/2021 I48.21 Permanent atrial fibrillation Na deysi Joseph, [place] 01/20/2021 Z79.01 extermination supervisor (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 antic oagulants Connie Joseph, [...] [facility] 10/16/2020 I48.21 Permanent atrial fibrillation Na deysi Joseph, [place] 10/16/2020 Z79.01 extermination supervisor (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 antic oagulants [place] [facility] 10/16/2020 E78.00 Pure hypercholesterolemia, unspe cified Connie [...] 05/14/2021 10:40 am - [place] [facility] at [facility] 02/19/2021 - Christopher Krysten, DO* All * New Orders:* pt needs harness for his Cpap machine, Ordered: 02/19/21 Functional Status Description No Information Available Mental Status Description No Information Available Referrals Refer to Reason for Referral Status Appt Date Vickey Muse MD CONSULT FOR SCREENING EGD/COLONOSCOPY Sander hernández Notified 03/11/[address] [place], [place] [address] [phone]
--- OUTSIDE RECORDS SUMMARY | 2021-04-30 08:57 | CCD | Continuity of Care Document ---
Author Author Lab Schedule, Nahun P Organization Unknown Address [address] [address] Phone Unavailable Care Team Providers Care Spray Mixer Name Role Phone Humaira Silva JR, MD AUTM Connie Joseph AUTM [phone] Harry Eason MD AUTM [phone] Iona Oneil MD AUTM Unavailable Problems Active [...] 1 by mouth every day Connie Joseph, [facility] 05/30/2018 Areds2 1 Daily Connie Joseph, [...] by mouth every day 90caps Connie Joseph, [facility] Xarelto 20mg Tablets take one tablet by mouth every day with food 90tabs Connie Joseph, [facility] 0 Digoxin 250mcg Tablets take 1 [...] CPT Code Status Date Vaccine Lot # 24981 Given 04/16/2020 Influenza Vaccin e Quadrivalent Preser/Antibiotic Free Im Use 403205 91914 Given 06/12/2019 Influenza Vaccin e Quadrivalent Preser/Antibiotic Free Im Use 150898 47412 Given 05/05/2018 Influenza Virus Vaccine, Quadrivalent (Cciiv4), Derived From 4 Given 04/06/2017 Influenza Vaccin e Quadrivalent Preser/Antibiotic Free Im Use [id number] Q2037 Given 04/28/2016 Fluvirin Virus Vaccine 33841 01 Q2037 Given 04/09/2015 Fluvirin Virus Vaccine 34603 01 Q2037 Given 05/03/2014 Fluvirin Virus Vaccine 11795 01 97822 Given 03/18/2009 Influenza Virus Vaccine 45288 Given 06/22/2008 Pneumovax 23 87547 Given 04/15/2007 Influenza Virus Vaccine 01831 Given 05/19/2006 Influenza Virus Vaccine 12306 Given 04/11/2001 Influenza Virus Vaccine 03906 Given 05/27/1998 Influenza Virus Vaccine 25886 Given 05/25/1997 Influenza Virus Vaccine 28531 Given 06/04/1993 Influenza Virus Vaccine Vital Signs [...] Result H/L Range Note Laboratory test finding 12/31/2020 [facility] [address] [place] [address] [phone] Lipase 223 U/L Normal 73-393 Lyme Disease SCRN With Confirm 12/31/2020 [facility] [address] [place] [address] [phone] Lyme Disease IgG/IgM Antibodie <0.91 ISR Normal 0 .00-0.90 1 Lyme Disease IgM Ab Quantitati <0.80 index Normal 0.00-0.79 2 Laboratory test finding 12/31/2020 [facility] [address] [place] [address] [phone] Digoxin Level 1.2 NG/ML Normal 0.5-2.0 Complete Blood Count 12/31/2020 [facility] [place]: [place] [address] [phone] WBC 5.2 x10*3/UL 4.1 - 10.9 RBC [...] 2.0 - 7.8 Comprehensive Chem Profile 12/31/2020 [facility] [place]: [place] [address] [phone] Glucose 98 mg/dL 74 - 99 3 BUN 12 mg/dL 7 - 18 Creatinine [...] mL/min >60 GFR >= 60 mL/min >60 4 Complete Blood Count 10/16/2020 [facility] [place]: [place] [address] [phone] WBC 5.0 x10*3/UL 4.1 - 10.9 RBC [...] 3.9 x10*3/UL 2.0 - 7.8 A1c 10/16/2020 [facility] [place]: Dr Ricardo Bashir [place], [place] [address] [phone] Hba1c 5.9 % High <5.7 5 Est Avg Glucose 123 mg/dL High 60 - 110 Comprehensive Chem Profile 10/16/2020 [facility] [place]: Dr Ricardo Bashir [place], [place] [address] [phone] Glucose 120 mg/dL High 74 - 99 6 BUN 13 mg/dL 7 - 18 Creatinine [...] >60 GFR >= 60 mL/min >60 7 Lipid Profile 10/16/2020 [facility] , [place]: Dr Ricardo Bashir [place], [place] [address] [phone] Cholesterol 85 mg/dL Low 131 - 200 Triglycerides 155 mg/dL High 30 - 150 HDL Cholesterol 37 mg/dL 35 - 60 LDL (Calculated) INVALID CALC 50 - 159 1 Negative <0.91 Equivocal 0.91 - 1.09 Positive >1.09 2 Negative <0.80 Equivocal 0.80 - 1.19 Positive >1.19 . IgM levels may peak at 3-6 weeks post infection, then gradually decline. Performed at: RN - [facility] [address] [id number] [place]: Alvina Puckett MD, Phone: [phone] 3 100-125 mg/dL PRE-DIABET ES/FASTING >126 mg/dL DIABETES/FASTING 4 CHRONIC KIDNEY DISEASE STAGI NG PER NKF STAGE I & II GFR >= 60 NORMAL TO MILDLY DECREASED STAGE III GFR 30-59 MODERATELY DECREASED STAGE IV GFR 15-29 SEVERELY DECREASED STAGE V GFR <15 VERY LITTLE GFR LEFT ESRD GFR <15 ON ROLL CLEANER 5 Lab Result Notes: Pre-Diabetes 5.7 - 6.4 % Diabetes = or > 6.5% 6 100-125 mg/dL PRE-DIABET ES/FASTING >126 mg/dL DIABETES/FASTING 7 CHRONIC KIDNEY DISEASE STAGI NG PER NKF STAGE I & II GFR >= 60 NORMAL TO MILDLY DECREASED STAGE III GFR 30-59 MODERATELY DECREASED STAGE IV GFR 15-29 SEVERELY DECREASED STAGE V GFR <15 VERY LITTLE GFR LEFT ESRD GFR <15 ON ROLL CLEANER Procedures Date Code Description Status 01/20/2021 24037 Office/Outpatient Established Lo w MDM 20-29 Min Completed 12/31/2020 03647 Office/Outpatient Established Mo d MDM 30-39 Min Completed 10/23/2020 71125 Chronic Care MGMT 20 Mins Clinical Staff Time Per Calendar Month Completed 10/16/2020 36376 Office/Outpatient Established Mo d MDM 30-39 Min Completed 09/03/2020 61442 Chronic Care MGMT 20 Mins Clinical Staff Time Per Calendar Month Completed 05/20/2020 [id number] Colonoscopy Completed 03/03/2017 [id number] Colonoscopy Completed 12/24/2016 [id number] Diabetic Retinal Eye Exam Comple patricia 02/27/2013 [id number] Colonoscopy Completed 08/22/2007 [id number] Colonoscopy Completed Medical Devices Description No Information Available Encounters Type Date Location Provider Dx Diagnosis Office Visit 01/20/2021 9:20a [facility] Joseph, ANP R63.4 Abnormal weight loss R10.9 Unspecified abdominal pain I10 Essential (primary) hyperten lacey E78.00 Pure hypercholesterolemia, u nspecified Z79.84 correction (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 o ral hypoglycemic drugs 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 Connie Joseph, ANP 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, unsp I48.21 Permanent atrial fibrillatio n Z79.01 correction (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 a nticoagulants E78.00 Pure [...] use of antic oagulants Connie Joseph, [place] 01/20/2021 G47.33 Obstructive sleep apnea (adult) (pediatric) [...] fibrillation Na deysi Joseph, [place] 10/16/2020 Z79.01 manager long term care (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 antic oagulants [place] [facility] [...] 05/14/2021 10:40 am - [place] at [facility] 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.84 manager long term care (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 oral hypoglycemic drugs * E11.40 Type 2 diabetes mellitus with diabetic neuropathy, unspecified * I48.21 Permanent atrial fibrillation * Z79.01 manager long term care (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 anticoagulants * G47.33 Obstructive sleep apnea (adult) (pediatric) * All * New Medication:* Famotidine 40 mg - 1 by mouth every day Functional Status Description No Information Available Mental Status Description No Information Available Referrals Refer to Reason for Referral Status Appt Date Vickey Muse MD CONSULT FOR SCREENING EGD/COLONOSCOPY Sander hernández Notified 03/11/[address] [place] [address] [phone]
--- OUTSIDE RECORDS SUMMARY | 2021-04-30 08:57 | CCD | Continuity of Care Document ---
Author Organization Unknown Address Unknown Phone Unavailable Care Team Providers Care Oracle Ebs Architect Name Role Phone Humaira Silva JR, MD AUTM Connie Joseph AUTM [phone] Harry Eason MD AUTM [phone] Iona Oneil MD AUTM Unavailable Problems Active [...] German 05/30/2018 [facility]red[facility] 1 Daily Connie Joseph, [facility] 11/20 Nitrostat 0.4mg Tablets Sub one under tongue every 5 minutes x 3 as needed for chest discomfort 25tabs Connie Joseph, [place] 12/08/2017 Mens Multi Vitamin & Mineral Formula Tablets Connie Joseph, [facility] 017 Aspirin 81mg Tablets 1 po qd 30tabs Viajya Edmonds, [facility] 11/29/2008 Vitamin D3 High Potency [...] by mouth every day with food 90tabs Connei Joseph, [facility] 0 Digoxin 250mcg Tablets take [...] CPT Code Status Date Vaccine Lot # [id number] Given 04/16/2020 Influenza Vaccin e Quadrivalent Preser/Antibiotic Free Im Use [id number] 18527 Given 06/12/2019 Influenza Vaccin e Quadrivalent Preser/Antibiotic Free Im Use [id number] 20213 Given 05/05/2018 Influenza Virus Vaccine, Quadrivalent ([id number]), Derived From 2 Given 04/06/2017 Influenza Vaccin e Quadrivalent Preser/Antibiotic Free Im Use [id number] Q2037 Given 04/28/2016 Fluvirin Virus Vaccine [id number] 01 [id number] Given 04/09/2015 Fluvirin Virus Vaccine 59120 01 Q2037 Given 05/03/2014 Fluvirin Virus Vaccine 61531 01 39774 Given 03/18/2009 Influenza Virus Vaccine 54936 Given 06/22/2008 Pneumovax 23 69731 Given 04/15/2007 Influenza Virus Vaccine 63704 Given 05/19/2006 Influenza Virus Vaccine 23040 Given 04/11/2001 Influenza Virus Vaccine 03623 Given 05/27/1998 Influenza Virus Vaccine 70323 Given 05/25/1997 Influenza Virus Vaccine 24434 Given 06/04/1993 Influenza Virus Vaccine Vital Signs [...] Note Influenza A/B RSV Covid Amp 02/14/2021 [facility] [address] [place] [address] [phone] Influenza A Amplification NEGATIVE Normal Negati ve 1 Influenza B Amplification NEGATIVE Normal Negative 2 RSV Amplification NEGATIVE Normal Negative 3 Sars Covid-19 Amplification NEGATIVE Normal Negative 4 Laboratory test finding 02/13/2021 [facility] [address] [place] [address] [phone] Bedside Glucose 123 mg/dL High 83-110 CBC With Differential 02/13/2021 [facility] [address] [place] [address] [phone] White Blood Count 6.6 10 Normal 4.0-10.0 [...] 36.0-66.0 Lymph % 11.4 % Low 24.0-44.0 [place] % 15.0 % High 2.0-8.0 Eos % 0.2 % Normal 0.0-3.0 Baso % 0.5 % Normal 0.0-1.0 Immature Granulocyte % 1.1 % Normal 0-3.0 Nucleated Red Blood Cell % 0.0 % Normal 0-0 Neutrophils # 4.7 10 Normal 1.5-8.5 Lymph # 0.8 10 Low 1.5-5.0 [place] # 1.0 10 High 0.0-0.8 Eos # 0.0 10 Normal 0.0-0.5 Baso # 0.0 10 Normal 0.0-0.2 Hemoglobin A1c 02/13/2021 [facility] [address] [place] [address] [phone] Hemoglobin A1c 5.7 % Normal 5 Estimated Average Glucose 117 mg/dL High 60-110 Prothrombin Time/Inr 02/13/2021 [facility] enter [address] [place] [address] [phone] Prothrombin Time 25.2 seconds High 12.7-14.5 Inr 2.24 Normal 6 Laboratory test finding 02/13/2021 [facility] [address] [place] [address] [phone] Partial Thromboplastin Time 55.6 seconds High 25 .9-37.0 Lactic Acid Sepsis Protocol 1.2 mmol/L Normal 0.4-2.0 7 Cardiac Marker Panel 02/13/2021 [facility] enter [address] [place] [address] [phone] CPK Creatine Phosphokinase 192 U/L Normal 39-30 8 CK-MB Value Mass 1.1 NG/ML Normal <3.6 MB/CK Relative Index 0.57 Normal < Or =4 8 Troponin I 0.02 NG/ML Normal < 0.10 9 Basic Metabolic Profile 02/13/[address] [address] [phone] Glucose, Fasting 122 mg/dL High 70-100 Blood [...] 8.2 mg/dL Low 8.8-10.2 Acetone Level 02/13/2021 [facility] [address] [place] [address] [phone] Acetone/Ketone 2.52 mg/dL Normal <2.81 Laboratory test finding 02/13/[address] [address] [phone] Osmolality Serum 271 MOSM/KG Low 280-301 Ethyl Alcohol (Ethanol) < 0.003 % Normal 0.000-0.010 Thyroid Stimulating Hormone 2.530 uIU/ML Normal 0.358-3.740 Free T4 1.06 ng/dL Normal 0.76-1.46 Digoxin Level 1.2 NG/ML Normal 0.5-2.0 Ua W/ Reflex To Culture 02/13/2021 [facility] [address], [place] [address] [phone] Appearance, Urine RFX HAZY Normal Clear Color, Urine RFX YELLOW Normal Yellow PH,Urine RFX 5.0 units Normal 5.0-9.0 Specific [place] Ur Auto RFX 1.017 Normal 1.002-1.035 Protein, [...] /LPF Normal 0-1 Basic Metabolic Panel 02/05/2021 [facility] [employer] Testing Machine Operator: Dr Ricardo Bashir [place], [place] [id number] [phone] Glucose 132 mg/dL High 74 - 99 [...] 60 mL/min >60 12 Microalbumin/Creatinine Urine 02/05/2021 [facility], [employer] Testing Machine Operator: [place] [address] [phone] Microalbumin Urine 6.1 mg/L 1.3 - 20.0 Urine Creatinine 121.2 mg/dL 30.0 - 125.0 Microalb/Creat Ratio 5.0 ug/mg 0.0 - 30.0 A1c 02/05/2021 [facility] [employer] Testing Machine Operator: [place] [address] [phone] Hba1c 5.6 % <5.7 13 Est Avg Glucose 114 mg/dL High 60 - 110 Laboratory test finding 12/31/[address] [address] [phone] Lipase 223 U/L Normal 73-393 Lyme Disease SCRN With Confirm 12/31/[address] [address] [phone] Lyme Disease IgG/IgM Antibodie <0.91 ISR Normal 0 .00-0.90 14 Lyme Disease IgM Ab Quantitati <0.80 index Normal 0.00-0.79 15 Laboratory test finding 12/31/[address] [address] [phone] Digoxin Level 1.2 NG/ML Normal 0.5-2.0 Complete Blood Count 12/31/2020 [facility] [employer] Machine Operator: [place] [address] [phone] WBC 5.2 x10*3/UL 4.1 - 10.9 RBC [...] 2.0 - 7.8 Comprehensive Chem Profile 12/31/2020 [facility] [employer] Machine Operator: [place] [address] [phone] Glucose 98 mg/dL 74 - 99 16 [...] mL/min >60 17 Complete Blood Count 10/16/2020 [facility]ed [employer] Testing Machine Operator: [place] [address] [phone] WBC 5.0 x10*3/UL 4.1 - 10.9 RBC [...] 3.9 x10*3/UL 2.0 - 7.8 A1c 10/16/2020 [facility] , [employer] Testing Machine Operator: [place] [address] [phone] Hba1c 5.9 % High <5.7 18 Est Avg Glucose 123 mg/dL High 60 - 110 Comprehensive Chem Profile 10/16/2020 [facility] [employer] Testing Machine Operator: [place] [address] [phone] Glucose 120 mg/dL High 74 - 99 [...] 60 mL/min >60 20 Lipid Profile 10/16/2020 [facility] , [employer] Testing Machine Operator: [place] [address] [phone] Cholesterol 85 mg/dL Low 131 - 200 [...] pathogens. DISCLAIMER: Testing was performed using the [employer] SARS-CoV-2 test. This test was developed and its performance characteristics determined by [employer]. This test has not been FDA cleared [...] 9 Troponin I Reference Interva l for [employer] LOCI: 99th Percentile= 0.00-0.045 ng/ml Risk Stratification: [...] Little GFR Left ESRD GFR <15 on STUDY LEAD 11 100-125 mg/dL PRE-DIABET ES/FASTING >126 mg/dL DIABETES/FASTING 12 CHRONIC KIDNEY DISEASE STAGI NG PER NKF STAGE I & II GFR >= 60 NORMAL TO MILDLY DECREASED STAGE III GFR 30-59 MODERATELY DECREASED STAGE IV GFR 15-29 SEVERELY DECREASED STAGE V GFR <15 VERY LITTLE GFR LEFT ESRD GFR <15 ON STUDY LEAD 13 Lab Result Notes: Pre-Diabetes 5.7 - 6.4 % Diabetes = or > 6.5% 14 Negative <0.91 Equivocal 0.91 - 1.09 Positive >1.09 15 Negative <0.80 Equivocal 0.80 - 1.19 Positive >1.19 . IgM levels may peak at 3-6 weeks post infection, then gradually decline. Performed at: RN - [facility] [address] [id number] [employer] Testing Machine Operator: Alvina Puckett MD, Phone: [phone] 16 100-125 mg/dL PRE-DIABET ES/FASTING >126 mg/dL DIABETES/FASTING 17 CHRONIC KIDNEY DISEASE STAGI NG PER NKF STAGE I & II GFR >= 60 NORMAL TO MILDLY DECREASED STAGE III GFR 30-59 MODERATELY DECREASED STAGE IV GFR 15-29 SEVERELY DECREASED STAGE V GFR <15 VERY LITTLE GFR LEFT ESRD GFR <15 ON STUDY LEAD 18 Lab Result Notes: Pre-Diabetes 5.7 - [...] LITTLE GFR LEFT ESRD GFR <15 ON STUDY LEAD Procedures Date Code Description Status 01/20/2021 87055 Office/Outpatient Established Lo w MDM 20-29 Min Completed 12/31/2020 21967 Office/Outpatient Established Mo d MDM 30-39 Min Completed 12/19/2020 58112 Chronic Care MGMT 20 Mins Clinical Staff Time Per Calendar Month Completed 10/23/2020 14400 Chronic Care MGMT 20 Mins Clinical Staff Time Per Calendar Month Completed 10/16/2020 32586 Office/Outpatient Established Mo d MDM 30-39 Min Completed 09/03/2020 87020 Chronic Care MGMT 20 Mins Clinical Staff Time Per Calendar Month Completed 05/20/2020 [id number] Colonoscopy Completed 03/03/2017 [id number] Colonoscopy Completed 12/24/2016 [id number] Diabetic Retinal Eye Exam Comple patricia 02/27/2013 [id number] Colonoscopy Completed 08/22/2007 [id number] Colonoscopy Completed Medical Devices Description No Information Available Encounters Type Date Location Provider Dx Diagnosis [facility]4 Abnormal weight loss R10.9 Unspecified abdominal pain I10 Essential (primary) hyperten lacey E78.00 Pure hypercholesterolemia, u nspecified Z79.84 manager terminal (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 o ral hypoglycemic drugs 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, unsp I48.21 Permanent atrial fibrillatio n Z79.01 manager terminal (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 a nticoagulants G47.33 Obstructive sleep apnea (kike lt) (pediatric) Office Visit 12/31/2020 [facility] R10[facility]9 Unspecified abdominal pain R63.4 Abnormal weight loss S30.861A Insect bite (nonvenomous) of abdominal wall, init encntr I10 Essential (primary) hyperten lacey E78.00 Pure hypercholesterolemia, u nspecified 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, unsp Office Visit 10/16/2020 9[facility] ANP 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, unsp I48.21 Permanent atrial fibrillatio n Z79.01 manager terminal (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 a nticoagulants E78.00 [...] unspe cified Connie Joseph, ANP 01/20/2021 Z79.84 longterm (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 oral hypoglycemic drugs Connie Joseph, [place] 01/20/2021 E11.40 Type 2 diabetes steve itus with diabetic neuropathy, unspecified Connie Joseph, ANP 01/20/2021 I48.21 Permanent atrial fibrillation Na deysi Joseph, ANP 01/20/2021 Z79.01 longterm (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 antic oagulants Connie Joseph, [...] atrial fibrillation Na [place] 10/16/2020 Z79.01 manager terminal (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 antic oagulants [place] 10/16/2020 E78.00 Pure hypercholesterolemia, unspe cified [place] German 10/16/2020 I10 Essential (primary) hypertension [place] German 10/16/2020 G47.33 Obstructive sleep apnea (adult) (pediatric) [place] German 10/16/2020 Z13.89 Encounter for screening for othe r disorder [place] eGrman 09/03/2020 I10 Essential (primary) hypertension Ricardo Bashir MD 09/03/2020 G47.33 Obstructive sleep apnea (adult) (pediatric) Ricardo Bashir MD 09/03/2020 E78.00 Pure hypercholesterolemia, unspe cified Ricardo Bashir MD Plan of Treatment Future Appointment(s):* 02/19/2021 10:40 am - Rowdy Bashir DO at [facility] * 05/14/2021 10:40 am - [place] German at [facility] 01/20/2021 - Connie Joseph, ANP* R63.4 Abnormal weight loss * R10.9 Unspecified abdominal pain * I10 Essential (primary) hypertension * E78.00 Pure hypercholesterolemia, unspecified * Z79.84 longterm (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 oral hypoglycemic drugs * E11.40 Type 2 diabetes mellitus with diabetic neuropathy, unspecified * I48.21 Permanent atrial fibrillation * Z79.01 longterm (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 anticoagulants * G47.33 Obstructive sleep apnea (adult) (pediatric) * All * New Medication:* Famotidine 40 mg - 1 by mouth every day Functional Status Description No Information Available Mental Status Description No Information Available Referrals Refer to Dr Reason for Referral Status Appt Date Vickey Muse MD CONSULT FOR SCREENING EGD/COLONOSCOPY Sander hernández Notified 03/11/[address] [place] [id number] [phone]
--- OUTSIDE RECORDS SUMMARY | 2021-04-30 08:58 | CCD ---
Author Author [facility] Organization [facility] Address Unknown Phone Unavailable Care Team Providers Care Supply Manager Name Role Phone Josee Muse MD Unavailable Unavailable Josee Muse MD Unavailable Unavailable Josee Muse MD Unavailable Unavailable Josee Muse MD Unavailable Unavailable Josee Muse MD Unavailable Unavailable Josee Muse MD Unavailable Unavailable Josee Muse MD Unavailable Unavailable Josee Muse MD Unavailable Unavailable Josee Muse MD Unavailable Unavailable Josee Muse MD Unavailable Unavailable Josee Muse MD Unavailable Unavailable Josee Muse MD Unavailable Unavailable Josee Muse MD Unavailable Unavailable Josee Muse MD Unavailable Unavailable Josee Muse MD Unavailable Unavailable Josee Muse MD Unavailable Unavailable Josee Muse MD Unavailable Unavailable Josee Muse MD Unavailable Unavailable Josee Muse MD Unavailable Unavailable Josee Muse MD Unavailable Unavailable Josee Muse MD Unavailable Unavailable Josee Muse MD Unavailable Unavailable Josee Muse MD Unavailable Unavailable Josee Muse MD Unavailable Unavailable Josee Muse MD Unavailable Unavailable Josee Muse MD Unavailable Unavailable Josee Muse MD Unavailable Unavailable Josee Muse MD Unavailable Unavailable Josee Muse MD Unavailable Unavailable Josee Muse MD Unavailable Unavailable Josee Muse MD Unavailable Unavailable Almaz, S Vickey MONCADA Unavailable Unavailable Almaz, S Vickey MONCADA Unavailable Unavailable Almaz, S Vickey MONCADA Unavailable Unavailable Almaz, S Vcikey MONCADA Unavailable Unavailable Almaz, S Vickey MONCADA Unavailable Unavailable Almaz, S Vickey MONCADA Unavailable Unavailable Almaz, S Vickey MONCADA Unavailable Unavailable Almaz, S Vickey MONCADA Unavailable Unavailable Almaz, S Vickey MD Unavailable Unavailable Almaz, S Vickey MD Unavailable Unavailable Almaz, S Vickey MD Unavailable Unavailable Almaz, S Vickey MD Unavailable Unavailable Almaz, S Vickey MONCADA Unavailable Unavailable Almaz, S Vickey MONCADA Unavailable Unavailable Almaz, S Vickey MD Unavailable Unavailable Almaz, S Vickey MD Unavailable Unavailable Almaz, S Vickey MD Unavailable Unavailable Almaz, S Vickey MD Unavailable Unavailable Almaz, S Vickey MD Unavailable Unavailable Del Rio, Bertrand Unavailable Unavailable Del Rio, Bertrand Unavailable Unavailable [place], Bertrand Unavailable Unavailable [place], Bertrand Unavailable Unavailable [place], Bertrand Unavailable Unavailable [place], Bertrand Unavailable Unavailable [place], Bertrand Unavailable Unavailable [place], Bertrand Unavailable Unavailable [place], Bertrand Unavailable Unavailable [place], Bertrand Unavailable Unavailable [place], Bertrand Unavailable Unavailable [place], Bertrand Unavailable Unavailable [place], Bertrand Unavailable Unavailable [place], Bertrand Unavailable Unavailable [place], Bertrand Unavailable Unavailable [place], Bertrand Unavailable Unavailable [place], Bertrand Unavailable Unavailable [place], Bertrand Unavailable Unavailable [place], Bertrand Unavailable Unavailable [place], Bertrand Unavailable Unavailable [place], Bertrand Unavailable Unavailable [place], Bertrand Unavailable Unavailable [place], Bertrand Unavailable Unavailable [place], Bertrand Unavailable Unavailable [place], Bertrand Unavailable Unavailable [place], Bertrand Unavailable Unavailable [place], Bertrand Unavailable Unavailable [place], Bertrand Unavailable Unavailable [place], Bertrand Unavailable Unavailable [place], Bertrand Unavailable Unavailable [place], Bertrand Unavailable Unavailable [place], Bertrand Unavailable Unavailable [place], Bertrand Unavailable Unavailable [place], Bertrand Unavailable Unavailable [place], Bertrand Unavailable Unavailable [place], Bertrand Unavailable Unavailable [place], Bertrand Unavailable Unavailable [place], Bertrand Unavailable Unavailable [place], Bertrand Unavailable Unavailable [place], Bertrand Unavailable Unavailable [place], Bertrand Unavailable Unavailable [place], Bertrand Unavailable Unavailable [place], Bertrand Unavailable Unavailable [place], Bertrand Unavailable Unavailable [place], Bertrand Unavailable Unavailable OPAL, J Connie ANP Unavailable Unavailable OPAL, J Connie ANP Unavailable Unavailable OPAL, J Connie ANP Unavailable Unavailable OPAL, J Connie ANP Unavailable Unavailable OPAL, J Connie ANP Unavailable Unavailable OPAL, J Connie ANP Unavailable Unavailable OPAL, J Connie ANP Unavailable Unavailable OPAL, J Connie ANP Unavailable Unavailable OPAL, J Connie ANP Unavailable Unavailable OPAL, J Connie ANP Unavailable Unavailable OPAL, J Connie ANP Unavailable Unavailable OPAL, J Connie ANP Unavailable Unavailable OPAL, J Connie ANP Unavailable Unavailable OPAL, J Connie ANP Unavailable Unavailable OPAL, J Connie ANP Unavailable Unavailable OPAL, J Connie ANP Unavailable Unavailable OPAL, J Connie ANP Unavailable Unavailable OPAL, J Connie ANP Unavailable Unavailable OPAL, J Connie ANP Unavailable Unavailable OPAL, J Connie ANP Unavailable Unavailable OPAL, J Connie ANP Unavailable Unavailable OPAL, J Connie ANP Unavailable Unavailable OPAL, J Connie ANP Unavailable Unavailable OPAL, J Connie ANP Unavailable Unavailable OPAL, J Connie ANP Unavailable Unavailable OPAL, J Connie ANP Unavailable Unavailable OPAL, J Connie ANP Unavailable Unavailable OPAL, J Connie ANP Unavailable Unavailable OPAL, J Connie ANP Unavailable Unavailable OPAL, J Connie ANP Unavailable Unavailable OPAL, J Connie ANP Unavailable Unavailable OPAL, J Connie ANP Unavailable Unavailable OPAL, J Connie ANP Unavailable Unavailable OPAL, J Connie ANP Unavailable Unavailable OPAL, J Connie ANP Unavailable Unavailable OPAL, J Connie ANP Unavailable Unavailable OPAL, J Connie ANP Unavailable Unavailable OPAL, J Connie ANP Unavailable Unavailable OPAL, J Connie ANP Unavailable Unavailable OPAL, J Connie ANP Unavailable Unavailable OPAL, J Connie ANP Unavailable Unavailable OPAL, J Connie ANP Unavailable Unavailable OPAL, J Connie ANP Unavailable Unavailable OPAL, J Connie ANP Unavailable Unavailable OPAL, J Connie ANP Unavailable Unavailable OPAL, J Connie ANP Unavailable Unavailable OPAL, J Connie ANP Unavailable Unavailable OPAL, J Connie ANP Unavailable Unavailable OPAL, J Connie ANP Unavailable Unavailable POAL, J Connie ANP Unavailable Unavailable OPAL, J Connie ANP Unavailable Unavailable OPAL, J Connie ANP Unavailable Unavailable OPAL, J Connie ANP Unavailable Unavailable OPAL, J Connie ANP Unavailable Unavailable OPAL, J Connie ANP Unavailable Unavailable OPAL, J Connie ANP Unavailable Unavailable OPAL, J Connie ANP Unavailable Unavailable OPAL, J Connie ANP Unavailable Unavailable OPAL, J Connie ANP Unavailable Unavailable OPAL, J Connie ANP Unavailable Unavailable OPAL, J Connie ANP Unavailable Unavailable OPAL, J Connie ANP Unavailable Unavailable OPAL, J Connie ANP Unavailable Unavailable OPAL, J Connie ANP Unavailable Unavailable Dennis Spencer MD Unavailable Unavailable Dennis Spencer MD Unavailable Unavailable Dennis Spencer MD Unavailable Unavailable Spencer, Dennis Leigh MD Unavailable Unavailable Spencer, Dennis Leigh MD Unavailable Unavailable Spencer, L Reese MONCADA Unavailable Unavailable Spencer, L Reese MONCADA Unavailable Unavailable Spencer, L Reese MONCADA Unavailable Unavailable Spencer, L Reese MONCADA Unavailable Unavailable Spencer, L Reese MONCADA Unavailable Unavailable Spencer, Dennis Leigh MD Unavailable Unavailable Spencer, Dennis Leigh MD Unavailable Unavailable Spencer, Dennis Leigh MD Unavailable Unavailable Spencer, L Reese MONCADA Unavailable Unavailable Spencer, L Reese MONCADA Unavailable Unavailable Spencer, L Reese MONCADA Unavailable Unavailable Spencer, L Reese MONCADA Unavailable Unavailable Spencer, L Reese MONCADA Unavailable Unavailable Spencer, L Reese MONCADA Unavailable Unavailable Spencer, L Reese MONCADA Unavailable Unavailable Spencer, L Reese MONCADA Unavailable Unavailable Spencer, L Reese MONCADA Unavailable Unavailable Spencer, L Reese MONCADA Unavailable Unavailable Spencer, L Reese MONCADA Unavailable Unavailable Spencer, L Reese MONCADA Unavailable Unavailable Spencer, Dennis Leigh MD Unavailable Unavailable Spencer, Dennis Leigh MD Unavailable Unavailable Spencer, Dennis Leigh MD Unavailable Unavailable Spencer, Dennis Leigh MD Unavailable Unavailable Spencer, Dennis Leigh MD Unavailable Unavailable Spencer, Dennis Leigh MD Unavailable Unavailable Spencer, L Reese MONCADA Unavailable Unavailable Spencer, Dennis Leigh MD Unavailable Unavailable Spencer, Dennis Leigh MD Unavailable Unavailable Spencer, Dennis Leigh MD Unavailable Unavailable Spencer, Dennis Leigh MD Unavailable Unavailable Spencer, L Reese MONCADA Unavailable Unavailable Spencer, Dennis Leigh MD Unavailable Unavailable Spencer, Dennis Leigh MD Unavailable Unavailable Spencer, L Reese MONCADA Unavailable Unavailable Spencer, Dennis Leigh MD Unavailable Unavailable Spencer, Dennis Leigh MD Unavailable Unavailable Spencer, Dennis Leigh MD Unavailable Unavailable Spencer, Dennis Leigh MD Unavailable Unavailable Spencer, Dennis Leigh MD Unavailable Unavailable Spencer, Dennis Leigh MD Unavailable Unavailable Spencer, Dennis Leigh MD Unavailable Unavailable Spencer, L Reese MONCADA Unavailable Unavailable Spencer, L Reese MONCADA Unavailable Unavailable Spencer, L Reese MONCADA Unavailable Unavailable KRISHAN, SHANTA PA Unavailable Unavailable KRISHAN, SHANTA PA Unavailable Unavailable KRISHAN, SHANTA PA Unavailable Unavailable KRISHAN, SHANTA PA Unavailable Unavailable KRISHAN, SHANTA PA Unavailable Unavailable KRISHAN, SHANTA PA Unavailable Unavailable KRISHAN, SHANTA PA Unavailable Unavailable KRISHAN, SHANTA PA Unavailable Unavailable KRISHNA, SHANTA PA Unavailable Unavailable KRISHAN, SHANTA PA Unavailable Unavailable KRISHAN, SHANTA PA Unavailable Unavailable KRISHAN, SHANTA PA Unavailable Unavailable KRISHAN, SHANTA PA Unavailable Unavailable KRISHAN, SHANTA PA Unavailable Unavailable KRISHAN, SHANTA PA Unavailable Unavailable KRISHAN, SHANTA PA Unavailable Unavailable KRISHAN, SHANTA PA Unavailable Unavailable KRISHAN, SHANTA PA Unavailable Unavailable KRISHAN, SHANTA PA Unavailable Unavailable KRISHAN, SHANTA PA Unavailable Unavailable KRISHAN, SHANTA PA Unavailable Unavailable KRISHAN, SHANTA PA Unavailable Unavailable KRISHAN, SHANTA PA Unavailable Unavailable KRISHAN, SHANTA PA Unavailable Unavailable KRISHAN, SHANTA PA Unavailable Unavailable KRISHAN, SHANTA PA Unavailable Unavailable KRISHAN, SHANTA PA Unavailable Unavailable KRISHAN, SHANTA PA Unavailable Unavailable KRISHAN, SHANTA PA Unavailable Unavailable KRISHAN, SHANTA PA Unavailable Unavailable KRISHAN, SHANTA PA Unavailable Unavailable KRISHAN, SHANTA PA Unavailable Unavailable KRISHAN, SHANTA PA Unavailable Unavailable KRISHAN, SHANTA PA Unavailable Unavailable KRISHAN, SHANTA PA Unavailable Unavailable KRISHAN, SHANTA PA Unavailable Unavailable OPAL, J Connie ANP Unavailable Unavailable OPAL, J Connie ANP Unavailable Unavailable OPAL, J Connie ANP Unavailable Unavailable OPAL, J Connie ANP Unavailable Unavailable OPAL, J Connie ANP Unavailable Unavailable OPAL, J Connie ANP Unavailable Unavailable OPAL, J Connie ANP Unavailable Unavailable OPAL, J Connie ANP Unavailable Unavailable OPAL, J Connie ANP Unavailable Unavailable OPAL, J Connie ANP Unavailable Unavailable OPAL, J Connie ANP Unavailable Unavailable OPAL, J Connie ANP Unavailable Unavailable OPAL, J Connie ANP Unavailable Unavailable OPAL, J Connie ANP Unavailable Unavailable OPAL, J Connie ANP Unavailable Unavailable OPAL, J Connie ANP Unavailable Unavailable OPAL, J Connie ANP Unavailable Unavailable OPAL, J Connie ANP Unavailable Unavailable OPAL, J Connie ANP Unavailable Unavailable OPAL, J Connie ANP Unavailable Unavailable OPAL, J Connie ANP Unavailable Unavailable OPAL, J Connie ANP Unavailable Unavailable OPAL, J Connie ANP Unavailable Unavailable OPAL, J Connie ANP Unavailable Unavailable OPAL, J Connie ANP Unavailable Unavailable OPAL, J Connie ANP Unavailable Unavailable OPAL, J Connie ANP Unavailable Unavailable OPAL, J Connie ANP Unavailable Unavailable OPAL, J Connie ANP Unavailable Unavailable OPAL, J Connie ANP Unavailable Unavailable OPAL, J Connie ANP Unavailable Unavailable OPAL, J Connie ANP Unavailable Unavailable OPAL, J Connie ANP Unavailable Unavailable OPAL, J Connie ANP Unavailable Unavailable OPAL, J Connie ANP Unavailable Unavailable OPAL, J Connie ANP Unavailable Unavailable OPAL, J Connie ANP Unavailable Unavailable OPAL, J Connie ANP Unavailable Unavailable OPAL, J Connie ANP Unavailable Unavailable OPAL, J Connie ANP Unavailable Unavailable OPAL, J Connie ANP Unavailable Unavailable OPAL, J Connie ANP Unavailable Unavailable OPAL, J Connie ANP Unavailable Unavailable OPAL, J Connie ANP Unavailable Unavailable OPAL, J Connie ANP Unavailable Unavailable OPAL, J Connie ANP Unavailable Unavailable OPAL, J Connie ANP Unavailable Unavailable OPAL, J Connie ANP Unavailable Unavailable OPAL, J Connie ANP Unavailable Unavailable OPAL, J Connie ANP Unavailable Unavailable OPAL, J Connie ANP Unavailable Unavailable OPAL, J Connie ANP Unavailable Unavailable OPAL, J Connie ANP Unavailable Unavailable OPAL, J Connie ANP Unavailable Unavailable OPAL, J Connie ANP Unavailable Unavailable OPAL, J Connie ANP Unavailable Unavailable OPAL, J Connie ANP Unavailable Unavailable OPAL, J Connie ANP Unavailable Unavailable OPAL, J Connie ANP Unavailable Unavailable OPAL, J Connie ANP Unavailable Unavailable OPAL, J Connie ANP Unavailable Unavailable OPAL, J Connie ANP Unavailable Unavailable OPAL, J Connie ANP Unavailable Unavailable OPAL, J Connie ANP Unavailable Unavailable Felisa GAO MD Unavailable Unavailable Felisa GAO MD Unavailable Unavailable Felisa GAO MD Unavailable Unavailable Felisa GAO MD Unavailable Unavailable Felisa GAO MD Unavailable Unavailable Felisa GAO MD Unavailable Unavailable Felisa GAO MD Unavailable Unavailable Felisa GAO MD Unavailable Unavailable Felisa GAO MD Unavailable Unavailable Felisa GAO MD Unavailable Unavailable Felisa GAO MD Unavailable Unavailable Felisa GAO MD Unavailable Unavailable Felisa GAO MD Unavailable Unavailable Felisa GAO MD Unavailable Unavailable Felisa GAO MD Unavailable Unavailable Felisa GAO MD Unavailable Unavailable Felisa GAO MD Unavailable Unavailable Felisa GAO MD Unavailable Unavailable Felisa GAO MD Unavailable Unavailable Felisa GAO MD Unavailable Unavailable Felisa GAO MD Unavailable Unavailable Felisa GAO MD Unavailable Unavailable Felisa GAO MD Unavailable Unavailable Felisa GAO MD Unavailable Unavailable Felisa GAO MD Unavailable Unavailable SIMA, Felisa RAMOS MD Unavailable Unavailable SIMA, Felisa RAMOS MD Unavailable Unavailable SIMA, Felisa RAMOS MD Unavailable Unavailable SIMA, Felisa RAMOS MD Unavailable Unavailable SIMA, Felisa RAMOS MD Unavailable Unavailable SIMA, Felisa RAMOS MD Unavailable Unavailable SIMA, Felisa RAMOS MD Unavailable Unavailable SIMA, Felisa RAMOS MD Unavailable Unavailable SIMA, Felisa RAMOS MD Unavailable Unavailable SIMA, Felisa RAMOS MD Unavailable Unavailable SIMA, Felisa RAMOS MD Unavailable Unavailable SIMA, Felisa RAMOS MD Unavailable Unavailable SIMA, Felisa RAMOS MD Unavailable Unavailable SIMA, Felisa RAMOS MD Unavailable Unavailable SIMA, Felisa RAMOS MD Unavailable Unavailable SIMA, Felisa RAMOS MD Unavailable Unavailable SIMA, Felisa RAMOS MD Unavailable Unavailable SIMA, Felisa RAMOS MD Unavailable Unavailable SIMA, Felisa RAMOS MD Unavailable Unavailable SIMA, Felisa RAMOS MD Unavailable Unavailable SIMA, Felisa RAMOS MD Unavailable Unavailable SIMA, Felisa RAMOS MD Unavailable Unavailable SIMA, Felisa RAMOS MD Unavailable Unavailable SIMA, Felisa RAMOS MD Unavailable Unavailable SIMA, Felisa RAMOS MD Unavailable Unavailable SIMA, Felisa RAMOS MD Unavailable Unavailable SIMA, Felisa RAMOS MD Unavailable Unavailable SIMA, Felisa RAMOS MD Unavailable Unavailable SIMA, Felisa RAMOS MD Unavailable Unavailable SIMA, Felisa RAMOS MD Unavailable Unavailable SIMA, Felisa RAMOS MD Unavailable Unavailable SIMA, Felisa RAMOS MD Unavailable Unavailable SIMA, Felisa RAMOS MD Unavailable Unavailable SIMA, Felisa RAMOS MD Unavailable Unavailable SIMA, Felisa RAMOS MD Unavailable Unavailable SIMA, Felisa RAMOS MD Unavailable Unavailable SIMA, Felisa RAMOS MD Unavailable Unavailable SIMAFelisa MD Unavailable Unavailable SIMA, Felisa RAMOS MD Unavailable Unavailable SIMA, Felisa RAMOS MD Unavailable Unavailable SIMA, Felisa RAMOS MD Unavailable Unavailable SIMA, Felisa RAMOS MD Unavailable Unavailable SIMA, Felisa RAMOS MD Unavailable Unavailable SIMA, Felisa RAMOS MD Unavailable Unavailable SIMA, Felisa RAMOS MD Unavailable Unavailable SIMA, Felisa RAMOS MD Unavailable Unavailable SIMA, Felisa RAMOS MD Unavailable Unavailable SIMA, Felisa RAMOS MD Unavailable Unavailable SIMA, Felisa RAMOS MD Unavailable Unavailable SIMA, Felisa RAMOS MD Unavailable Unavailable SIMA, Felisa RAMOS MD Unavailable Unavailable SIMA, Felisa RAMOS MD Unavailable Unavailable SIMA, Felisa RAMOS MD Unavailable Unavailable SIMA, Felisa RAMOS MD Unavailable Unavailable SIMA, Felisa RAMOS MD Unavailable Unavailable SIMA, Felisa RAMOS MD Unavailable Unavailable Felisa GAO MD Unavailable Unavailable Felisa GAO MD Unavailable Unavailable Krysten, Christopher DO Unavailable Unavailable Krysten, Christopher DO Unavailable Unavailable [place], Christopher DO Unavailable Unavailable [place], Christopher DO Unavailable Unavailable Krysten, Christopher DO Unavailable Unavailable Krysten, Christopher DO Unavailable Unavailable Krysten, Christopher DO Unavailable Unavailable Krysten, Christopher DO Unavailable Unavailable Krysten, Christopher DO Unavailable Unavailable [place], Christopher DO Unavailable Unavailable Re-disclosure Warning The records that you are about to access may contain information from federally-assisted alcohol or drug abuse programs. If such information is present, then the following federally mandated warning applies: This information has been disclosed to you from records protected by federal confidentiality rules (42 CFR part 2). The federal rules prohibit you from making any further disclosure of this information unless further disclosure is expressly permitted by the written consent of the person to whom it pertains or as otherwise permitted by 42 CFR part 2. A general authorization for the release of medical or other information is NOT sufficient for this purpose. The Federal rules restrict any use of the information to criminally investigate or prosecute any alcohol or drug abuse patient.The records that you are about to access may contain highly sensitive health information, the redisclosure of which is protected by Article 27-F of the [facility] Public Health law. If you continue you may have access to information: Regarding HIV / AIDS; Provided by facilities licensed or operated by the [facility] Office of Mental Health; or Provided by the [facility] Office for People With Developmental Disabilities. If such information is present, then the following [facility] mandated warning applies: This information has been disclosed to you from confidential records which are protected by state law. State law prohibits you from making any further disclosure of this information without the specific written consent of the person to whom it pertains, or as otherwise permitted by law. Any unauthorized further disclosure in violation of state law may result in a fine or fdc sentence or both. A general authorization for the release of medical or other information is NOT sufficient authorization for further disc losure. Family History Family Member Name Family Member Gender Family Member Status Date o f Status Description Data Source(s) Unknown Male Problem [facility] ([facility] ) () Encounters Encounter Providers Location Date Indications Data Source(s ) Outpatient Attender: Vickey Muse MD Main Office 03/11/2021 01:15:00 PM EDT [facility] ([facility]) Outpatient Attender: RACHEL Roweer: RACHEL [facility]BF.[facility] 03/05/2021 07:19:33 AM EDT [facility] Outpatient Attender: RACHEL Holbrookerrer: RACHEL BUTTSBF 03/04/2021 10:52:21 AM EDT - 03/04/2021 12:15:04 PM EDT [facility] Outpatient Attender: RACHEL Forbes: RACHEL BUTTSBF.[facility] 03/04/2021 12:00:00 AM EDT [facility] Outpatient Attender: Rowdy Ramey 02/19/2021 10:40:00 AM EDT [facility] ([facility] ) Outpatient Attender: Connie Duckworth 07/2020 09:20:00 AM EDT [facility] ([facility] ) Outpatient Attender: Connie Duckworth 10:20:00 AM EDT [facility] ([facility] ) Outpatient Referrer: Connie ABRAMS-BF 12/02 08:28:05 AM EDT - 12/02/2020 09:13:[address] [facility] Outpatient Attender: RACHEL BUTTSBF 12/02/2020 07:35:13 AM EDT [facility] Office Visit Attender: Connie Duckworth 09:20:00 AM EDT [facility] ([facility] ) Outpatient Attender: RACHEL ABRAMS-BF 06/03/2020 12:00:00 AM EST [facility] Outpatient Attender: SHANTA pickard 05/07/2020 11:30:00 AM EST [facility] ([facility]) Outpatient Attender: Vickey Muse MD Main Office 05/02/2020 10:00:00 AM EST [facility] ([facility]) Outpatient Attender: Connie Vegalogisaías Duckworth 09:15:00 AM EDT [facility] ([facility] ) Outpatient Attender: Reese Spencer MD Physical Therapy 03/28/2020 1 0:00:00 AM EDT [facility] ([facility]) OFFICE OUTPATIENT NEW 30 MINUTES Attender: Bertrand Del [place] Physical Therapy 03/19/2020 02:20:00 PM EDT [facility] ([facility]) Immunizations Vaccine Date Status Description Data Source(s) Influenza, injectable, MDCK, preservative free, lidia valent 04/16/2020 10:35:00 AM EDT completed [facility] ([facility]) Medications Medication Brand Name Start Date Product Form Dose Route Admi nistrative Instructions Pharmacy Instructions Status Indications Reaction Description Data Source(s) Famotidine 40 MG Oral Tablet Famotidine 01/20/2021 12:00:00 AM EDT ORAL active [facility] ([facility]) atorvastatin 40 MG Oral Tablet Atorvastatin Calcium 12/31/2020 1 2:00:00 AM EDT ORAL active [facility] ( [facility]) Covid-19 vaccine, Unspecified 07/22/2020 12:00:00 AM EST completed [facility] ([facility]) Medication administered onsite Covid-19 vaccine, Unspecified 07/03/2020 12:00:00 AM EST completed [facility] ([facility]) Medication administered onsite Metformin hydrochloride 500 MG Oral Tablet metFORMIN ( GLUCOPHAGE) 500 MG tablet metFORMIN (GLUCOPHAGE) 500 MG tablet 05/30/2020 12:00:00 AM EST active TAKE 1 TABLET BY MOUTH ONCE KATHY Y AT DINNERTIME [facility] Methylprednisolone 4 MG Oral Tablet Methylprednisolone 04/21 12:00:00 AM EST ORAL active [facility] ([facility]) Suprep Bowel Prep Kit Suprep Bowel Prep Kit 05/02/2020 12:00:00 AM EST active [facility] ([facility]) Administration Of Flu Vaccine 04/16/2020 12:00:00 AM EDT completed [facility] ([facility]) Medication administered onsite Doxycycline Monohydrate 100 MG Oral Capsule Doxycycline [place] hydrate 04/16/2020 12:00:00 AM EDT ORAL active M [facility] ([facility]) Insurance Providers Payer name Policy type / Coverage type Policy ID Covered constitution party ID Covered constitution party's relationship to [place] Policy [place] Plan Information MEDICARE [id number] Olga [id number] Medicare Natl Govt Servic Medicare Primary [id number] Self 0 [id number] MEDICARE [id number] SP [id number] A MEDICARE [id number] SP [id number] MEDICARE [id number] SP [id number] [facility] [id number] Self 0 [id number] Medicare Natl Govt Servic Medicare Primary [id number] 2.16.840.1.593899.3.227.99.4595.4730.0 Self 3 [id number] Medicare Natl Govt Servic Medicare Primary [id number] 2.16.840.1.414814.3.227.99.4595.4730.0 Self 0 [id number] Medicare Natl Govt Servic Medicare Primary [id number] 2.16.840.1.703885.3.227.99.4595.4730.0 Self 3 [id number] Medicare Medicare Primary [id number] 2.16.840.1.328023.3.227. 99.143.19355.0 Self [id number] Medicare Natl Govt Servic Medicare Primary [id number] 2.16.840.1.867877.3.227.99.4595.4730.0 Self 0 [id number] Medicare Natl Govt Servic Medicare Primary [id number] Self [id number] Medicare Natl Govt Serv Medicare Primary [id number] Self [employer] [place] Medigap Part B [id number] Self [id number] [employer] [place] Medigap Part B [id number] 2.840.1.585488.3.227.99.4595.4730.0 Self 6 [id number] [employer] [place] Medigap Part B [id number] 2.16840.1.472470.3.227.99.4595.4730.0 Self 6 [id number] [employer] [place] Medigap Part B [id number] 2.16840.1.489036.3.227.99.4595.4730.0 Self 6 [id number] [employer] [place] Medigap Part B [id number] Self [employer] [place] Medigap Part B [id number] 2.16840.1.303498.3.227.99.4595.4730.0 Self 6 [id number] [employer] [place] Medigap Part B [id number] 2.16840.1.121948.3.227.99.4595.4730.0 Self 6 [id number] [employer] [place] Medigap Part B [id number] 2.840.1.139617.3.227.99.4595.4730.0 Self 6 [id number] [employer] Medigap Part B [id number] Self [employer] Medigap Part B [id number] Self [id number] [facility] Medicare [place] Commercial [id number] Self [id number] [facility] [employer] Commercial [id number] Self [id number] [facility] Medicare [place] Commercial [id number] 2.840.1.618036.3.227.99.4595.4730.0 Self [id number] [employer] [place] [id number] SP [id number] [employer] [place] Medigap Part B [id number] 2..1.833609.3.227.99.143.07269.0 Self 6 [id number] [employer] [place] Medigap Part B 87719 Self [employer] [place] Medigap Part B [id number] Self [id number] [employer] [place] Medigap Part B [id number] Self [id number] [employer] [place] Medigap Part B [id number] Self [id number] [employer] [place] Medigap Part B [id number] 2..1.038492.3.227.99.4595.4730.0 Self 6 [id number] [employer] [place] Medigap Part B [id number] 2..1.361674.3.227.99.4595.4730.0 Self 6 [id number] [employer] [place] Medigap Part B [id number] 2..1.477315.3.227.99.4595.4730.0 Self 6 [id number] [employer] [place] Medigap Part B [id number] 2..1.846950.3.227.99.4595.4730.0 Self 6 [id number] [employer] [place] Medigap Part B [id number] 2..1.682675.3.227.99.4595.4730.0 Self 6 [id number] [employer] [place] Medigap Part B [id number] 2..1.086065.3.227.99.4595.4730.0 Self 6 [id number] [employer] [place] Medigap Part B [id number] 2.16.840.1.515747.3.227.99.4595.4730.0 Self 6 [id number] [employer] [place] Medigap Part B [id number] 2.16.840.1.604833.3.227.99.4595.4730.0 Self 6 [id number] [employer] [place] Medigap Part B [id number] 2.16.840.1.688106.3.227.99.4595.4730.0 Self 6 [id number] [employer] [place] Medigap Part B [id number] 2.16.840.1.294861.3.227.99.4595.4730.0 Self 6 [id number] [employer] [place] Medigap Part B [id number] Self [id number] [employer] [place] Medigap Part B [id number] 2.16.840.1.340125.3.227.99.4595.4730.0 Self 6 [id number] [employer] [place] Medigap Part B [id number] 2.16.840.1.998480.3.227.99.4595.4730.0 Self 6 [id number] [employer] Medicare Health Maintenance Organization ([facility]) [id number] Self [id number] [facility] MEDICARE Medicare [id number] xxxxxxxxxxxx [id number] [facility] MEDICARE [id number] [facility] [id number] Medicare Blue o Commercial [id number] Self [id number] [employer] Medicare Health Maintenance Organization ([facility]) [id number] Self [id number] [employer] INS[employer]ANCE OF [place] [id number] SP [id number] [place] [id number] 91 First [facility] Medigap Part B [id number] 2.0.1.335359.3.227.99.6619.6711.0 Self 6 [id number] Medicare [facility] Medicare Primary [id number] 2.840.1.595774.3.227.99.6619.6711.0 Self 0 [id number] [place] [employer] Of [place] Commercial [id number] 2.0.1.189989.3.227.99.8646.560569.0 Self [id number] Medicare [facility] Medicare Primary [id number] 2.0.1.728199.3.227.99.8646.419891.0 Self [id number] Medicare [id number] Medicare [id number] [facility] [id number] Commercial I nsurance [id number] [employer] [place] No Fault Medigap Part B [id number] 2.0.1.609682.3.227.99.4595.4730.0 Self 3 [id number] [employer] [place] [employer] [place] Medigap Part B [id number] 2.0.1.593560.3.227.99.4595.4730.0 Self 3 [id number] [employer] [place] [employer] [place] Medigap Part B [id number] 2.0.1.841464.3.227.99.4595.4730.0 Self 3 [id number] MEDICARE [id number] A [employer] [place] [employer] [place]ault Medigap Part B [id number] 2.0.1.132935.3.227.99.4595.4730.0 Self 3 [id number] [employer] [place] [employer] [place]ault Medigap Part B [id number] 2.0.1.079555.3.227.99.4595.4730.0 Self 3 [id number] [employer] [place] [employer] Fault Medigap Part B [id number] 2.0.1.052577.3.227.99.4595.4730.0 Self 3 [id number] MEDICARE BLUE PPO 306 [id number] SP [id number] [employer] MEDICARE Medicare [facility] MEDICARE BLUE PPO 306 [id number] SP [id number] [employer] [place] [id number] SP [id number] C[employer] Medicare Medigap Part B [id number] Self [id number] [employer] Commercial [id number] Self [id number] [employer] [place] No Fault Medigap Part B 6827 Self [employer] Commercial [id number] Self Cigna Medicare Medigap Part B [id number] Self [employer] [place] No Fault Medigap Part B [id number] Self [id number] [facility] B [id number] S VYM [id number] [employer] [place] [id number] SP [id number] Medicare 1 Medicare FIRST [employer] [place] LIFE 0 Commercial I nsurance [employer] INS NO FAULT [id number] SP [id number] FIRST [employer] [place] -O/P [id number] 18 [id number] MEDICARE -O/P [id number] 18 [id number] FIRST [employer] [place] S [id number] S [id number] MEDICARE P [id number] S [id number] A [employer] [place] [id number] SP [id number] CIGNA MEDICARE ACCESS [id number] SP [id number] Problems, Conditions, and Diagnoses Code Display Name Description Problem Type Effective Dates Data Source(s) I48.20 Chronic atrial fibrillation, unspecified Chronic atrial fibrillation, unspecified Diagnosis 03/04/2021 10:52:21 AM EDT [facility] I25.10 Atherosclerotic heart diseas e of [place] coronary artery without angina pectoris Atherosclerotic heart disease of [place] Diagnosis 03/04/2021 10:52:21 AM EDT [facility] I35.0 Nonrheumatic aortic (valve) stenosis Nonrheumati c aortic (valve) stenosis Diagnosis 03/04/2021 10:52:[address] [facility] [id number] Abdominal pain Abdominal pain Problem 03/11/2021 12:00: 00 AM EDT [facility] ([facility]) [id number] Screening for malignant neoplasm of colo n Screening for malignant neoplasm of colon Problem 05/02/2020 12:00:00 AM EST [facility] ([facility]) Surgeries/Procedures Procedure Description Date Indications Data Source(s) OFFICE OUTPATIENT VISIT 25 MINUTES 03/11/2021 12:00:00 AM EDT [facility] ([facility]) OFFICE OUTPATIENT VISIT 25 MINUTES 02/19/2021 12:00:00 AM EDT [facility] ([facility]) OFFICE OUTPATIENT VISIT 15 MINUTES 01/20/2021 12:00:00 AM EDT [facility] ([facility]) OFFICE OUTPATIENT VISIT 25 MINUTES 12/31/2020 12:00:00 AM EDT [facility] ([facility]) Chronic Care MGMT 20 Mins Clinical Staff Time Per Calendar M [facility] 12/19/2020 12:00:00 AM EDT [facility] ([facility] ) Chronic Care MGMT 20 Mins Clinical Staff Time Per Calendar M [facility] 10/23/2020 12:00:00 AM EDT [facility] ([facility] ) OFFICE OUTPATIENT VISIT 25 MINUTES 10/16/2020 12:00:00 AM EDT [facility] ([facility]) Chronic Care MGMT 20 Mins Clinical Staff Time Per Calendar M [facility] 09/03/2020 12:00:00 AM EDT [facility] ([facility] ) Complex Chronic Care Management SVC 1St 60 Min 021 12:00:00 AM EST [facility] ([facility]) Complex Chronic Care MGMT Service Ea Addl 30 Min 07/10 12:00:00 AM EST [facility] ([facility]) Colonoscopy 05/20/2020 12:00:00 AM EST M EDISSAC ([facility]) COLSC FLX PROX SPLENIC FLXR RMVL LES SNARE TQ 05/20/20 12:00:00 AM EST [facility] ([facility]) X-Ray Spine Lumbosacral Complete Inc Bending Views Min Of 6 03/28/2020 12:00:00 AM EDT [facility] ([facility]) Needle electromyography, each extremity, with related paraspinal areas, when performed, done with nerve conduction, amplitude and latency/velocity study; complete, five or more muscles studied, innervated by three or more nerves or four or more spinal levels (list separately in addition to the code for primary procedure). 03/19/2020 12:00:00 AM EDT MEDEN T ([facility]) 22725 Nerve conduction studies 13 or more studies NEW 201203/19/2020 12:00:00 AM EDT [facility] ([facility]) Results ID Date Data Source [id number] 03/05/2021 01:17:01 PM [facility] INFORMATIONPatient MRN Name Date of Age Gend*PT [id number] Nahun De Oliveira 1935 85 years M ---PT Location Admission Date/Time Visit ID Attending Provider --- --- --- Rachel Gao MD([id number]) EPI ID CSN Admitting Provider [id number] ---Cardiology History and PhysicalName: Nahun De Oliveira Gender: maleDate of : 1935 Age: 85 yearsPrimary Care Provider / Referring Physician: Connie Joseph NPCardiology Telemedicine VisitPatient was identified by name and date of .Verbal consent was obtained from the patient for this telemedicine visit.Patient is aware of the risks, limitations, and benefits of a telemedicinevisit.This telemedicine assessment was conducted remotely with the assistance ofelectronFlipasteommunication technology: Telephone On ly Codes 00063: 21-30 minutes of medicaldiscussion: Telephone OnlyCurrent HistoryChief Complaint: This is a Telemedicine visitHPI:This patient is a 85 years male with the following updated problem list:1. Chronic atrial fibrillation: Patient is chronically anticoagulated due to ahigh chads2-vasc2 score, He was found to have a atrial appendage clot by JOSE MANUEL anddid not undergo cardioversion until he was anticoagulated and then he underwentcardioversion which was unsuccessful2. Essential hypertension3. Hyperlipidemia4. Sleep apnea uses CPAP5. Coronary artery disease: Status post coronary artery bypass grafting . Aortic stenosis: Followed with regular echocardiographyThis is a follow up After ECHO, recent fall due to loss of balance. He has beenfound to be anemic and workup in progress. He is following with [facility] General Denies dizziness or lightheadedness.. Lost weight, no appetite HEENT Denies any loss or change of vision. Denies tinnitus. Respiratory Denies PND, orthopnea, BLUM, hemoptysis, cough, or shortness ofbreath. Cardiac Denies chest pain or pressure, denies palpitations GI Denies melena, hematochezia, nausea, or vomiting. Has some abdominal pains MS Denies any lower extremity edema. Neuro Denies speech, motor, or sensory impairment. Psych Denies depression or anxiety. Endo Denies polyuria or polydipsia, denies temperature intolerance. 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 cardiac Hypercholesteremia MCFP current use of anticoagulant Xarelto Macular degeneration Sleep apnea CPAPPast Surgical History:Procedure Laterality Date APPENDECTOMY CARDIOVERSION N/A 11/15/2018 Procedure: CARDIOVERSION; Surgeon: Torito Escalona MD; Laterality: N/A;[id number] CATARACT EXTRACTION, BILATERAL IOLs CORONARY ARTERY BYPASS GRAFT HERNIA REPAIR LAPAROSCOPIC CHOLECYSTECTOMY N/A 02/24/2019 Procedure: CHOLECYSTECTOMY, LAPAROSCOPIC; Surgeon: Mario Aguillon MD;Laterality: N/A;Family HistoryProblem Relation Age of Onset Heart disease Mother Heart defect Father Atrial fibrillation Son Hypertension SonSocial HistorySocioeconomic History Marital status: Spouse name: Not on file Number of children: Not on file Years of education: Not on file Highest education level: Not on fileOccupational History Not on fileTobacco Use Smoking status: Never Smoker Smokeless tobacco: Never UsedSubstance and Sexual Activity Alcohol use: No Drug use: No Sexual activity: Not on fileOther Topics Concern Not on fileSocial History Narrative Not on fileSocial Determinants of HealthFinancial Resource Strain: Difficulty of Paying Living Expenses:Food Insecurity: Worried About Running Out of Food in the Last Year: Ran Out of Food in the Last Year:Transportation Needs: Lack of Transportation (Medical): Lack of Transportation (Non-Medical):Physical Activity: Days of Exercise per Week: Minutes of Exercise per Session:Stress: Feeling of Stress :Social Connections: Frequency of Communication with Friends and Family: Frequency of Social Gatherings with Friends and Family: Attends Orthodox Services: Active Member of Clubs or Organizations: Attends Club or Organization Meetings: Marital Status:Intimate Partner Violence: Fear of Current or Ex-Partner: Emotionally Abused: Physically Abused: Sexually Abused:Medications and AllergiesALLERGIES/SENSITIVITIES: Patient has no known drug allergies.Current Outpatient Medications: amoxicillin (AMOXIL) 500 MG capsule, Take 2,000 mg by mouth once as needed(prior to dental procedures), Disp: , Rfl: aspirin EC 81 MG EC tablet, Take 81 mg by mouth daily, Disp: , Rfl: atorvastatin (LIPITOR) 80 MG tablet, Take 40 mg by mouth nightly , Disp: ,Rfl: DAILY GRZEGORZ (THERAGRAN) per tablet, Take 1 tablet by mouth daily, Disp: , Rfl: digoxin (LANOXIN) 250 MCG tablet, Take 250 mcg by mouth nightly, Disp: , Rfl: diltiazem (CARDIZEM CD) 180 MG 24 hr capsule, Take 180 mg by mouth daily,Disp: , Rfl: GLUCOSAMINE-CHONDROITIN PO, Take 1 tablet by mouth daily , Disp: , Rfl: metFORMIN (GLUCOPHAGE) 500 MG tablet, TAKE 1 TABLET BY MOUTH ONCE DAILY ATDINNERTIME, Disp: , Rfl: metoprolol succinate (TOPROL-XL) 50 MG 24 hr tablet, Take 50 mg by mouthdaily, Disp: , Rfl: nitroglycerin (NITROSTAT) 0.4 MG SL tablet, Place 0.4 mg under the tongueevery 5 (five) minutes as needed for chest pain, Disp: , Rfl: Potassium 99 MG TABS, Take 1 tablet by mouth daily , Disp: , Rfl: rivaroxaban (XARELTO) 20 MG TABS, Take 20 mg by mouth nightly , Disp: , Rfl: Vitamin D (CHOLECALCIFEROL) 1000 units tablet, Take 1,000 Units by m outhnightly, Disp: , Rfl: furosemide (LASIX) 40 MG tablet, Take 1 tablet (40 mg total) by mouth daily,Disp: 30 tablet, Rfl: 2 Multiple Vitamins-Minerals (ICAPS AREDS 2) CAPS, Take 1 capsule by mouth 2(two) times a day , Disp: , Rfl:PhysicalPHYSICAL EXAM: Deferred due to Telemedicine encounterHt 1.803 m (5' 11") | Wt 83 kg (183 lb) | BMI 25.52 kg/m DiagnosticsLabNoneImaging/Testing:ECHO:1. Left ventricular cavity size is normal with Mild increase in wallthickness.2. LV systolic function is normal with resting estimated ejection fraction is55-60 %.3. The left ventric ular wall motion is normal 4. LV diastolic function is abnormal with elevated filling pressure.5. Left atrial size is severely dilated .6. Estimated PA pressure is 36 mm hg .7. 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 Aortic valve V max is 3.90 M/Sec, Max/ Mean Gradient 61/38 mm hg, DI= 0.26consistent with moderate Aortic stenosis .Mild aortic regurgitationEKG: NoneAssessment & PlanASSESSMENT/PLAN:1. CAD: No symptoms and knows to call if any symptoms and 911 for emergencies2. : Not quite in need of AVR. His mean gradient is 38 mmHg. We discussedsymptoms and he will let us know. We will recheck ECHO ib 6 months3. AF: on Xarelto for high CHADS score4. Weight loss and abdominal pains: awaiting GI work upI have spent 15 minutes with the patient, counseling/coordinating the patient'scare.I discussed the above listed diagnoses and discussed Results of diagnostictesting, Prognosis, Management option risks and benefits, Treatment/managementinstructions, Compliance and Risk Factor ReductionFollow up has been arranged and the patient knows to call if any issues arisebetween now and then, all question were answered.Signature: Rachel Gao MDDate: March 05, 2021Time: 1:04 PMThis document or parts of this document, were dictated using [employer]. A reasonable attempt at proofreading has been made to minimize errors.Please call with any questions or corrections. Name Value Range Interpretation Code Description Data Nahomi rce(s) Supporting Document(s) ID Date Data Source [id number] 03/04/2021 12:27:50 PM EDT [facility] Name Value Range Interpretation Code Description Data Nahomi rce(s) Supporting Document(s) &PDF [facility] BSEBLf7zUxYNWyFv65/ULWlxLJWcb1HpXOrlDHm7FSppSTPvE6ZfzHgzMYvIZ4BPI8PZLCxTRuJTDCHK Dcm SdnJ5oBDWhnWMdV6svdWVxfsYYv9Daw0CmlGrpnhxYWiMeBk8PXlOfTP8bkj3RHTDrEN0sjq1FMBT9QU 6IoBx4FOPfE2OwKUVkYDJfm6ZyKR2DDV6hwBnfTgKcXE5+XMtdXAN3jiYepH3CFRKDBp1v36BL/n5A/8 Blaise+XSQNv5aY6Dw7Zw2Aq8CKvMtRnyuhYkBgQCg6Of [file] ICAgICAgICAgICAgICAgICAgICAgICAgICAgICAgIC AgICAgICAgICAgICAgICAgICAgICAgICANCiAgICAgICAgICAgICAgICAgICAgICAgICAgICAgICAgIC AgICAgICAgICAgICAgICAgICAgICAgICAgICAgICAgICAgICAgICAgICAgICAgICAgICAgICAgICAgIC AgICAgICANCiAgICAgICAgICAgICAgICAgICAgICAg ICAgICAgICAgICAgICAgICAgICAgICAgICAgICAgICAgICAgICAgICAgICAgICAgICAgICAgICAgICAg ICAgICAgICAgICAgICAgICANCiAgICAgICAgICAgICAgICAgICAgICAgICAgICAgICAgICAgICAgICAg ICAgICAgICAgICAgICAgICAgICAgICAgICAgICAgIC AgICAgICAgICAgICAgICAgICAgICAgICAgICANCiAgICAgICAgICAgICAgICAgICAgICAgICAgICAgIC AgICAgICAgICAgICAgICAgICAgICAgICAgICAgICAgICAgICAgICAgICAgICAgICAgICAgICAgICAgIC AgICAgICAgICANCiAgICAgICAgICAgICAgICAgICAg ICAgICAgICAgICAgICAgICAgICAgICAgICAgICAgICAgICAgICAgICAgICAgICAgICAgICAgICAgICAg ICAgICAgICAgICAgICAgICAgICANCiAgICAgICAgICAgICAgICAgICAgICAgICAgICAgICAgICAgICAg ICAgICAgICAgICAgICAgICAgICAgICAgICAgICAgIC AgICAgICAgICAgICAgICAgICAgICAgICAgICAgICANCiAgICAgICAgICAgICAgICAgICAgICAgICAgIC AgICAgICAgICAgICAgICAgICAgICAgICAgICAgICAgICAgICAgICAgICAgICAgICAgICAgICAgICAgIC AgICAgICAgICAgICANCiAgICAgICAgICAgICAgICAg ICAgICAgICAgICAgICAgICAgICAgICAgICAgICAgICAgICAgICAgICAgICAgICAgICAgICAgICAgICAg ICAgICAgICAgICAgICAgICAgICAgICANCiAgICAgICAgICAgICAgICAgICAgICAgICAgICAgICAgICAg ICAgICAgICAgICAgICAgICAgICAgICAgICAgICAgIC AgICAgICAgICAgICAgICAgICAgICAgICAgICAgICAgICANCjw/jDUdU7kivGAlibP8S5zaYk5IZj1RRY 7my1NnZBFuZEwthsMyWjsCPtWoKZRzSbpGWnn9ULkjGM6GnSWiH2QsS4EcDXlbCP5QBSGyKUWgdEAkSV CjMJKiOeV3ECWhDPlrVC2PzFPnEMpbUHZxRGJsPkSq VZNzSVFoGHSpUTEqXIMIDW2EQfWaO8QtkK72HXXRPl7+AJaqcjMdDkrOGwWiJVLuo7KrZWv9YZ5LXNEj AUclHU6LEDGhyN4kFWifML5EYkC6YFZbWAMVAiJiH16rtREwQBq7Y5BiLmCuMOEnMohdGIXtGQwwWbBj ZXMgWyBdDQogID4+ID4+XJzrPN4JAVdluwDvDCGzCj 2NFVTpHXA4JFMroNUyYYDvPBMISMnbTW0JnXGdXUQ4mX1fABkbWQScVMVzK8eOXxPmmJjqUA50fPgzgx VsbCBdDQo+Hu5AIA2sr8JxHGj6kgCvYHmsUQGfDEfhJZQkRTXtQTScPBO2BEQ2CAAYIuGrHUDiQDIuLT zyKFNlPWAklp9HBHQxEYB4SQUpVeZlGWZrHVMtCTvt ONSaLKNqWZU8PWZeQVLoTG9FKiQyNMPuWSIvYImfPCChIZOoyk1UNSXaIDWlWtZuOHSbZPHuHPFpGMpk NLUaBUWlYPM2QHZzEBEeEV8GFmVsRWMoFKB7CQdoEGQhTIJgys1SBVDgZDMuFSBuCaSqFAJbTJRuLQrl XZQqUQU3XQs2ESBqOINbPO1QTdNeWKZqRYv0ZEHvUI MkVLWjms5JTULoUTEsFTamKyUaIMJsALVfMSdkMNWeRGO7VFEqRHZjQITxTJ9YCxAmXNHoODs8JFNcCO WoFCZkov1AEHPuHUTnPWE4SGCkHPBpUGKsFEvhEPOkGFAtPfzfGCOvBLWuYL4VGaSlFMMmMKNgMHGuJR SpPBSnuq4RDFYhIGDnRKV7BkLdGFNtQVImIUktHHRj BIJjLkOoYWSbCGLjSC7KTwJhXOPhZLY5NDwpSCZxASSftk2EWMCtTVMyRhy0OxObIAAzKBPeOMfnJPJu LHQkHChkSDWkOJNhDF8UBcKcALOoTQW7IdCeSMIqPYHelc5LOMPpEVQzATEzChVkVJFsGTHeTAeoEYAc YZI7TeMoSOQpMIAlJQ5ZKmZeMOKaKNB1ZKziGKWbWG Tntn5DPKLiBBAvBjwdKsBoBCVgEUPuJOhfODRrDNC7SXJ6FRWiFYUxTS4WUeLbCEKuUsO1HVEbNZKzIM Pxin9DVALzGWMqGJUdPADhDCErDZTzIWllIBHhIWS4CXa9OTHkMPPjAQ6HPyKhHYWuFfo1GGKlLGQdQI Mafz5BKSNyEILyVaUzWRVrLXIsSAJtQDrnPXGsJFK7 YFP5HEIuWCJqAL4RBxZqTZGmZhjpReqyFVNgLECqni9YXUPpCOG1UcJsMSJcCBChPDPyDKzrXIZjKNA1 HjF8LJWwEAIuHZ9HAbWoGSDqYLshDyanMXEuUSDaro5DPYBcUGY8JwO4IGIgFWDkXCIoRWyyNTSdHIV6 VSMqURSuTFUvNP9NQlFqOGKmPAgtLHYuDNJhQZAsyy 9YIMYnLFL0XFK6YANaCKBjKGCiSRflQKRyPQOiEGUdQQZtCIDxAX5GYzHrLNueQDMKZig2IKwuW9r8SU T5Hy8QY5Yrp0XoUXSiKMHMIOwdDV4tfePnFTWdSr5SU5lOKat5AeKuL4YyGHzxLkBhKUI4G9IwIqGwSf luPKRrNQZpFl3aCYG4RAP4JJZwOEExVJGqNvjgIBA0 WxSbBYVbTPL2S3XzFiNbPS5BXc9SFsA6AIH0uVSfEp9PZaY6NlfFDhXvYY7XHCc= ID Date Data Source [id number] 02/19/2021 11:13:00 AM EDT [facility] ([facility]) Name Value Range Interpretation Code Description Data Nahomi rce(s) Supporting Document(s) Total Iron Binding Capacity 288 ug/dL 250-450 ME D[facility] ([facility]) Iron (Fe) 39 ug/dL 65-175 [facility]) Percent Saturation 13.5 % 19.7-50.0 [facility] ([facility]) ID Date Data Source [id number] 02/19/2021 11:13:00 AM EDT [facility] ([facility]) Name Value Range Interpretation Code Description Data Nahomi rce(s) Supporting Document(s) It Serum Interpretation Laboratory test result [facility] ([facility]) MONOCLONAL IGG LAMBDA Immunotyping Serum Igg Laboratory test result [facility] ([facility]) Immunotyping Serum Lambda Laboratory test result [facility] ([facility]) Laboratory test finding (navigational concept) Laboratory test result [facility] ([facility]) REV'D BY Nola VICTORIA ID Date Data Source [id number] 02/19/2021 11:13:00 AM EDT [facility] ([facility]) Name Value Range Interpretation Code Description Data Nahomi rce(s) Supporting Document(s) Free [place] Light Chains Serum 26.4 mg/L 3.3-19.4 [facility] ([facility]) Free Lambda Light Chains Serum 35.4 mg/L 5.7-26.3 [facility] ([facility]) [place]/Lambda Ratio Serum 0.75 0.26-1.65 [facility] T ([facility]) Performed at: RN - [facility] [address] [id number] Transfer Station Attendant: Alvina Puckett MD, Phone: [phone] ID Date Data Source [id number] 02/19/2021 11:13:00 AM EDT [facility] ([facility]) Name Value Range Interpretation Code Description Data Nahomi rce(s) Supporting Document(s) Albumin % 51.5 % 55.8-66.1 [facility]) Dkigb-2-Fjqopesr % 7.1 % 2.9-4.9 [facility]) Qtqic-8-Chvpskhis % 16.4 % 7.1-11.8 [facility] Jsuj-4-Zrulfmeob % 5.5 % 4.7-7.2 [facility] Albumin 3.61 GM/DL 3.29-5.55 [facility]) Cghh-6-Fwmhtijsl % 5.9 % 3.2-6.5 [facility] Gamma Globulin % 13.6 % 11.1-18.8 [facility] ([facility]) Cqtus-1-Abovqkvvg 1.15 GM/DL 0.42-0.99 [facility] ([facility]) Allbq-3-Zrdzauqlt 0.50 GM/DL 0.17-0.41 [facility] ([facility]) Mcta-2-Sbvdwgycw 0.39 GM/DL 0.28-0.60 [facility] ([facility]) Total Protein 7.0 GM/DL 6.4-8.2 [facility] ([facility]) Gamma Globulins 0.95 GM/DL 0.65-1.58 [facility] ([facility]) Kpph-1-Khrzkvsvw 0.41 GM/DL 0.19-0.55 [facility] ([facility]) Spep Interpretation For RFX Laboratory test result [facility] ([facility]) A SERUM IMMUNOTYPE HAS BEEN REFLEX ADDED TO THIS SPECIMEN. M-SPIKE NOTED IN LATE GAMMA REGION. CONCENTRATION = 0.32 GM/DL Laboratory test finding (navigational concept) Laboratory test result [facility] ([facility]) REV'D BY Nola VICTORIA ID Date Data Source [id number] 02/19/2021 11:13:00 AM EDT [facility] ([facility]) Name Value Range Interpretation Code Description Data Nahomi rce(s) Supporting Document(s) Ferritin [Mass/volume] in Serum or Plasma 253 ng/mL 26-388 [facility] ([facility]) ID Date Data Source [id number] 02/19/2021 11:11:00 AM EDT [facility] ([facility]) Name Value Range Interpretation Code Description Data Nahomi rce(s) Supporting Document(s) Urine Color Laboratory test result [facility] ([facility]) Urine Appearance Laboratory test result [facility] ([facility]) Urine PH 6.5 units 5.0-9.0 [facility]) Urine Leukocytes Laboratory test result [facility] ([facility]) Specific gravity of Urine 1.020 1.005-1.030 [facility] ([facility]) Urine Blood Laboratory test result [facility] ([facility]) Urine Protein Laboratory test result 0-0 [facility] ([facility]) Urine Nitrite Laboratory test result [facility] ([facility]) Glucose [Presence] in Urine Laboratory test result [facility] ([facility] Urine Ketone Laboratory [facility]) Bilirubin.total [Mass/volume] in Serum or Plasma Laboratory test resu lt [facility] ([facility]) Urine Urobilinogen 0.2 mg/dL 0.2-1.0 [facility] ([facility]) ID Date Data Source [id number] 02/19/2021 11:11:00 AM EDT [facility] ([facility]) Name Value Range Interpretation Code Description Data Nahomi rce(s) Supporting Document(s) Urea nitrogen [Mass/volume] in Serum or Plasma 13 mg/dL 7-18 [facility] ([facility]) Glucose [Mass/volume] in Serum or Plasma 111 mg/dL 74-99 [facility] ([facility]) 100-125 mg/dL PRE-DIABETES/FASTING >126 mg/dL DIABETES/FASTING Sodium [Moles/volume] in Serum or Plasma 139 meq/L 136-145 [facility] ([facility]) Creatinine 0.8 mg/dL 0.6-1.3 [facility] ([facility]) Potassium [Moles/volume] in Serum or Plasma 4.2 meq/L 3.5-5.1 [facility] ([facility]) Chloride [Moles/volume] in Serum or Plasma 103 meq/L 98-107 [facility] ([facility]) Carbon dioxide, total [Moles/volume] in Serum or Plasma 26 meq/L 21 -32 [facility] ([facility]) Calcium [Mass/volume] in Serum or Plasma 9.2 mg/dL 8.5-10.1 [facility] ([facility]) Alkaline phosphatase isoenzyme [Units/volume] in Serum or Pl asma 111 mg/dL 46-116 [facility] Total Bilirubin 1.0 mg/dL 0.2-1.0 [facility] ([facility]) Albumin [Mass/volume] in Serum or Plasma 3.5 g/dL 3.4-5.0 [facility] ([facility]) Aspartate aminotransferase [Enzymatic activity/volume] in Serum or Plasma 34 U/L 15-37 [facility] ([facility] ) Alanine aminotransferase [Enzymatic activity/volume] in Seru m or Plasma 28 U/L 12-78 [facility] ([facility]) Proteinase 3 Ab [Units/volume] in Serum 7.0 g/dL 6.4-8.2 [facility] ([facility]) A/G Ratio 1.00 CALC 1.00-1.90 [facility]) Glomerular filtration rate/1.73 sq M pre dicted among non-blacks [Volume Rate/Area] in Serum or Plasma by Creatinine-based formula (MDRD) Laboratory test result [facility] ([facility] ) Glomerular filtration rate/1.73 sq M pre dicted among blacks [Volume Rate/Area] in Serum or Plasma by Creatinine-based formula (MDRD) Laboratory test result [facility] ([facility] <content>CHRONIC KIDNEY DISEASE STAGING PER NKF</content>
<content></content>
<content>STAGE I & II GFR >= 60 NORMAL TO MILDLY DECREASED</content>
<content>STAGE III GFR 30-59 MODERATELY DECREASED</content>
<content>STAGE IV GFR 15-29 SEVERELY DECREASED</content>
<content>STAGE V GFR <15 VERY LITTLE GFR LEFT</content>
<content>ESRD GFR <15 ON FABRICATION WELDER</content>
<content></content> ID Date Data Source [id number] 02/19/2021 11:11:00 AM EDT [facility] ([facility] Name Value Range Interpretation Code Description Data Nahomi rce(s) Supporting Document(s) Leukocytes [#/volume] in Blood by Automated count 5.6 x10*3/UL 4.1-10 .9 [facility] ([facility]) NOTE: CBC VERIFIED Hemoglobin [Mass/volume] in Blood 11.3 g/dL 12.0-18.0 [facility] ([facility]) Erythrocytes [#/volume] in Blood by Automated count 3.66 x10*6/UL 4.2 0-6.30 [facility] ([facility]) Hematocrit [Volume Fraction] of Blood by Automated count 32.9 % 3 7.0-51.0 [facility] ([facility]) MCHC 34.3 g/dL 31.0-38.0 [facility]) MCV 89.9 fL 80.0-97.0 [facility] MCH 30.8 pg 26.0-32.0 [facility] Erythrocyte distribution width [Ratio] by Automated count 12.4 % 11.6-13.7 [facility] ([facility]) Platelets [#/volume] in Blood by Automated count 271 x10*3/UL 140-440 [facility] ([facility]) Mid % 3.7 % 1.7-9.3 [facility] MPV 7.1 FL 7.8-11.0 [facility]) Lymph % 13.4 % 10.0-58.5 [facility] Neut % 82.9 % 37.0-92.0 [facility]) Lymph # 0.7 x10*3/UL 0.6-4.1 [facility] ([facility]) Mid # 0.2 x10*3/UL 0.1-0.6 [facility] ([facility]) Neut # 4.7 x10*3/UL 2.0-7.8 [facility] ([facility]) ID Date Data Source [id number] 02/14/2021 08:10:00 AM EDT [facility] ([facility] Name Value Range Interpretation Code Description Data Nahomi rce(s) Supporting Document(s) Influenza A Amplification Laboratory test result [facility] Negative results do not preclude influen za or RSV virus infection and should not be used as the sole basis for treatment or other patient management decisions. Influenza B Amplification Laboratory test result [facility] ([facility]) Negative results do not preclude influen za or RSV virus infection and should not be used as the sole basis for treatment or other patient management decisions. RSV Amplification Laboratory test result [facility] ([facility]) Negative results do not preclude influen za or RSV virus infection and should not be used as the sole basis for treatment or other patient management decisions. Laboratory test finding (navigational concept) Laboratory test result [facility] ([facility]) A false negative result may occur if a s pecimen is improperly collected, transported or handled. False [...] pathogens. DISCLAIMER: Testing was performed using the [employer] SARS-CoV-2 test. This test was developed and its performance characteristics determined by [employer]. This test has not been FDA cleared [...] the authorization is terminated or revoked sooner. ID Date Data Source [id number] 02/14/2021 08:10:00 AM EDT [facility] Name Value Range Interpretation Code Description Data Nahomi rce(s) Supporting Document(s) SARS coronavirus 2 RNA [Presence] in Res piratory specimen by JULIOCESAR with probe detection NEGATIVE [facility] This lab was ordered by [facility] a nd reported by [facility]. ID Date Data Source [id number] 02/13/2021 11:44:00 PM EDT [facility] ([facility]) Name Value Range Interpretation Code Description Data Nahomi rce(s) Supporting Document(s) Bedside Glucose 123 mg/dL 83-110 [facility] ([facility]) ID Date Data Source [id number] 02/13/2021 11:33:00 PM EDT [facility] ([facility]) Name Value Range Interpretation Code Description Data Nahomi rce(s) Supporting Document(s) aPTT in Blood by Coagulation assay 55.6 s 25.9-37.0 [facility] ([facility]) Lactate [Mass/volume] in Serum or Plasma 1.2 mmol/L 0.4-2.0 [facility] ([facility]) Y/N query for Sepsis Lactate Rule: Y ID Date Data Source [id number] 02/13/2021 11:33:00 PM EDT [facility] ([facility]) Name Value Range Interpretation Code Description Data Nahomi rce(s) Supporting Document(s) White Blood Count 6.6 10 4.0-10.0 [facility] ([facility]) Red Blood Count 3.51 10 4.30-6.10 [facility] ([facility]) Hemoglobin 11.1 g/dL 13.5-17.5 [facility] Mean Corpuscular Volume 94.0 fl 80.0-96.0 [facility] ([facility]) Hematocrit 33.0 % 42.0-52.0 [facility]) Mean Corpuscular HGB Conc 33.6 g/dL 32.0-36.5 [facility] ([facility]) Mean Corpuscular Hemoglobin 31.6 pg 27.0-33.0 [facility] ([facility]) Red Cell Distribution Width 12.3 % 11.5-14.5 [facility] ([facility]) Neutrophils % 71.8 % 36.0-66.0 [facility] ([facility]) Platelet Count, Automated 135 10 150-450 [facility] ([facility]) Eos % 0.2 % 0.0-3.0 [facility]) [place] % 15.0 % 2.0-8.0 [facility]) Lymph % 11.4 % 24.0-44.0 [facility]) Nucleated Red Blood Cell % 0.0 % 0-0 [facility] ([facility]) Baso % 0.5 % 0.0-1.0 [facility]) Immature Granulocyte % 1.1 % 0-3.0 [facility] ([facility]) Lymph # 0.8 10 1.5-5.0 [facility]) [place] # 1.0 10 0.0-0.8 [facility]) Neutrophils # 4.7 10 1.5-8.5 [facility] ([facility]) Baso # 0.0 10 0.0-0.2 [facility]) Eos # 0.0 10 0.0-0.5 [facility] ([place]) ID Date Data Source [id number] 02/13/2021 11:33:00 PM EDT [facility] ([facility]) Name Value Range Interpretation Code Description Data Nahomi rce(s) Supporting Document(s) Hemoglobin A1c 5.7 % [facility] <content>REFERENCE RANGES:</content><br/ ><content></content>
<content><=5.6% NORMAL</content>
<content>5.7-6.4% SUGGESTS IMPAIRED GLUCOSE METABOLISM/PREDIABETIC</content>
<content>>= 6.5% ABNORMAL</content>
<content></content> Estimated Average Glucose 117 mg/dL 60-110 [facility] ([facility] ID Date Data Source [id number] 02/13/2021 11:33:00 PM EDT [facility] ([facility] Name Value Range Interpretation Code Description Data Nahomi rce(s) Supporting Document(s) Prothrombin Time 25.2 s 12.7-14.5 [facility] ([facility] Inr 2.24 [facility] ([place]) THERAPUTIC HUMAN INR VALUES INDICATIONS NORMAL RANGES PROPHYLAXIS/TREATMENT OF: VENOUS THROMBOSIS 2.0-3.0 PULMONARY EMBOLISM 2.0-3.0 PREVENTION OF SYSTEMIC EMBOLISM FROM: TISSUE HEART VALVES 2.0-3.0 ACUTE MYOCARDIAL INFARCTION 2.0-3.0 VALVULAR HEART DISEASE 2.0-3.0 ATRIAL FIBRILLATION 2.0-3.0 MECHANICAL VALVES(HIGH RISK) 2.5-3.5 RECURRENT MYOCARDIAL INFARCTION 2.5-3.5 ID Date Data Source [id number] 02/13/2021 11:33:00 PM EDT [facility] ([facility] Name Value Range Interpretation Code Description Data Nahomi rce(s) Supporting Document(s) CPK Creatine Phosphokinase 192 U/L 39-308 [facility] ([facility] MB/CK Relative Index 0.57 [facility] ( [facility]) <content>DIAGNOSIS CRITERIA</content>
<content>MMB ng/ml Relative Index (RI)</content>
<content>NON-AMI < or = 5 N/A</content>
<content>LAWSON ZONE > 5 < or = 4</content>
<content>AMI > 5 > 4</content>
<content></content> CK-MB Value Mass 1.1 ng/mL [facility] ([facility]) Troponin I 0.02 ng/mL [facility] ([facility]) <content>Troponin I Reference Interval f or Siemens Verdon LOCI:</content>
<content></content>
<content>99th Percentile= 0.00-0.045 ng/ml</content>
<content></content>
<content>Risk Stratification:</content>
<content><= 0.10 ng/ml Decreased Risk for Adverse Clinical</content>
<content>Events.</content>
<content>0.10-1.50 ng/ml Increased Risk for Adverse Clinical</content>
<content>Events. Evaluation of additional</content>
<content>criterion and/or repeat testing in 2-6</content>
<content>hours is suggested to rule out myocardial</content>
<content>damage.</content>
<content>>= 1.50 ng/ml Indicative of Myocardial Injury.</content>
<content></content> ID Date Data Source [id number] 02/13/2021 11:33:00 PM EDT [facility] ([facility]) Name Value Range Interpretation Code Description Data Nahomi rce(s) Supporting Document(s) Acetone/Ketone 2.52 mg/dL [facility] ([facility] ID Date Data Source [id number] 02/13/2021 11:33:00 PM EDT [facility] ([facility] Name Value Range Interpretation Code Description Data Nahomi rce(s) Supporting Document(s) Osmolality of Serum or Plasma 271 MOSM/KG 280-301 [facility] ([facility]) Thyrotropin [Units/volume] in Serum or Plasma by Detec tion limit <= 0.05 mIU/L 2.530 uIU/ML 0.358-3.740 [facility] ([facility] ) Ethanol [Mass/volume] in Serum or Plasma Laboratory test result 0.000 -0.010 [facility] ([facility]) Thyroxine (T4) free [Mass/volume] in Serum or Plasma 1.06 ng/dL 0.76- 1.46 [facility] ([facility]) Digoxin [Mass/volume] in Serum or Plasma 1.2 ng/mL 0.5-2.0 [facility] ([facility]) ID Date Data Source [id number] 02/13/2021 11:33:00 PM EDT [facility] ([facility]) Name Value Range Interpretation Code Description Data Nahomi rce(s) Supporting Document(s) Color, Urine RFX Laboratory test result [facility] ([facility]) PH,Urine RFX 5.0 units 5.0-9.0 [facility] ([facility]) Appearance, Urine RFX Laboratory test result [facility] ([facility]) Specific [place] Ur Auto RFX 1.017 1.002-1.035 [facility] ([facility]) Glucose, Urine (Ua) Auto RFX Laboratory test result [facility] ([facility]) Protein, Urine Auto RFX Laboratory test result [facility] ([facility]) Urobilinogen, Urine Auto RFX 4.0 mg/dL 0.0-2.0 [facility] ([facility]) Bilirubin, Urine Auto RFX Laboratory test result [facility] ([facility]) Ketone, Urine Auto RFX Laboratory test result [facility] ([facility]) Blood, Urine Blood RFX Laboratory test result [facility] ([facility]) Leukocyte Esterase Ur Auto RFX Laboratory test result [facility] ([facility]) Nitrite, Urine Auto RFX Laboratory test result [facility] ([facility] RBC, Urine Auto RFX 1 /HPF 0-3 [facility] ([facility] WBC, Urine Auto RFX 1 /HPF 0-3 [facility] ([facility] Mucus, Urine RFX Laboratory test result [facility] ([facility]) Bacteria, Urine Auto RFX Laboratory test result [facility] ([facility]) Squam Epithelial Cell Ur Aurfx 0 /HPF 0-6 [facility] ([facility]) Hyaline Cast, Urine Auto RFX 0 /LPF 0-1 [facility] ([facility]) ID Date Data Source [id number] 02/13/2021 11:33:00 PM EDT [facility] ([facility]) Name Value Range Interpretation Code Description Data Nahomi rce(s) Supporting Document(s) Glucose, Fasting 122 mg/dL 70-100 [facility] ([facility]) Blood Urea Nitrogen 15 mg/dL 7-18 [facility] ([facility]) Creatinine For GFR 0.90 mg/dL 0.70-1.30 [facility] ([facility] Potassium Serum 4.1 meq/L 3.5-5.1 [facility] ([facility]) Glomerular Filtration Rate Laboratory test result [facility] ([facility] <content>Units are mL/min/1.73 m2</content>
<content></content>
<content>Chronic Kidney Disease Staging per NKF:</content>
<content></content>
<content>Stage I & II GFR >=60 Normal to Mildly Decreased</content>
<content>Stage III GFR 30- 59 Moderately Decreased</content>
<content>Stage IV GFR 15-29 Severely Decreased</content>
<content>Stage V GFR <15 Very Little GFR Left</content>
<content>ESRD GFR <15 on FABRICATION WELDER</content>
<content></content> Sodium Level 135 meq/L 136-145 [facility] ([facility]) Anion Gap 8 meq/L 8-16 [facility]) Carbon Dioxide Level 25 meq/L 21-32 [facility] ([facility]) Chloride Level 102 meq/L 98-107 [facility] ([facility]) Calcium Level 8.2 mg/dL 8.8-10.2 [facility] ([facility]) ID Date Data Source [id number] 02/05/2021 09:23:00 AM EDT [facility] ([facility]) Name Value Range Interpretation Code Description Data Nahomi rce(s) Supporting Document(s) Microalbumin Urine 6.1 mg/L 1.3-20.0 [facility] Urine Creatinine 121.2 mg/dL 30.0-125.0 [facility] Microalb/Creat Ratio 5.0 ug/mg 0.0-30.0 [facility] ID Date Data Source [id number] 02/05/2021 09:23:00 AM EDT [facility] ([facility]) Name Value Range Interpretation Code Description Data Nahomi rce(s) Supporting Document(s) Hemoglobin A1c/Hemoglobin.total in Blood 5.6 % [facility] ([facility]) Lab Result Notes: Pre-Diabetes 5.7 - 6.4 % Diabetes = or > 6.5% Glucose mean value [Mass/volume] in Blood Estimated fr om glycated hemoglobin 114 mg/dL 60-110 [facility] ([facility] ) ID Date Data Source [id number] 02/05/2021 09:23:00 AM EDT [facility] ([facility]) Name Value Range Interpretation Code Description Data Nahomi rce(s) Supporting Document(s) Glucose [Mass/volume] in Serum or Plasma 132 mg/dL 74-99 [facility] ([facility]) 100-125 mg/dL PRE-DIABETES/FASTING >126 mg/dL DIABETES/FASTING Urea nitrogen [Mass/volume] in Serum or Plasma 9 mg/dL 7-18 [facility] ([facility]) Creatinine 0.9 mg/dL 0.6-1.3 [facility]) Potassium [Moles/volume] in Serum or Plasma 4.2 meq/L 3.5-5.1 [facility] ([facility]) Sodium [Moles/volume] in Serum or Plasma 138 meq/L 136-145 [facility] ([facility]) Carbon dioxide, total [Moles/volume] in Serum or Plasma 29 meq/L 21 -32 [facility] ([facility]) Chloride [Moles/volume] in Serum or Plasma 103 meq/L 98-107 [facility] ([facility]) Calcium [Mass/volume] in Serum or Plasma 9.6 mg/dL 8.5-10.1 [facility] ([facility]) Glomerular filtration rate/1.73 sq M pre dicted among blacks [Volume Rate/Area] in Serum or Plasma by Creatinine-based formula (MDRD) Laboratory test result [facility] ([facility] <content>CHRONIC KIDNEY DISEASE STAGING PER NKF</content>
<content></content>
<content>STAGE I & II GFR >= 60 NORMAL TO MILDLY DECREASED</content>
<content>STAGE III GFR 30-59 MODERATELY DECREASED</content>
<content>STAGE IV GFR 15-29 SEVERELY DECREASED</content>
<content>STAGE V GFR <15 VERY LITTLE GFR LEFT</content>
<content>ESRD GFR <15 ON FABRICATION WELDER</content>
<content></content> Glomerular filtration rate/1.73 sq M pre dicted among non-blacks [Volume Rate/Area] in Serum or Plasma by Creatinine-based formula (MDRD) Laboratory test result [facility] ([facility] ) ID Date Data Source [id number] 12/31/2020 11:08:00 AM EDT [facility] ([facility]) Name Value Range Interpretation Code Description Data Nahomi rce(s) Supporting Document(s) Lyme Disease IgM Ab Quantitati Laboratory test result 0.00-0.79 [facility] ([facility] <content>Negative <0.80</content >
<content>Equivocal 0.80 - 1.19</content>
<content>Positive >1.19</content>
<content>.</content>
<content>IgM levels may peak at 3-6 weeks post infection, then</content>
<content>gradually decline.</content>
<content>Performed at: [facility]</content>
<content>[address] [place] [address] [id number]</content>
<content>Transfer Station Attendant: Alvina Puckett MD, Phone: [phone]</content>
<content></content> Lyme Disease IgG/IgM Antibodie Laboratory test result 0.00-0.90 [facility] ([facility]) <content>Negative <0.91</content >
<content>Equivocal 0.91 - 1.09</content>
<content>Positive >1.09</content>
<content></content> ID Date Data Source [id number] 12/31/2020 11:08:00 AM EDT [facility] ([facility]) Name Value Range Interpretation Code Description Data Nahomi rce(s) Supporting Document(s) Digoxin [Mass/volume] in Serum or Plasma 1.2 ng/mL 0.5-2.0 [facility] ([facility]) ID Date Data Source [id number] 12/31/2020 11:08:00 AM EDT [facility] ([facility]) Name Value Range Interpretation Code Description Data Nahomi rce(s) Supporting Document(s) Lipoprotein lipase [Enzymatic activity/volume] in Serum or P lasma 223 U/L 73-393 [facility] ([facility]) ID Date Data Source [id number] 12/31/2020 11:07:00 AM EDT [facility] ([facility]) Name Value Range Interpretation Code Description Data Nahomi rce(s) Supporting Document(s) Erythrocytes [#/volume] in Blood by Automated count 4.38 x10*6/UL 4.2 0-6.30 [facility] ([facility]) Hemoglobin [Mass/volume] in Blood 13.6 g/dL 12.0-18.0 [facility] ([facility]) Leukocytes [#/volume] in Blood by Automated count 5.2 x10*3/UL 4.1-10 .9 [facility] ([facility]) MCH 31.1 pg 26.0-32.0 [facility] Hematocrit [Volume Fraction] of Blood by Automated count 40.4 % 3 7.0-51.0 [facility] ([facility]) MCV 92.1 fL 80.0-97.0 [facility]) Platelets [#/volume] in Blood by Automated count 184 x10*3/UL 140-440 [facility] ([facility]) MCHC 33.8 g/dL 31.0-38.0 [facility] ([place]) Erythrocyte distribution width [Ratio] by Automated count 12.7 % 11.6-13.7 [facility] ([facility]) Lymph % 17.6 % 10.0-58.5 [facility]) Mid % 5.4 % 1.7-9.3 [facility]) MPV 7.6 FL 7.8-11.0 [facility] ([place]) Mid # 0.3 x10*3/UL 0.1-0.6 [facility] ([facility]) Neut % 77.0 % 37.0-92.0 [facility] Lymph # 0.9 x10*3/UL 0.6-4.1 [facility] ([facility]) Neut # 4.0 x10*3/UL 2.0-7.8 [facility] ([facility]) ID Date Data Source [id number] 12/31/2020 11:07:00 AM EDT [facility] ([facility]) Name Value Range Interpretation Code Description Data Nahomi rce(s) Supporting Document(s) Glucose [Mass/volume] in Serum or Plasma 98 mg/dL 74-99 [facility] ([facility]) 100-125 mg/dL PRE-DIABETES/FASTING >126 mg/dL DIABETES/FASTING Urea nitrogen [Mass/volume] in Serum or Plasma 12 mg/dL 7-18 [facility] ([facility]) Creatinine 0.9 mg/dL 0.6-1.3 [facility] ([facility]) Sodium [Moles/volume] in Serum or Plasma 140 meq/L 136-145 [facility] ([facility]) Chloride [Moles/volume] in Serum or Plasma 103 meq/L 98-107 [facility] ([facility]) Potassium [Moles/volume] in Serum or Plasma 4.6 meq/L 3.5-5.1 [facility] ([facility]) Carbon dioxide, total [Moles/volume] in Serum or Plasma 32 meq/L 21 -32 [facility] ([facility]) Total Bilirubin 0.9 mg/dL 0.2-1.0 [facility] ([facility]) Calcium [Mass/volume] in Serum or Plasma 9.6 mg/dL 8.5-10.1 [facility] ([facility]) Alkaline phosphatase isoenzyme [Units/volume] in Serum or Pl asma 104 mg/dL 46-116 [facility] ([facility]) Alanine aminotransferase [Enzymatic activity/volume] in Seru m or Plasma 28 U/L 12-78 [facility] ([facility]) Aspartate aminotransferase [Enzymatic activity/volume] in Serum or Plasma 32 U/L 15-37 [facility] ([facility] ) Albumin [Mass/volume] in Serum or Plasma 3.8 g/dL 3.4-5.0 [facility] ([facility]) Proteinase 3 Ab [Units/volume] in Serum 7.2 g/dL 6.4-8.2 [facility] ([facility]) A/G Ratio 1.12 CALC 1.00-1.90 [facility]) Glomerular filtration rate/1.73 sq M pre dicted among non-blacks [Volume Rate/Area] in Serum or Plasma by Creatinine-based formula (MDRD) Laboratory test result [facility] Glomerular filtration rate/1.73 sq M pre dicted among blacks [Volume Rate/Area] in Serum or Plasma by Creatinine-based formula (MDRD) Laboratory test result [facility] ([facility]) <content>CHRONIC KIDNEY DISEASE STAGING PER NKF</content>
<content></content>
<content>STAGE I & II GFR >= 60 NORMAL TO MILDLY DECREASED</content>
<content>STAGE III GFR 30-59 MODERATELY DECREASED</content>
<content>STAGE IV GFR 15-29 SEVERELY DECREASED</content>
<content>STAGE V GFR <15 VERY LITTLE GFR LEFT</content>
<content>ESRD GFR <15 ON FABRICATION WELDER</content>
<content></content> ID Date Data Source [id number] 12/02/2020 01:38:14 PM EDT [facility]FORMATIONPatient MRN Name Date of Age Gend*PT [id number] Nahun De Oliveira 1935 85 years M ---PT Location Admission Date/Time Visit ID Attending Provider --- --- --- --- EPI ID CSN Admitting Provider [id number] ---Cardiology History and PhysicalName: Nahun De Oliveira Gender: maleDate of : 1935 Age: 85 yearsPrimary Care Provider / Referring Physician: Connie Joseph NPCardiology Telemedicine VisitPatient was identified by name and date of .Verbal consent was obtained from the patient for this telemedicine visit.Patient is aware of the risks, limitations, and benefits of a telemedicinevisit.This telemedicine assessment was conducted remotely with the assistance ofCSRication technology: Telephone Only Codes [id number]: 21 -30 minutes of medicaldiscussion: Telephone OnlyCurrent HistoryChief Complaint: This is a Telemedicine visitHPI:This patient is a 85 years male with the following updated problem list:1. Chronic atrial fibrillation: Patient is chronically anticoagulated due to ahigh chads2-vasc2 score,He was found to have a atrial appendage clot by JOSE MANUEL and did not undergocardioversion until he was anticoagulated and then he underwent cardioversionwhich was unsuccessful2. Essential hypertension3. Hyperlipidemia4. Sleep apnea uses CPAP5. Coronary artery disease: Status post coronary artery bypass grafting . Aortic stenosis: Followed with regular echocardiographyThis is a follow up visit after ECHO, no symptoms, yvon SOB, CP or syncopeReview of Systems General Denies dizziness or lightheadedness. Denies any recent, unexpectedweight changes. HEENT Denies any loss or change of vision. Denies tinnitus. Respiratory Denies PND, orthopnea, BLUM, hemoptysis, cough, or shortness ofbreath. Cardiac Denies chest pain or pressure, denies palpitations GI Denies melena, hematochezia, nausea, or vomiting. MS Denies any lower extremity edema. Neuro Denies speech, motor, or sensory impairment. Psych Denies depression or anxiety. Endo Denies polyuria or polydipsia, denies temperature intolerance. 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 Xarelto Macular degeneration Sleep apnea CPAPPast Surgical History:Procedure Laterality Date APPENDECTOMY CARDIOVERSION N/A 11/15/2018 Procedure: CARDIOVERSION; Surgeon: Torito Escalona MD; Laterality: N/A;[id number] CATARACT EXTRACTION, BILATERAL IOLs CORONARY ARTERY BYPASS GRAFT HERNIA REPAIR LAPAROSCOPIC CHOLECYSTECTOMY N/A 02/24/2019 Procedure: CHOLECYSTECTOMY, LAPAROSCOPIC; Surgeon: Mario Aguillon MD;Laterality: N/A;Family HistoryProblem Relation Age of Onset Heart disease Mother Heart defect Father Atrial fibrillation Son Hypertension SonSocial HistorySocioeconomic History Marital status: Spouse name: Not on file Number of children: Not on file Years of education: Not on file Highest education level: Not on fileOccupational History Not on fileTobacco Use Smoking status: Never Smoker Smokeless tobacco: Never UsedSubstance and Sexual Activity Alcohol use: No Drug use: No Sexual activity: Not on fileOther Topics Concern Not on fileSocial History Narrative Not on fileSocial Determinants of HealthFinancial Resource Strain: Difficulty of Paying Living Expenses:Food Insecurity: Worried About Running Out of Food in the Last Year: Ran Out of Food in the Last Year:Transportation Needs: Lack of Transportation (Medical): Lack of Transportation (Non-Medical):Physical Activity: Days of Exercise per Week: Minutes of Exercise per Session:Stress: Feeling of Stress :Social Connections: Frequency of Communication with Friends and Family: Frequency of Social Gatherings with Friends and Family: Attends Orthodox Services: Active Member of Clubs or Organizations: Attends Club or Organization Meetings: Marital Status:Intimate Partner Violence: Fear of Current or Ex-Partner: Emotionally Abused: Physically Abused: Sexually Abused:Medications and AllergiesALLERGIES/SENSITIVITIES: Patient has no known drug allergies.Current Outpatient Medications: aspirin EC 81 MG EC tablet, Take 81 mg by mouth daily, Disp: , Rfl: atorvastatin (LIPITOR) 80 MG tablet, Take 40 mg by mouth nightly , Disp: ,Rfl: DAILY GRZEGORZ (THERAGRAN) per tablet, Take 1 tablet by mouth daily, Disp: , Rfl: digoxin (LANOXIN) 250 MCG tablet, Take 250 mcg by mouth nightly, Disp: , Rfl: diltiazem (CARDIZEM CD) 180 MG 24 hr capsule, Take 180 mg by mouth daily,Disp: , Rfl: furosemide (LASIX) 40 MG tablet, Take 1 tablet (40 mg total) by mouth d aily,Disp: 30 tablet, Rfl: 2 GLUCOSAMINE-CHONDROITIN PO, Take 1 tablet by mouth daily , Disp: , Rfl: metFORMIN (GLUCOPHAGE) 500 MG tablet, TAKE 1 TABLET BY MOUTH ONCE DAILY ATDINNERTIME, Disp: , Rfl: metoprolol succinate (TOPROL-XL) 50 MG 24 hr tablet, Take 50 mg by mouthdaily, Disp: , Rfl: Multiple Vitamins-Minerals (ICAPS AREDS 2) CAPS, Take 1 capsule by mouth 2(two) times a day , Disp: , Rfl: nitroglycerin (NITROSTAT) 0.4 MG SL tablet, Place 0.4 mg under the tongueevery 5 (five) minutes as needed for chest pain, Disp: , Rfl: Potassium 99 MG TABS, Take 1 tablet by mouth daily , Disp: , Rfl: rivaroxaban (XARELTO) 20 MG TABS, Take 20 mg by mouth nightly , Disp: , Rfl: Vitamin D (CHOLECALCIFEROL) 1000 units tablet, Take 1,000 Units by mouthnightly, Disp: , Rfl: amoxicillin (AMOXIL) 500 MG capsule, Take 2,000 mg by mouth once as needed(prior to dental procedures), Disp: , Rfl:PhysicalPHYSICAL EXAM: Deferred due to Telemedicine encounterWt 88 kg (194 lb) | BMI 27.06 kg/m DiagnosticsLabNoneImaging/Testing:Echocardiogram:In most views, LVEF is reduced to approximately 45 to 50%. I do not believeLVEF is normal.Possible lo w-flow low gradient aortic valve stenosis, mean gradient is 34 mmHgAtrial fibrillationModerate to moderately severe biatrial enlargementMild to moderate right ventricular dilatationLinear echodensity in the right atrium of unclear significance. No indicationat this patient has a permanent pacemaker though I cannot exclude thatpossibility.Global left ventricular hypokinesisMarked mitral annular calcificationFibrocalcific changes of the mitral valveCalcification of the aortic valveMild pulmonary artery hypertensionEKG: NoneAssessment & PlanASSESSMENT/PLAN:1. 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 We willrepeat his echocardiogram in 3 months and I told him that he is getting close toneeding treatment.2. Coronary artery disease: He has no symptoms and knows to contact me if hedevelops any symptoms or call 911 for emergencies. We will be reevaluating hiscoronary anatomy at the time of the work-up for his valve replacement.3. Atrial fibrillation: This is chronic and he is anticoagulated and I suspecthis slight drop in ejection fraction is related to atrial fibrillation. He isasymptomatic.4. Sleep apnea: He uses CPAP5. Dyslipidemia: He is on maximum dose Lipitor6. Essential hypertension: This has been well controlledI have spent 15 minutes with the patient, counseling/coordinating the patient'scare.I discussed the above listed diagnoses and discussed Results of diagnostictesting, Prognosis, Management option risks and benefits andTreatment/management instructionsFollow up has been arranged and the patient knows to call if any issues arisebetween now and then, all question were answered.Signature: Rachel Gao, MDDate: December 02, 2020Time: 1:28 PMThis document or parts of this document, were dictated using Flat[employer] Techn[employer]iesso[employer]. A reasonable attempt at proofreading has been made to minimize errors.Please call with any questions or corrections. Name Value Range Interpretation Code Description Data Nahomi rce(s) Supporting Document(s) ID Date Data Source [id number] 12/02/2020 12:29:43 PM EDT [facility] Name Value Range Interpretation Code Description Data [facility] rce(s) Supporting Document(s) &PDF [facility] BYYTDm6xMsYREiHd08/EIEfkCFKbc1IyYZarEJh6KQriNEPoN5PwpNxoKDkIB4VMV7WYEMjELeTFGNDA Dcm [file] dGE+DQogICAgICAgICAgICAgICAgICAgICAgICAgICAgICAgICAgICAgICAgICAgICAgICAgICAgICAg ICAgICAgICAgICAgICAgICAgICAgICAgICAgICAgIC AgICAgICAgICAgICAgDQogICAgICAgICAgICAgICAgICAgICAgICAgICAgICAgICAgICAgICAgICAgIC AgICAgICAgICAgICAgICAgICAgICAgICAgICAgICAgICAgICAgICAgICAgICAgICAgICAgICAgDQogIC AgICAgICAgICAgICAgICAgICAgICAgICAgICAgICAg ICAgICAgICAgICAgICAgICAgICAgICAgICAgICAgICAgICAgICAgICAgICAgICAgICAgICAgICAgICAg ICAgICAgDQogICAgICAgICAgICAgICAgICAgICAgICAgICAgICAgICAgICAgICAgICAgICAgICAgICAg ICAgICAgICAgICAgICAgICAgICAgICAgICAgICAgIC AgICAgICAgICAgICAgICAgDQogICAgICAgICAgICAgICAgICAgICAgICAgICAgICAgICAgICAgICAgIC AgICAgICAgICAgICAgICAgICAgICAgICAgICAgICAgICAgICAgICAgICAgICAgICAgICAgICAgICAgDQ ogICAgICAgICAgICAgICAgICAgICAgICAgICAgICAg ICAgICAgICAgICAgICAgICAgICAgICAgICAgICAgICAgICAgICAgICAgICAgICAgICAgICAgICAgICAg ICAgICAgICAgDQogICAgICAgICAgICAgICAgICAgICAgICAgICAgICAgICAgICAgICAgICAgICAgICAg ICAgICAgICAgICAgICAgICAgICAgICAgICAgICAgIC AgICAgICAgICAgICAgICAgICAgDQogICAgICAgICAgICAgICAgICAgICAgICAgICAgICAgICAgICAgIC AgICAgICAgICAgICAgICAgICAgICAgICAgICAgICAgICAgICAgICAgICAgICAgICAgICAgICAgICAgIC AgDQogICAgICAgICAgICAgICAgICAgICAgICAgICAg ICAgICAgICAgICAgICAgICAgICAgICAgICAgICAgICAgICAgICAgICAgICAgICAgICAgICAgICAgICAg ICAgICAgICAgICAgDQogICAgICAgICAgICAgICAgICAgICAgICAgICAgICAgICAgICAgICAgICAgICAg ICAgICAgICAgICAgICAgICAgICAgICAgICAgICAgIC JvRGNzHLExKFYwDENlPGKwYLQjYPAjKKa9O9ohXPLnIOCgJT6uCAy3Sh5+CWjMAoOoCPT5gjYldN8UZI 1dd7FhMEjiQNOlp4ImMGt3FU8CGZUxHZmuFV8YCJxjhz8EDNNpFVLtfUREa6hkByNwIQP5HCSuNxtzZB 9QWEJhQ8btkvGbCFYvHHQNUGujBOIYVQxpKDWIZPKm HSYdXjNwYBxvQG3Vg5FlmOF1OBh+Rm3HHC9nx1DhTOs6WUGfEX0nhu4UHTxNAzCyK5H8lATsO7O3UHgp Np1BVMOmLCSeVAIsCKPIULngAN4GFY8xkxN1UC6XgIPgZMRiVAPssYPcJAj4Z02bjKHjVRbdPY4ZUFF+ Gretel+Ih3NVQNnELCgIMVlYoMqRSLGBjKfL69neGIaYP BqZZFzCPUoLj8ZBJHgD2PzjdReoGjrhlXkTNDbHRNCZX3VFMnwblHvwTFrnBvpRT73cXqtCY3HLh6ACn KmCR3ckd4BiIAoCj5OWRB2ZN8LTBCpGOAfTZQnNHZ0GIElCxImTXylSTSnPFInYGN6VIOhQXRsMZ7QLw TgPSFfBpy7VGNwKHQhGXDyfh8ILGOpJHH8WVftWsOs YGVaTDDbACgpAOHqBUQhMZw0MIAcGVCvAJ1VAkOuQQYcOKI2DJNlTGFaSLMooe3MBSEvDKRfSqS3QZBg GYVtWHClBXvpKDUhKZC5DkIlUXRiSXHrOG7VBbPmKELaIIE5HvMrOBAeCHUipk8PYGDmISRpMCJwTrXy PNZzZKDzSKqiHCKmMBR4AjDuCMDxFVOaMG3OPqZmMP DoEVfaGYHeEFFcFDUyjc7PIJVvZSFiSEZbEVTnPJDrXBScBGjyABKzDLJfBPXcOKYoFIOlSV2PXpAyAM LuOCB8LQplZNOcCGYscq1SNEPoDJKuIZd5UNFbJRBhKDEhVSzyCZHbDBXeIWXqATYzGHJgPB0ZFaCdLP IsWWKoPCNyPNYvQGVzcz6THMKpESZcPnR7JHGzRCWl INWxDUtcYHHyRUZ4XLY0XKMqZYGbAJ0OCpRbAKHfAAebSaByWTWgWOXstr5DEAEfWYBmPnY4IOYpPVDb UKAgKYlfYSMoCDP0XNH0SLZoKQCzKN6UAtXaKXDxFKj0WjDaHHSsWEVeqp0CRGVbTPOfWKpoMSQiFSDa PWUpHWgmMKNsZSA8TRl4KEZqGJEvVY4RBlLmGGTvLX tpNwRbOPOdVRFjvs8EAAObOOHhVEYrZGFlMUBeWCZxNNyfXLWvGNVtNrH4HULdDRMkJF2CGmYmLPMvRa B9OywuCFHePUOtnc8UHUNmOREdKKQlDlGsVYZpLPFiCVvtYXKwBGA3QJT1AKCcVBMxPC7KHhAuQSLbSe J6BUXrNFJtPCFkbv4EDACuBXJkUDp9QpSxDSNvAYLq BVhvQBZqKHA9KCTfLZNuGEJtZF3PUaYyNJXtJOToWLfzETSlUGGoms0LTWCjEVQ5KUi7MYSsJXWkHQDz EGriKDVjJYD5MhSwRARzYJDcYD3XNtGhWUTcGWY4VBRwCBDmKPFbxa8FYLFtPPF7Epm2SLDaYVDmQHGl ZSrbLKWyLMHaSHReWJOlYFDiSG2BTiUwTDAdPnR9CE twJNZlXEUhls4XMOSxVWR5YYL3WNFlPLBuFRNoZLxfNFErISptMji3IHCjFKFwEK5HQiAlXPXuGgD4YH RnGPWgSZEqnh5CrRJvsNycig4UFAfDAv3LwNaxYVD3MEimMl1ieZX9DRMkAVVSHi8PrdHvTPMmLDIWIB vfBTCyZOwnXiOwHXXjNOUcZ6AkYIU0PtNcJUSvRxhu GbObADM3HiT4ZOEzRKN5LVHvZSE7TbCnGADdMeH0HzInIIKlRJH7JXN+CY6cUNa+Fe1Ck2WrpeI1uuBs JSt7LbUyPV7YBSHGC8QBMd== ID Date Data Source [id number] 10/16/2020 09:55:00 AM EDT [facility] ([facility]) Name Value Range Interpretation Code Description Data Nahomi rce(s) Supporting Document(s) Cholesterol in HDL [Mass/volume] in Serum or Plasma 37 mg/dL 35-60 [facility] ([facility]) Triglyceride [Mass/volume] in Serum or Plasma 155 mg/dL 30-150 [facility] ([facility]) Cholesterol [Mass/volume] in Serum or Plasma 85 mg/dL 131-200 [facility] ([facility]) Cholesterol in LDL [Mass/volume] in Serum or Plasma by calculation Laboratory test result 50-159 [facility] ([facility] ) ID Date Data Source [id number] 10/16/2020 09:55:00 AM EDT [facility] ([facility]) Name Value Range Interpretation Code Description Data Nahomi rce(s) Supporting Document(s) Glucose [Mass/volume] in Serum or Plasma 120 mg/dL 74-99 [facility] ([facility]) 100-125 mg/dL PRE-DIABETES/FASTING >126 mg/dL DIABETES/FASTING Urea nitrogen [Mass/volume] in Serum or Plasma 13 mg/dL 7-18 [facility] ([facility]) Creatinine 1.0 mg/dL 0.6-1.3 [facility] Sodium [Moles/volume] in Serum or Plasma 140 meq/L 136-145 [facility] ([facility]) Calcium [Mass/volume] in Serum or Plasma 9.3 mg/dL 8.5-10.1 [facility] ([facility]) Carbon dioxide, total [Moles/volume] in Serum or Plasma 30 meq/L 21 -32 [facility] ([facility]) Potassium [Moles/volume] in Serum or Plasma 4.3 meq/L 3.5-5.1 [facility] ([facility]) Chloride [Moles/volume] in Serum or Plasma 102 meq/L 98-107 [facility] ([facility]) Aspartate aminotransferase [Enzymatic activity/volume] in Serum or Plasma 29 U/L 15-37 [facility] ([facility] ) Alkaline phosphatase isoenzyme [Units/volume] in Serum or Pl asma 97 mg/dL 46-116 [facility] ([facility]) Total Bilirubin 1.0 mg/dL 0.2-1.0 [facility] ([facility]) Albumin [Mass/volume] in Serum or Plasma 4.4 g/dL 3.4-5.0 [facility] ([facility]) Alanine aminotransferase [Enzymatic activity/volume] in Seru m or Plasma 25 U/L 12-78 [facility] ([facility]) Proteinase 3 Ab [Units/volume] in Serum 7.7 g/dL 6.4-8.2 [facility] ([facility]) A/G Ratio 1.33 CALC 1.00-1.90 [facility]) Glomerular filtration rate/1.73 sq M pre dicted among non-blacks [Volume Rate/Area] in Serum or Plasma by Creatinine-based formula (MDRD) Laboratory test result [facility] Glomerular filtration rate/1.73 sq M pre dicted among blacks [Volume Rate/Area] in Serum or Plasma by Creatinine-based formula (MDRD) Laboratory test result [facility] ([facility]) <content>CHRONIC KIDNEY DISEASE STAGING PER NKF</content>
<content></content>
<content>STAGE I & II GFR >= 60 NORMAL TO MILDLY DECREASED</content>
<content>STAGE III GFR 30-59 MODERATELY DECREASED</content>
<content>STAGE IV GFR 15-29 SEVERELY DECREASED</content>
<content>STAGE V GFR <15 VERY LITTLE GFR LEFT</content>
<content>ESRD GFR <15 ON FABRICATION WELDER</content>
<content></content> ID Date Data Source [id number] 10/16/2020 09:55:00 AM EDT [facility] ([facility] Name Value Range Interpretation Code Description Data Nahomi rce(s) Supporting Document(s) Hemoglobin A1c/Hemoglobin.total in Blood 5.9 % [facility] ([facility]) Lab Result Notes: Pre-Diabetes 5.7 - 6.4 % Diabetes = or > 6.5% Glucose mean value [Mass/volume] in Blood Estimated fr om glycated hemoglobin 123 mg/dL 60-110 [facility] ID Date Data Source [id number] 10/16/2020 09:55:00 AM EDT [facility] ([facility]) Name Value Range Interpretation Code Description Data Nahomi rce(s) Supporting Document(s) Leukocytes [#/volume] in Blood by Automated count 5.0 x10*3/UL 4.1-10 .9 [facility] Erythrocytes [#/volume] in Blood by Automated count 4.40 x10*6/UL 4.2 0-6.30 [facility] MCV 91.9 fL 80.0-97.0 [facility] ([facility]) Hematocrit [Volume Fraction] of Blood by Automated count 40.5 % 3 7.0-51.0 [facility] Hemoglobin [Mass/volume] in Blood 13.9 g/dL 12.0-18.0 [facility] ([facility]) MCHC 34.3 g/dL 31.0-38.0 [facility] ([facility]) Erythrocyte distribution width [Ratio] by Automated count 12.5 % 11.6-13.7 [facility] MCH 31.6 pg 26.0-32.0 [facility] ([facility]) Platelets [#/volume] in Blood by Automated count 167 x10*3/UL 140-440 [facility] Mid % 4.6 % 1.7-9.3 [facility]) MPV 8.1 FL 7.8-11.0 [facility]) Lymph % 17.3 % 10.0-58.5 [facility]) Neut % 78.1 % 37.0-92.0 [facility]) Lymph # 0.8 x10*3/UL 0.6-4.1 [facility] ([facility]) Mid # 0.3 x10*3/UL 0.1-0.6 [facility] ([facility]) Neut # 3.9 x10*3/UL 2.0-7.8 [facility] ([facility]) ID Date Data Source [id number] 06/03/2020 11:30:34 AM EST [facility] INFORMATIONPatient MRN Name Date of Age Gend*PT [id number] Nahun De Oliveira 1935 84 years M ---PT Location Admission Date/Time Visit ID Attending Provider --- --- --- --- EPI ID CSN Admitting Provider [id number] ---Cardiology History and PhysicalName: Nahun De Oliveira Gender: maleDate of : 1935 Age: 84 yearsPrimary Care Provider / Referring Physician: Connie Joseph NPCardiology Telemedicine VisitPatient was identified by name and date of .Verbal consent was obtained from the patient for this telemedicine visit.Patient is aware of the risks, limitations, and benefits of a telemedicinevisit.This telemedicine assessment was conducted remotely with the assistance ofMovinto Funommunication technology: Telephone Only Codes 41301: 21 -30 minutes of medicaldiscussion: Telephone OnlyCurrent HistoryChief Complaint: This is a Telemedicine visitHPI:This patient is a 84 years male with the following updated problem list:1. Chronic atrial fibrillation: Patient is chronically anticoagulated due to ahigh chads2-vasc2 score,He was found to have a atrial appendage clot by JOSE MANUEL and did not undergocardioversion until he was anticoagulated and then this past summer he underwentcardioversion which was unsuccessful2. Essential hypertension3. Hyperlipidemia4. Sleep apnea uses CPAP5. Coronary artery disease: Status post coronary artery bypass grafting . Aortic stenosis: Last echocardiogram showed a valve area 1 cm with apeak/mean pressure gradient of 37/23 mmHg.This is a follow upReview of Systems General Denies dizziness or lightheadedness. Denies any recent, unexpectedweight changes. HEENT Denies any loss or change of vision. Denies tinnitus. Respiratory Denies PND, orthopnea, BLUM, hemoptysis, cough, or shortness ofbreath. Cardiac Denies chest pain or pressure, denies palpitations GI Denies melena, hematochezia, nausea, or vomiting. MS Denies any lower extremity edema. Neuro Denies speech, motor, or sensory impairment. Psych Denies depression or anxiety. Endo Denies polyuria or polydipsia, denies temperature intolerance. 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 cardiac Hypercholesteremia [facility] current use of anticoagulant Xarelto Macular degeneration Sleep apnea CPAPPast Surgical History:Procedure Laterality Date APPENDECTOMY CARDIOVERSION N/A 11/15/2018 Procedure: CARDIOVERSION; Surgeon: Torito Escalona MD; Laterality: N/A;[id number] CATARACT EXTRACTION, BILATERAL IOLs CORONARY ARTERY BYPASS GRAFT HERNIA REPAIR LAPAROSCOPIC CHOLECYSTECTOMY N/A 02/24/2019 Procedure: CHOLECYSTECTOMY, LAPAROSCOPIC; Surgeon: Mario Aguillon MD;Laterality: N/A;Family HistoryProblem Relation Age of Onset Heart disease Mother Heart defect Father Atrial fibrillation Son Hypertension SonSocial HistorySocioeconomic History Marital status: Spouse name: Not on file Number of children: Not on file Years of education: Not on file Highest education level: Not on fileOccupational History Not on fileSocial Needs Financial resource strain: Not on file Food insecurity: Worry: Not on file Inability: Not on file Transportation needs: Medical: Not on file Non-medical: Not on fileTobacco Use Smoking status: Never Smoker Smokeless tobacco: Never UsedSubstance and Sexual Activity Alcohol use: No Drug use: No Sexual activity: Not on fileLifestyle Physical activity: Days per week: Not on file Minutes per session: Not on file Stress: Not on fileRelationships Social connections: Talks on phone: Not on file Gets together: Not on file Attends bahai service: Not on file Active member of club or organization: Not on file Attends meetings of clubs or organizations: Not on file Relat ionship status: Not on file Intimate partner violence: Fear of current or ex partner: Not on file Emotionally abused: Not on file Physically abused: Not on file Forced sexual activity: Not on fileOther Topics Concern Not on fileSocial History Narrative Not on fileMedications and AllergiesALLERGIES/SENSITIVITIES: Patient has no known drug allergies.Current Outpatient Medications: aspirin EC 81 MG EC tablet, Take 81 mg by mouth daily, Disp: , Rfl: atorvastatin (LIPITOR) 80 MG tablet, Take 40 mg by mouth nightly , Disp: ,Rfl: DAILY GRZEGORZ (THERAGRAN) per tablet, Take 1 tablet by mouth daily, Disp: , Rfl: digoxin (LANOXIN) 250 MCG tablet, Take 250 mcg by mouth nightly, Disp: , Rfl: diltiazem (CARDIZEM CD) 180 MG 24 hr capsule, Take 180 mg by mouth daily,Disp: , Rfl: furosemide (LASIX) 40 MG tablet, Take 1 tablet (40 mg total) by mouth daily,Disp: 30 tablet, Rfl: 2 metoprolol succinate (TOPROL-XL) 50 MG 24 hr tablet, Take 50 mg by mouthdaily, Disp: , Rfl: Potassium 99 MG TABS, Take by mouth, Disp: , Rfl: rivaroxaban (XARELTO) 20 MG TABS, Take 20 mg by mouth nightly , Disp: , Rfl: Vitamin D (CHOLECALCIFEROL) 1000 units tablet, Take 1,000 Units by mouthnightly, Disp: , Rfl: amoxicillin (AMOXIL) 500 MG capsule, Take 2,000 mg by mouth once as needed(prior to dental procedures), Disp: , Rfl: GLUCOSAMINE-CHONDROITIN PO, Take by mouth, Disp: , Rfl: metFORMIN (GLUCOPHAGE) 500 MG tablet, TAKE 1 TABLET BY MOUTH ONCE DAILY ATDINNERTIME, Disp: , Rfl: Multiple Vitamins-Minerals (ICAPS AREDS 2) CAPS, Take 1 capsule by mouth 2(two) times a day , Disp: , Rfl: nitroglycerin (NITROSTAT) 0.4 MG SL tablet, Place 0.4 mg under the tongueevery 5 (five) minutes as needed for chest pain, Disp: , Rfl:PhysicalPHYSICAL EXAM: Deferred due to Telemedicine encounterThere were no vitals taken for this visit.DiagnosticsLabNoneImaging/Testing:ECHO:1. Left ventricular cavity size is normal with mild increase in wallthickness.2. LV systolic function is normal with resting estimated ejection fraction is55-60 %.3. The left ventricular wall motion is paradoxical septal motion due to RVpacing4. LV diastolic function is abnormal with elevated filling pressure5. Left atrial size is severely dilated6. Estimated PA pressure is 34 mm hg .7. 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 Aortic valve V max is 3.40 M/Sec, Max/ Mean Gradient 46/24 mm hg, DI= 0.32consistent with moderate aortic stenosis . Trace aortic regurgitationEKG: NoneAssessment & PlanASSESSMENT/PLAN:1. Aortic stenosis: His most recent echocardiogram in August 2019 did revealmoderate disease with a peak gradient of 46 mmHg and a mean gradient of 24 mmHgI did explain to the patient that we would not treat until his mean gradient isgreater than 40 mmHg.2. Chronic atrial fibrillation: He is anticoagulated with Xarelto chronically3. Hyperlipidemia: He is on a statin4. Coronary artery disease: He has no symptoms related to this but knows tocall us if anything develops between now and his next visit or to call 911 foremergencies.5. Sleep apnea: He uses CPAPI have spent 15 minutes with the patient, counseling/coordinating the patient'scare.I discussed the above listed diagnoses and discussed Results of diagnostictesting, Prognosis, Management option risks and benefits, Treatment/managementinstructions, Compliance and Risk Factor ReductionFollow up has been arranged and the patient knows to call if any issues arisebetween now and then, all question were answered.Signature: Rachel Gao, MDDate: June 03, 2020Time: 11:19 AMThis document or parts of this document, were dictated using [employer]. A reasonable attempt at proofreading has been made to minimize errors.Please call with any questions or corrections. Name Value Range Interpretation Code Description Data [facility] rce(s) Supporting Document(s) ID Date Data Source [id number] 05/20/2020 12:14:00 PM EST [facility] ([facility]) Name Value Range Interpretation Code Description Data [facility] rce(s) Supporting Document(s) Surgical pathology study Laboratory test result [facility] ([facility]) FINAL DIAGNOSIS A - Colon, polyp @ 50 cm., polypectomy: Tubular adenoma. B - Colon, hepatic flexure polyp, polypectomy: Fragments of tubular adenoma. 05/21/2020 - 1325 CLINICAL DIAGNOSIS Colon polyps 05/21/2020 - 713 GROSS DIAGNOSIS A - Received in formalin labeled "polyp @ 50 cm" consists of one fragment of gomez tissue measuring 0.3 x 0.3 x 0.2 cm. All in one. B - Received in formalin labeled "polyp @ hepatic flexure" consists of multiple fragments of gomez tissue, 0.5 x 0.3 x 0.2 cm in aggregate. All in one. -SV 05/21/2020713 Signed DANITA BURT MD 05/21/2020 1553 ID Date Data Source [id number] 05/15/2020 02:00:00 PM EST [facility] Name Value Range Interpretation Code Description Data [facility](s) Supporting Document(s) SARS coronavirus 2 RNA [facility] This lab was ordered by [facility] and reported by [facility]. ID Date Data Source [id number] 05/07/2020 01:15:00 PM EST [facility] ([facility]) Name Value Range Interpretation Code Description Data [facility]s) Lyme Disease IgG/IgM Antibodie Laboratory test result 0.00-0.90 [facility] ([facility]) <content>Negative <0.91</content >
<content>Equivocal 0.91 - 1.09</content>
<content>Positive >1.09</content>
<content></content> Lyme Disease IgM Ab Quantitati Laboratory test result 0.00-0.79 [facility] ([facility]) <content>Negative <0.80</content >
<content>Equivocal 0.80 - 1.19</content>
<content>Positive >1.19</content>
<content>.</content>
<content>IgM levels may peak at 3-6 weeks post infection, then</content>
<content>gradually decline.</content>
<content>Performed at: [facility]</content>
<content>[address] [place] [address] [id number]</content>
<content>Transfer Station Attendant: Alvina Puckett MD, Phone: [phone]</content>
<content></content> ID Date Data Source [id number] 05/07/2020 01:15:00 PM EST [facility] ([facility]) Name Value Range Interpretation Code Description Data N[facility]omi rce(s) Supporting Document(s) Blood Urea Nitrogen 17 mg/dL 7-18 [facility] ([facility]) Glucose, Fasting 97 mg/dL 70-100 [facility] ([facility]) Sodium Level 138 meq/L 136-145 [facility] ([facility]) Creatinine For GFR 0.92 mg/dL 0.70-1.30 [facility] ([facility]) Glomerular Filtration Rate Laboratory test result [facility] ([facility]) <content>Units are mL/min/1.73 m2</content>
<content></content>
<content>Chronic Kidney Disease Staging per NKF:</content>
<content></content>
<content>Stage I & II GFR >=60 Normal to Mildly Decreased</content>
<content>Stage III GFR 30- 59 Moderately Decreased</content>
<content>Stage IV GFR 15-29 Severely Decreased</content>
<content>Stage V GFR <15 Very Little GFR Left</content>
<content>ESRD GFR <15 on FABRICATION WELDER</content>
<content></content> Potassium Serum 4.6 meq/L 3.5-5.1 [facility] ([facility], [facility]) Chloride Level 103 meq/L 98-107 [facility] ([facility], [facility]) Carbon Dioxide Level 32 meq/L 21-32 [facility] ( [facility] Calcium Level 9.9 mg/dL 8.8-10.2 [facility] ([facility], [facility]) Ast/Sgot 40 U/L 7-37 [facility] ([facility]) Anion Gap 3 meq/L 8-16 [facility] ([facility]) Alkaline Phosphatase 79 U/L 45-117 [facility] ( [facility]) Alt/SGPT 34 U/L 12-78 [facility] ([facility]) Bilirubin,Total 0.8 mg/dL 0.2-1.0 [facility] ([facility], [facility]) Albumin/Globulin Ratio 1.4 [facility] ([facility]) Total Protein 7.3 GM/DL 6.4-8.2 [facility] ([facility], [facility]) Albumin 4.3 GM/DL 3.2-5.2 [facility] ([facility]) ID Date Data Source [id number] 05/07/2020 01:15:00 PM EST [facility] ([facility]) Name Value Range Interpretation Code Description Data [facility] rce(s) Supporting Document(s) White Blood Count 5.4 10 4.0-10.0 [facility] Hemoglobin 14.4 g/dL 13.5-17.5 [facility] ([facility]) Red Blood Count 4.62 10 4.30-6.10 [facility] ([facility], [facility]) Hematocrit 44.8 % 42.0-52.0 [facility] ([facility]) Mean Corpuscular HGB Conc 32.1 g/dL 32.0-36.5 [facility] ([facility], [facility]) Mean Corpuscular Volume 97.0 fl 80.0-96.0 M [facility] ([facility], [facility]) Mean Corpuscular Hemoglobin 31.2 pg 27.0-33.0 [facility] ([facility] Platelet Count, Automated 170 10 150-450 [facility] ([facility] Neutrophils % 64.2 % 36.0-66.0 [facility] ([facility] Red Cell Distribution Width 11.8 % 11.5-14.5 [facility] ([facility]) Eos % 1.7 % 0.0-3.0 [facility] ([facility] Lymph % 22.9 % 24.0-44.0 [facility] ([facility]) [place] % 10.0 % 0.0-5.0 [facility] ([facility] Immature Granulocyte % 0.6 % 0-3.0 [facility] ([facility] Baso % 0.6 % 0.0-1.0 [facility] ([facility] Nucleated Red Blood Cell % 0.0 % 0-0 [facility] ([facility], [facility]) Lymph # 1.2 10 1.5-5.0 [facility] ([facility] [place] # 0.5 10 0.0-0.8 [facility] ([facility] Neutrophils # 3.5 10 1.5-8.5 [facility] ([facility] Eos # 0.1 10 0.0-0.5 [facility] ([facility]) Baso # 0.0 10 0.0-0.2 [facility] ([facility]) ID Date Data Source [id number] 04/24/2020 12:00:00 AM EST [facility] Connie J Opal Anp, Rnnp Patient Name:NAHUN DE OLIVEIRA[age] [facility] Date of : 1935 301 Date of Exam: 04/24/2020ANTHONY Nur [id number]#: Fax: [phone] EXAM: CT ABDOMEN & PELVIS WITH CONTRASTCLINICAL INFORMATION: Abdominal pain.Low dose [address] scanning of the abdomen and pelvis wasobtained after the administration of intravenous contrast using 3 mmincrements and reconstructed in both sagittal and coronal scan planes.Immediate and delayed post contrast enhanced imaging was obtained throughthe abdomen. 75 cc of Optiray 350 was administered intravenously.There are no prior CT's of the abdomen and pelvis for comparison.There are mild fibrotic and/or subsegmental atelectatic changes seen in thelung bases, left greater than right. There are no pleural or pericardialeffusions.There is rather marked appearing elevation of the diaphragmatic surface ofthe left lung without evidence of a felicita diaphragmatic hernia.The patient is status post cholecystectomy. The liver, spleen, pancreas,adrenal glands and right kidney are within normal limits. Seen in thesuperior pole of the left kidney, there is an oval shaped 3.3 cm sized lowdensity structure which has water density HU readings and showing noevidence of contrast enhancement on delayed imaging. The left kidney isotherwise unremarkable. The abdominal aorta and paraaortic regions arewithin normal limits. There is descending colon diverticulosis. The bowelloops are otherwise unremarkable aside from the juxta positioning with theleft hemithorax.In the left anterior pelvic mesentery, there is a dumbbell shaped 5.9 x 2.9x 3 cm sized area of central adipose density with a thin circumferentialwall. This shows no contrast enhancement. There is no free fluid or freeair. There is a [id number] amount of content in the rectosigmoidvault.Bone window technique throughout the examination shows spinal degenerativechanges.IMPRESSION:1. Significant appearing elevation of the diaphragmatic surface of theleft lung. Phrenic nerve paralysis cannot be ruled out. This needs to becorrelated clinically.2. Bosniak Class I left renal cyst as described above.3. Colonic diverticulosis as described above.4. Area in the left anterior mid-pelvis, likely the sequela of either oldtrauma or appendigitis epiploica. 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 Other findings as described above.Accredited by the [employer] in [place].Harry Hameed, [place]/Brian you for referring NAHUN DE OLIVEIRA to our office. Electronically Signed - HARRY HAMEED DO 04/25/20 13:52 Name Value Range Interpretation Code Description Data [facility] rce(s) Supporting Document(s) ID Date Data Source [id number] 04/16/2020 09:31:00 AM EDT [facility] ([facility] Name Value Range Interpretation Code Description Data Nahomi rce(s) Supporting Document(s) Lipoprotein lipase [Enzymatic activity/volume] in Serum or P lasma 164 U/L 73-393 [facility] ([facility]) Helicobacter pylori IgG Ab [Presence] in Serum or Plas ma by Immunoassay Laboratory test result [facility] ([facility]) SERUM SAMPLES OBTAINED TOO EARLY DURING INFECTION MAY NOT CONTAIN DETECTABLE ANTIBODIES. IF H. PYLORI INFECTION IS SUSPECTED WITH A "NEGATIVE" SERUM RESULT, A FOLLOW UP SPECIMEN IS RECOMMENDED IN 2-7 WEEKS. ID Date Data Source [id number] 04/16/2020 09:31:00 AM EDT [facility] ([facility]) Name Value Range Interpretation Code Description Data [facility] rce(s) Supporting Document(s) Microalbumin Urine 15.8 mg/L 1.3-20.0 [facility] ([facility] Urine Creatinine 250.7 mg/dL 30.0-125.0 [facility] ([facility] Microalb/Creat Ratio 6.3 ug/mg 0.0-30.0 [facility] ([facility] ID Date Data Source [id number] 04/16/2020 09:31:00 AM EDT [facility] ([facility]) Name Value Range Interpretation Code Description Data [facility]ahomi rce(s) Supporting Document(s) Thyrotropin [Units/volume] in Serum or Plasma by Detec tion limit <= 0.05 mIU/L 3.48 uIU/mL 0.36-3.74 [facility] ([facility] ) Thyroxine (T4) free [Mass/volume] in Serum or Plasma 1.07 ng/dL 0.76- 1.46 [facility] ([facility]) ID Date Data Source [id number] 04/16/2020 09:31:00 AM EDT [facility] ([facility] Name Value Range Interpretation Code Description Data Nahomi rce(s) Supporting Document(s) Glucose [Mass/volume] in Serum or Plasma 131 mg/dL 74-99 [facility] ([facility]) 100-125 mg/dL PRE-DIABETES/FASTING >126 mg/dL DIABETES/FASTING Urea nitrogen [Mass/volume] in Serum or Plasma 12 mg/dL 7-18 [facility] ([facility]) Creatinine 1.0 mg/dL 0.6-1.3 [facility] Potassium [Moles/volume] in Serum or Plasma 4.4 meq/L 3.5-5.1 [facility] ([facility]) Sodium [Moles/volume] in Serum or Plasma 142 meq/L 136-145 [facility] ([facility]) Carbon dioxide, total [Moles/volume] in Serum or Plasma 31 meq/L 21 -32 [facility] ([facility]) Chloride [Moles/volume] in Serum or Plasma 103 meq/L 98-107 [facility] ([facility]) Alkaline phosphatase isoenzyme [Units/volume] in Serum or Pl asma 76 mg/dL 46-116 [facility] ([facility]) Calcium [Mass/volume] in Serum or Plasma 9.2 mg/dL 8.5-10.1 [facility] ([facility]) Aspartate aminotransferase [Enzymatic activity/volume] in Serum or Plasma 39 U/L 15-37 [facility] ([facility] ) Total Bilirubin 0.8 mg/dL 0.2-1.0 [facility] ([facility]) Proteinase 3 Ab [Units/volume] in Serum 7.2 g/dL 6.4-8.2 [facility] ([facility]) Albumin [Mass/volume] in Serum or Plasma 4.1 g/dL 3.4-5.0 [facility] ([facility] Alanine aminotransferase [Enzymatic activity/volume] in Seru m or Plasma 32 U/L 12-78 [facility] ([facility] A/G Ratio 1.32 CALC 1.00-1.90 [facility] Glomerular filtration rate/1.73 sq M pre dicted among non-blacks [Volume Rate/Area] in Serum or Plasma by Creatinine-based formula (MDRD) Laboratory test result [facility] ([facility] Glomerular filtration rate/1.73 sq M pre dicted among blacks [Volume Rate/Area] in Serum or Plasma by Creatinine-based formula (MDRD) Laboratory test result [facility] ([facility]) <content>CHRONIC KIDNEY DISEASE STAGING PER NKF</content>
<content></content>
<content>STAGE I & II GFR >= 60 NORMAL TO MILDLY DECREASED</content>
<content>STAGE III GFR 30-59 MODERATELY DECREASED</content>
<content>STAGE IV GFR 15-29 SEVERELY DECREASED</content>
<content>STAGE V GFR <15 VERY LITTLE GFR LEFT</content>
<content>ESRD GFR <15 ON FABRICATION WELDER</content>
<content></content> ID Date Data Source [id number] 04/16/2020 09:31:00 AM EDT [facility]) Name Value Range Interpretation Code Description Data Nahomi rce(s) Supporting Document(s) Hemoglobin A1c/Hemoglobin.total in Blood 6.1 % [facility] ([facility]) Lab Result Notes: Pre-Diabetes 5.7 - 6.4 % Diabetes = or > 6.5% Glucose mean value [Mass/volume] in Blood Estimated fr om glycated hemoglobin 128 mg/dL 60-110 [facility] ([facility] ) ID Date Data Source [id number] 04/16/2020 09:31:00 AM EDT [facility] ([facility]) Name Value Range Interpretation Code Description Data Nahomi rce(s) Supporting Document(s) Leukocytes [#/volume] in Blood by Automated count 4.1 x10*3/UL 4.1-10 .9 [facility] ([facility]) Erythrocytes [#/volume] in Blood by Automated count 4.59 x10*6/UL 4.2 0-6.30 [facility] ([facility]) Hemoglobin [Mass/volume] in Blood 14.6 g/dL 12.0-18.0 [facility] ([facility]) MCV 92.6 fL 80.0-97.0 [facility] Hematocrit [Volume Fraction] of Blood by Automated count 42.5 % 3 7.0-51.0 [facility] ([facility]) MCHC 34.3 g/dL 31.0-38.0 [facility] ([facility] MCH 31.8 pg 26.0-32.0 [facility] ([facility] Erythrocyte distribution width [Ratio] by Automated count 12.6 % 11.6-13.7 [facility] ([facility]) MPV 7.6 FL 7.8-11.0 [facility] ([facility] Platelets [#/volume] in Blood by Automated count 155 x10*3/UL 140-440 [facility] ([facility]) Lymph % 22.4 % 10.0-58.5 [facility] ([facility] Mid % 6.2 % 1.7-9.3 [facility] ([facility] Lymph # 0.9 x10*3/UL 0.6-4.1 [facility] ([facility]) Neut % 71.4 % 37.0-92.0 [facility] Mid # 0.3 x10*3/UL 0.1-0.6 [facility] ([facility]) Neut # 2.9 x10*3/UL 2.0-7.8 [facility] ([facility]) Procedure Social History Code Duration Value Status Description Data Source(s ) Alcohol intake 03/05/2021 12:00:00 AM EDT Current non-d hernandez of alcohol (finding) completed Current non-drinker of alcohol (finding) [facility] Alcohol intake 12/02/2020 12:00:00 AM EDT Current non-d hernandez of alcohol (finding) completed Current non-drinker of alcohol (finding) [facility] Alcohol intake 06/03/2020 12:00:00 AM EST No completed [facility] Smoking 06/03/2020 12:00:00 AM EST Never smoker completed Never s moker [facility] Vital Signs ID Date Data Source [id number] Name Value Range Interpretation Code Description Data Source(s) Diastolic blood pressure 77 mm[Hg] 77 mm[Hg] [facility] ([facility]) Heart rate 69 /min 69 /min [facility] Body weight 85.277 kg 85.277 kg [facility] Body mass index (BMI) [Ratio] 26.2 kg/m2 26.2 k g/m2 [facility] ([facility]) Body temperature 97.3 [degF] 97.3 [degF] [facility] ([facility]) Body height 71 [in_i] 71 [in_i] [facility] 5'11" Body weight 188.00 [lb_av] 188.00 [lb_av] [facility] ([facility]) Systolic blood pressure 141 mm[Hg] 141 mm[Hg] M [facility] ([facility]) Body height 180.3 cm 180.3 cm [facility] Body weight 83.008 kg 83.008 kg [facility] Body mass index (BMI) [Ratio] 25.52 kg/m2 25.52 kg/m2 [facility] Systolic blood pressure 118 mm[Hg] 118 mm[Hg] M [facility] ([facility]) Diastolic blood pressure 60 mm[Hg] 60 mm[Hg] [facility] ([facility]) Heart rate 84 /min 84 /min [facility] ([facility]) Body height 69 [in_i] 69 [in_i] [facility] ([facility]) 5'9" Body weight 190.00 [lb_av] 190.00 [lb_av] [facility] T ([facility]) Oxygen saturation in Arterial blood by Pulse oximetry 96 % 96 % [facility] ([facility]) Body mass index (BMI) [Ratio] 28.1 kg/m2 28.1 k g/m2 [facility] ([facility]) Systolic blood pressure 100 mm[Hg] 100 mm[Hg] [facility] Diastolic blood pressure 60 mm[Hg] 60 mm[Hg] [facility] ([facility]) Heart rate 74 /min 74 /min [facility] ([facility]) Body height 69 [in_i] 69 [in_i] [facility] ([facility]) 5'9" Body weight 193.00 [lb_av] 193.00 [lb_av] [facility] T ([facility]) Oxygen saturation in Arterial blood by Pulse oximetry 98 % 98 % [facility] ([facility]) Body mass index (BMI) [Ratio] 28.5 kg/m2 28.5 k g/m2 [facility] ([facility]) Body mass index (BMI) [Ratio] 28.2 kg/m2 28.2 k g/m2 [facility] ([facility]) Systolic blood pressure 110 mm[Hg] 110 mm[Hg] [facility] ([facility]) Diastolic blood pressure 72 mm[Hg] 72 mm[Hg] [facility] ([facility]) Heart rate 60 /min 60 /min [facility] ([facility]) Body height 69 [in_i] 69 [in_i] [facility] ([facility]) 5'9" Body weight 191.00 [lb_av] 191.00 [lb_av] [facility] ([facility]) Oxygen saturation in Arterial blood by Pulse oximetry 98 % 98 % [facility] ([facility]) Body weight 87.998 kg 87.998 kg [facility] Body mass index (BMI) [Ratio] 27.06 kg/m2 27.06 kg/m2 [facility] Systolic blood pressure 108 mm[Hg] 108 mm[Hg] [facility] ([facility]) Diastolic blood pressure 58 mm[Hg] 58 mm[Hg] [facility] ([facility]) Heart rate 54 /min 54 /min [facility] ([facility]) Body height 69 [in_i] 69 [in_i] [facility] ([facility]) 5'9" Body weight 208.00 [lb_av] 208.00 [lb_av] [facility] ([facility]) Oxygen saturation in Arterial blood by Pulse oximetry 98 % 98 % [facility] ([facility]) Body mass index (BMI) [Ratio] 30.7 kg/m2 30.7 k g/m2 [facility] ([facility]) Oxygen saturation in Arterial blood by Pulse oximetry 99 % 99 % [facility] ([facility], [facility]) Body temperature 98.2 [degF] 98.2 [degF] [facility] ([facility], [facility]) Body weight 205.00 [lb_av] 205.00 [lb_av] [facility] ([facility], [facility]) Body height 71 [in_i] 71 [in_i] [facility] ([facility], [facility]) 5'11" Body mass index (BMI) [Ratio] 28.6 kg/m2 28.6 k g/m2 [facility] ([facility], [facility]) Systolic blood pressure 134 mm[Hg] 134 mm[Hg] [facility] ([facility], [facility]) Heart rate 78 /min 78 /min [facility] ([facility], [facility]) Respiratory rate 20 /min 20 /min [facility] ( [facility], [facility]) Diastolic blood pressure 80 mm[Hg] 80 mm[Hg] [facility] ([facility], [facility]) Body mass index (BMI) [Ratio] 29.3 kg/m2 29.3 k g/m2 [facility] ([facility]) Body weight 95.256 kg 95.256 kg [facility]) Heart rate 79 /min 79 /min [facility] ([facility]) Body temperature 97.2 [degF] 97.2 [degF] [facility] ([facility]) Body weight 210.00 [lb_av] 210.00 [lb_av] [facility] ([facility]) Systolic blood pressure 133 mm[Hg] 133 mm[Hg] [facility] ([facility]) Diastolic blood pressure 82 mm[Hg] 82 mm[Hg] [facility] ([facility]) Body height 71 [in_i] 71 [in_i] [facility] ([facility]) 5'11" Body weight 213.00 [lb_av] 213.00 [lb_av] [facility] ([facility]) Oxygen saturation in Arterial blood by Pulse oximetry 95 % 95 % [facility] ([facility]) [facility] Body mass index (BMI) [Ratio] 31.5 kg/m2 31.5 k g/m2 [facility] ([facility]) Systolic blood pressure 110 mm[Hg] 110 mm[Hg] [facility] ([facility]) Diastolic blood pressure 60 mm[Hg] 60 mm[Hg] [facility] ([facility]) Body height 69 [in_i] 69 [in_i] [facility] ([facility] 5'9" Heart rate 73 /min 73 /min [facility] ([facility]) Body temperature 96.2 [degF] 96.2 [degF] [facility] ([facility] ) Body temperature 96.0 [degF] 96.0 [degF] [facility] ([facility] ) Body height 71 [in_i] 71 [in_i] [facility] ([facility] ) 5'11" Body weight 205.00 [lb_av] 205.00 [lb_av] [facility] ([facility] ) Body mass index (BMI) [Ratio] 28.6 kg/m2 28.6 k g/m2 [facility] ([facility] ) Patient Treatment Plan of Care Planned Activity Planned Date Details Description Data Source (s) Metformin hydrochloride 500 MG Oral Tablet 05/30/2020 12:00:00 AM [facility]
[2021-04-30] MEDS ORDERED: LIDOCAINE 2% 100MG/5ML SDV (FOR ANES.) As Ordered ONE (10:42)
[2021-04-30] MEDS ORDERED: propofoL 200 MG/20 ML VIAL As Ordered ONE (10:42)
--- NOTE | 2021-04-30 11:05 | ROOR ---
Patient Name: Nahun Giordano Procedure Date: 04/30/2021 10:47 AM Date of : 1935 Age: 85 Room: [facility] Gender: Male Note Status: Finalized Procedure: Upper Endoscopy + Biopsies Indications: Epigastric abdominal pain, Weight loss Providers: Vickey Muse MD Referring MD: Connie Joseph NP Requesting Provider: Medicines: Monitored Anesthesia Care Complications: No immediate complications. Procedure: Pre-Anesthesia Assessment: - The heart rate, respiratory rate, oxygen saturations, blood pressure, adequacy of pulmonary ventilation, and response to care were monitored throughout the procedure. The Endoscope was introduced through the mouth, and advanced to the second part of duodenum. The upper GI endoscopy was accomplished without difficulty. The patient tolerated the procedure well. Findings: The Z-line was regular and was found 40 cm from the incisors. No other significant abnormalities were identified in a careful examination of the stomach. Biopsies were taken with a cold forceps in the gastric antrum for Helicobacter pylori testing. The exam of the duodenum was otherwise normal. Impression: - Z-line regular, 40 cm from the incisors. - Biopsies were taken with a cold forceps for Helicobacter pylori testing. - The examination was otherwise normal. Recommendation: - Patient has a contact number available for emergencies. The signs and symptoms of potential delayed complications were discussed with the patient. Return to normal activities tomorrow. Written discharge instructions were provided to the patient. - Resume previous diet. - Discharge patient to home. - Continue present medications. - Await pathology results. - Telephone GI clinic for pathology results in 1 week. - Return to referring physician. - The findings and recommendations were discussed with the patient. Procedure Code(s): --- Professional --- 13143, Esophagogastroduodenoscopy, flexible, transoral; with biopsy, single or multiple Diagnosis Code(s): --- Professional --- R10.13, Epigastric pain R63.4, Abnormal weight loss CPT copyright 2019 [employer]. All rights reserved. The codes documented in this report are preliminary and upon supervisor irrigation review may be revised to meet current compliance requirements. Vickey Muse MD Vickey Muse MD 04/30/2021 11:05:14 AM Electronically signed by Vickey Msue MD Number of Addenda: 0 Note Initiated On: 04/30/2021 10:47 AM Estimated Blood Loss: Estimated blood loss: none.
[2021-04-30 11:30] VITALS: BP 172/69
== END 2021-04-30 11:43 | disposition home or self-care (01) ==
LOC: M OPP 08:53
PROVIDERS: ATTEND Internal Medicine Gastroenterology
DX: R10.13 Epigastric pain (principal); R63.4 Abnormal weight loss; I48.91 Unspecified atrial fibrillation; I25.10 Atherosclerotic heart disease of native coronary artery without angina pectoris; E11.9 Type 2 diabetes mellitus without complications; G47.33 Obstructive sleep apnea (adult) (pediatric); I10 Essential (primary) hypertension; E78.5 Hyperlipidemia, unspecified; Z79.899 Other long term (current) drug therapy

== ENCOUNTER → 2021-11-05 | Outpatient (CLI) | payer MEDICARE ==
[~2021-11-05] MED LIST changes: -D31000TA2 PO; -NS 1,000 ML IV ONE; +VITA100093 PO
== END ==
LOC: M LABSMTC 10:11
PROVIDERS: ATTEND Nurse Practitioner Family
DX: Z20.822 Contact with and (suspected) exposure to COVID-19 (principal); Z11.52 Encounter for screening for COVID-19

== ENCOUNTER → 2022-02-05 | Outpatient (REF) | payer MEDICARE | LOC: M LAB REF 16:06 | PROVIDERS: ATTEND Nurse Practitioner Adult Health | DX: R10.9 Unspecified abdominal pain (principal) ==

== ENCOUNTER → 2022-03-03 | Outpatient (CLI) | payer MEDICARE ==
[~2022-03-03] MED LIST changes: +GASTROGRAFIN SOLUTION 30ML (Q9963) As Ordered ONE; +ISOVUE-370 76% 100ML VIAL As Ordered ONE
== END ==
LOC: M RAD 13:56
PROVIDERS: ATTEND Nurse Practitioner Adult Health
DX: R10.9 Unspecified abdominal pain (principal); N28.1 Cyst of kidney, acquired; M51.35 Other intervertebral disc degeneration, thoracolumbar region
CPT/HCPCS: 74178; Q9963

== ENCOUNTER → 2022-03-11 | Outpatient (CLI) | payer MEDICARE ==
[~2022-03-11] MED LIST changes: -GASTROGRAFIN SOLUTION 30ML (Q9963) As Ordered ONE; -ISOVUE-370 76% 100ML VIAL As Ordered ONE
== END ==
LOC: M WHC 08:26
PROVIDERS: ATTEND Nurse Practitioner Adult Health
DX: R16.0 Hepatomegaly, not elsewhere classified (principal); K76.0 Fatty (change of) liver, not elsewhere classified; R94.5 Abnormal results of liver function studies; Z90.49 Acquired absence of other specified parts of digestive tract

== ENCOUNTER → 2022-04-10 | Outpatient (CLI) | payer MEDICARE ==
[~2022-04-10] MED LIST changes: +ISOVUE-370 76% 100ML VIAL As Ordered ONE
== END ==
LOC: M RAD 10:50
PROVIDERS: ATTEND Nurse Practitioner Adult Health
DX: G45.9 Transient cerebral ischemic attack, unspecified (principal)
CPT/HCPCS: 70470; Q9967

== ENCOUNTER 2022-06-12 12:13 | Inpatient (IN) | payer BC, MEDICARE, OTHER ==
[~2022-06-12] VITALS: Ht 180.3 cm; Wt 91.4 kg
[~2022-06-12 12:13] MED LIST changes: -ISOVUE-370 76% 100ML VIAL As Ordered ONE
[2022-06-12] MEDS ORDERED: ACETAMINOPHEN TAB 650MG DOSE (2X325MG) PO ONE (12:45)
[2022-06-12] MEDS ORDERED: DIGO0.123 PO (12:56)
[2022-06-12] MEDS ORDERED: NITR0.4S14 SL (12:59)
[2022-06-12] MEDS ORDERED: PIPERACILLIN/TAZOBACTAM SOD 4.5 GM in D5W MINI-BAG PLUS 50 ML IV ONE (13:10)
[2022-06-12] MEDS ORDERED: PRESCAP PO (13:19)
[2022-06-12] MEDS ORDERED: VITA200012 PO (13:19)
[2022-06-12] MEDS ORDERED: HOME MED LIST COMPLETE! XX SCH (13:25)
[2022-06-12 13:36] LABS: BASO % 0.2 % (0.0-1.0); HEMATOCRIT 40.7 % (42.0-52.0); HEMOGLOBIN 13.6 g/dl (13.5-17.5); LYMPH # 0.6 10^3/uL (1.5-5.0); MEAN CORPUSCULAR HEMOGLOBIN 31.6 pg (27.0-33.0); MEAN CORPUSCULAR HGB CONC 33.4 g/dl (32.0-36.5); MEAN CORPUSCULAR VOLUME 94.4 fl (80.0-96.0); MONO # 0.8 10^3/uL (0.0-0.8); MONO % 6.7 % (2.0-8.0); NEUTROPHILS # 10.8 10^3/uL (1.5-8.5); NEUTROPHILS % 87.7 % (36.0-66.0); PLATELET COUNT, AUTOMATED 138 10^3/uL (150-450); RED BLOOD COUNT 4.31 10^6/uL (4.30-6.10); WHITE BLOOD COUNT 12.3 10^3/uL (4.0-10.0)
[2022-06-12 13:39] LABS: RSV AMPLIFICATION NEGATIVE (NEGATIVE)
[2022-06-12 13:47] LABS: INR 1.73; PARTIAL THROMBOPLASTIN TIME 41.8 SECONDS (24.8-34.2); PROTHROMBIN TIME 20.6 SECONDS (12.5-14.5)
[2022-06-12 14:01] LABS: DIGOXIN LEVEL 0.4 NG/ML (0.8-2.0)
[2022-06-12 14:02] LABS: ALBUMIN 3.4 G/DL (3.2-5.2); ALKALINE PHOSPHATASE 83 U/L (46-116); ALT/SGPT 27 U/L (7.0-40); AST/SGOT 84 U/L (<34); BILIRUBIN,TOTAL 2.4 MG/DL (0.3-1.2); BLOOD UREA NITROGEN 18 MG/DL (9-23); CALCIUM LEVEL 8.8 MG/DL (8.3-10.6); CARBON DIOXIDE LEVEL 25 MMOL/L (20-31); CHLORIDE LEVEL 98 MMOL/L (98-107); CK-MB VALUE MASS 3.5 NG/ML (<3.6); CREATININE FOR GFR 0.88 MG/DL (0.70-1.30); GLOMERULAR FILTRATION RATE > 60.0 (>35); GLUCOSE, FASTING 150 MG/DL (74-106); SODIUM LEVEL 133 MMOL/L (136-145); TOTAL PROTEIN 6.9 G/DL (5.7-8.2)
[2022-06-12 14:04] LABS: FREE T4 1.07 NG/DL (0.89-1.76); THYROID STIMULATING HORMONE 1.225 uIU/ML (0.55-4.78)
[2022-06-12 14:17] LABS: CPK CREATINE PHOSPHOKINASE 1815 U/L (46-171); MB/CK RELATIVE INDEX 0.19 (< OR =4)
[2022-06-12 15:22] LABS: MB/CK RELATIVE INDEX 0.21 (< OR =4)
[2022-06-12] MEDS ORDERED: SODIUM CHLORIDE HYPERTONIC 3% 15ML NEB SOL INH PRN (16:50)
[2022-06-12] MEDS ORDERED: DEXTROSE 50% 50ML SYRINGE IV PRN (16:55)
[2022-06-12] MEDS ORDERED: GLUCOSE 4GM CHEW TABLET PO PRN (16:55)
[2022-06-12] MEDS ORDERED: GLUCAGON INJ 1MG VIAL SC PRN (16:55)
[2022-06-12] MEDS ORDERED: NS 1,000 ML IV ONE (17:00)
[2022-06-12] MEDS: DOXYCYCLINE HYCLATE 100 MG in D5W MINI-BAG PLUS 100 ML IV SCH (17:28)
[2022-06-12] MEDS: RIVAROXABAN 20MG TAB (XARELTO) PO SCH (17:28)
[2022-06-12] MEDS: METOPROLOL SUCC (TopROL XL) 50MG **XL** TAB PO SCH (17:31)
[2022-06-12] MEDS: INSULIN LISPRO (NovoLOG) PER UNIT SC SCH ×2 (18:52→21:00)
[2022-06-12] MEDS: cefTRIAXone SOD 2 GM in D5W MINI-BAG PLUS 50 ML IV SCH (20:00)
[2022-06-12] MEDS: FAMOTIDINE 20 MG TAB PO SCH (20:22)
[2022-06-12] MEDS: DIGOXIN 0.125 MG TAB PO SCH (20:22)
[2022-06-12] MEDS: ATORVASTATIN 20 MG TAB PO SCH (20:22)
[2022-06-12] MEDS ORDERED: hydrALAZINE 20MG/ML 1ML VIAL IV PRN (21:55)
[2022-06-13] MEDS: DOXYCYCLINE HYCLATE 100 MG in D5W MINI-BAG PLUS 100 ML IV SCH (06:31)
[2022-06-13] MEDS: INSULIN LISPRO (NovoLOG) PER UNIT SC SCH ×4 (07:21→21:00)
[2022-06-13] MEDS: METOPROLOL SUCC (TopROL XL) 50MG **XL** TAB PO SCH (09:02)
[2022-06-13 09:31] LABS: HEMATOCRIT 38.2 % (42.0-52.0); HEMOGLOBIN 12.6 g/dl (13.5-17.5); MEAN CORPUSCULAR HEMOGLOBIN 31.5 pg (27.0-33.0); MEAN CORPUSCULAR VOLUME 95.5 fl (80.0-96.0); PLATELET COUNT, AUTOMATED 121 10^3/uL (150-450); WHITE BLOOD COUNT 8.2 10^3/uL (4.0-10.0)
[2022-06-13 10:35] LABS: ALKALINE PHOSPHATASE 77 U/L (46-116); ALT/SGPT 28 U/L (7.0-40); AST/SGOT 86 U/L (<34); BILIRUBIN,TOTAL 2.3 MG/DL (0.3-1.2); BLOOD UREA NITROGEN 17 MG/DL (9-23); CALCIUM LEVEL 8.2 MG/DL (8.3-10.6); CARBON DIOXIDE LEVEL 23 MMOL/L (20-31); CHLORIDE LEVEL 100 MMOL/L (98-107); CPK CREATINE PHOSPHOKINASE 1154 U/L (46-171); CREATININE FOR GFR 0.78 MG/DL (0.70-1.30); GLOMERULAR FILTRATION RATE > 60.0 (>35); GLUCOSE, FASTING 126 MG/DL (74-106); POTASSIUM SERUM 4.1 MMOL/L (3.5-5.1); SODIUM LEVEL 134 MMOL/L (136-145); TOTAL PROTEIN 6.2 G/DL (5.7-8.2)
[2022-06-13] MEDS ORDERED: METOPROLOL SUCC (TopROL XL) 50MG **XL** TAB PO ONE (15:00)
[2022-06-13 18:00] VITALS: BP 149/83
[2022-06-13] MEDS: RIVAROXABAN 20MG TAB (XARELTO) PO SCH (18:30)
[2022-06-13] MEDS: cefTRIAXone SOD 2 GM in D5W MINI-BAG PLUS 50 ML IV SCH (20:20)
[2022-06-13] MEDS: FAMOTIDINE 20 MG TAB PO SCH (20:21)
[2022-06-13] MEDS: DOXYCYCLINE HYCLATE 100MG TABLET PO SCH (20:21)
[2022-06-13] MEDS: ATORVASTATIN 20 MG TAB PO SCH (20:21)
[2022-06-13 20:22] VITALS: BP 130/71
[2022-06-13] MEDS: DIGOXIN 0.125 MG TAB PO SCH (20:22)
[2022-06-14] VITALS: BP 130/73
[2022-06-14 04:00] VITALS: BP 120/63
[2022-06-14 06:15] LABS: BASO % 0.2 % (0.0-1.0); EOS # 0.1 10^3/uL (0.0-0.5); EOS % 0.9 % (0.0-3.0); HEMOGLOBIN 12.6 g/dl (13.5-17.5); LYMPH # 0.7 10^3/uL (1.5-5.0); LYMPH % 10.4 % (24.0-44.0); MEAN CORPUSCULAR HGB CONC 33.2 g/dl (32.0-36.5); MEAN CORPUSCULAR VOLUME 93.6 fl (80.0-96.0); MONO # 0.7 10^3/uL (0.0-0.8); MONO % 10.3 % (2.0-8.0); NEUTROPHILS # 5.1 10^3/uL (1.5-8.5); NEUTROPHILS % 77.7 % (36.0-66.0); PLATELET COUNT, AUTOMATED 141 10^3/uL (150-450); RED BLOOD COUNT 4.06 10^6/uL (4.30-6.10); WHITE BLOOD COUNT 6.6 10^3/uL (4.0-10.0)
[2022-06-14 06:39] LABS: CPK CREATINE PHOSPHOKINASE 567 U/L (46-171)
[2022-06-14 06:57] LABS: BLOOD UREA NITROGEN 17 MG/DL (9-23); CALCIUM LEVEL 8.7 MG/DL (8.3-10.6); CARBON DIOXIDE LEVEL 24 MMOL/L (20-31); CHLORIDE LEVEL 100 MMOL/L (98-107); CREATININE FOR GFR 0.71 MG/DL (0.70-1.30); GLOMERULAR FILTRATION RATE > 60.0 (>35); GLUCOSE, FASTING 106 MG/DL (74-106); POTASSIUM SERUM 3.9 MMOL/L (3.5-5.1); SODIUM LEVEL 136 MMOL/L (136-145)
[2022-06-14 08:43] VITALS: BP 122/65
[2022-06-14] MEDS: DOXYCYCLINE HYCLATE 100MG TABLET PO SCH ×2 (08:56→20:25)
[2022-06-14] MEDS: INSULIN LISPRO (NovoLOG) PER UNIT SC SCH ×4 (08:57→20:26)
[2022-06-14] MEDS: METOPROLOL SUCC (TopROL XL) 100MG *XL* TAB PO SCH (08:57)
[2022-06-14] MEDS: guaiFENesin ER 600 MG TAB PO SCH ×2 (12:31→20:24)
[2022-06-14 16:00] VITALS: BP 155/83
[2022-06-14] MEDS: RIVAROXABAN 20MG TAB (XARELTO) PO SCH (18:00)
[2022-06-14 20:09] VITALS: BP 145/86
[2022-06-14] MEDS: cefTRIAXone SOD 2 GM in D5W MINI-BAG PLUS 50 ML IV SCH (20:24)
[2022-06-14] MEDS: DIGOXIN 0.125 MG TAB PO SCH (20:25)
[2022-06-14] MEDS: ATORVASTATIN 20 MG TAB PO SCH (20:25)
[2022-06-14] MEDS: FAMOTIDINE 20 MG TAB PO SCH (20:26)
[2022-06-15 00:30] VITALS: BP 138/82
[2022-06-15 04:33] LABS: BASO % 0.4 % (0.0-1.0); EOS # 0.1 10^3/uL (0.0-0.5); EOS % 2.3 % (0.0-3.0); HEMOGLOBIN 12.4 g/dl (13.5-17.5); LYMPH # 0.8 10^3/uL (1.5-5.0); LYMPH % 15.1 % (24.0-44.0); MEAN CORPUSCULAR HEMOGLOBIN 31.6 pg (27.0-33.0); MEAN CORPUSCULAR HGB CONC 33.5 g/dl (32.0-36.5); MEAN CORPUSCULAR VOLUME 94.4 fl (80.0-96.0); MONO # 0.6 10^3/uL (0.0-0.8); MONO % 11.9 % (2.0-8.0); NEUTROPHILS # 3.6 10^3/uL (1.5-8.5); NEUTROPHILS % 69.7 % (36.0-66.0); PLATELET COUNT, AUTOMATED 153 10^3/uL (150-450); RED BLOOD COUNT 3.92 10^6/uL (4.30-6.10); WHITE BLOOD COUNT 5.1 10^3/uL (4.0-10.0)
[2022-06-15 05:03] LABS: BLOOD UREA NITROGEN 22 MG/DL (9-23); CALCIUM LEVEL 8.6 MG/DL (8.3-10.6); CARBON DIOXIDE LEVEL 24 MMOL/L (20-31); CHLORIDE LEVEL 101 MMOL/L (98-107); CREATININE FOR GFR 0.77 MG/DL (0.70-1.30); GLOMERULAR FILTRATION RATE > 60.0 (>35); GLUCOSE, FASTING 103 MG/DL (74-106); POTASSIUM SERUM 3.8 MMOL/L (3.5-5.1); SODIUM LEVEL 137 MMOL/L (136-145)
[2022-06-15] MEDS: INSULIN LISPRO (NovoLOG) PER UNIT SC SCH ×2 (07:16→11:47)
[2022-06-15 08:00] VITALS: BP 141/91
[2022-06-15] MEDS: guaiFENesin ER 600 MG TAB PO SCH (08:53)
[2022-06-15] MEDS: DOXYCYCLINE HYCLATE 100MG TABLET PO SCH (08:53)
[2022-06-15 08:54] VITALS: BP 141/91
[2022-06-15] MEDS: METOPROLOL SUCC (TopROL XL) 100MG *XL* TAB PO SCH (08:54)
[2022-06-15] MEDS ORDERED: MUCI600T31 PO (10:41)
[2022-06-15] MEDS ORDERED: METO1TAB33 PO (10:41)
[2022-06-15] MEDS ORDERED: AMLO1TAB25 PO (10:41)
[2022-06-15] MEDS ORDERED: AMOX875T2 PO (10:41)
[2022-06-15] MEDS ORDERED: DOXY100T PO (10:41)
[2022-06-17 17:07] LABS: BODY FLUID CULTURE Not indicated. (.); LEGIONELLA ANTIGEN URINE Negative (Negative); ORGANISM ID Not indicated. (.); SPECIMEN SOURCE Urine (.); URINE STREP PNEUMONIAE ANTIGEN Negative (Negative)
== END 2022-06-15 13:24 | disposition home or self-care (01) | DRG 871 ==
LOC: EDBD 12:13 → M ED 12:13 → EDSEX 12:13 → M ED INP 16:43 → ENRESERV 06-13 15:55 → M PCU 06-13 18:00
PROVIDERS: ADMIT Internal Medicine; ATTEND Internal Medicine
PROC: B246ZZZ Ultrasonography of Right and Left Heart (ICD-10-PCS; principal; 2022-06-13)
DX: A41.9 Sepsis, unspecified organism (principal); J18.9 Pneumonia, unspecified organism; J96.01 Acute respiratory failure with hypoxia; M62.82 Rhabdomyolysis; R53.1 Weakness; E86.0 Dehydration; I25.10 Atherosclerotic heart disease of native coronary artery without angina pectoris; I48.91 Unspecified atrial fibrillation; E11.9 Type 2 diabetes mellitus without complications; D47.2 Monoclonal gammopathy; E78.5 Hyperlipidemia, unspecified; I44.7 Left bundle-branch block, unspecified; K21.9 Gastro-esophageal reflux disease without esophagitis; G47.30 Sleep apnea, unspecified; Z95.1 Presence of aortocoronary bypass graft; Z90.49 Acquired absence of other specified parts of digestive tract; Z79.84 Long term (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 oral hypoglycemic drugs; Z79.01 Long term (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 anticoagulants; Z79.899 Other long term (current) drug therapy; Z95.3 Presence of xenogenic heart valve

== ENCOUNTER → 2022-09-28 | Outpatient (REF) | payer MEDICARE ==
[~2022-09-28] MED LIST changes: +AMLO1TAB25 PO; +AMOX875T2 PO; +CEFP200T PO; +DIGO0.123 PO; +DOXY100T PO; +METO1TAB33 PO; +MUCI600T31 PO; +NITR0.4S14 SL; +VITA200012 PO
[2022-09-28 19:16] LABS: LIPASE 73 U/L (12-53)
[2022-09-28 19:18] LABS: AMYLASE 80 U/L (30-118)
== END ==
LOC: M LAB REF 16:29
PROVIDERS: ATTEND Nurse Practitioner Adult Health
DX: R10.9 Unspecified abdominal pain (principal); R42 Dizziness and giddiness

== ENCOUNTER → 2022-10-15 | Outpatient (CLI) | payer MEDICARE ==
[~2022-10-15] MED LIST changes: +GASTROGRAFIN SOLUTION 30ML As Ordered ONE; +ISOVUE-370 76% 100ML VIAL As Ordered ONE
== END ==
LOC: M RAD 12:36
PROVIDERS: ATTEND Nurse Practitioner Adult Health
DX: R10.9 Unspecified abdominal pain (principal); K57.30 Diverticulosis of large intestine without perforation or abscess without bleeding; K66.8 Other specified disorders of peritoneum; Z90.49 Acquired absence of other specified parts of digestive tract; K76.89 Other specified diseases of liver; N28.1 Cyst of kidney, acquired; I70.90 Unspecified atherosclerosis
CPT/HCPCS: 74178; Q9963; Q9967

== ENCOUNTER → 2023-03-09 | Outpatient (CLI) | payer MEDICARE ==
[~2023-03-09] MED LIST changes: -GASTROGRAFIN SOLUTION 30ML As Ordered ONE; -ISOVUE-370 76% 100ML VIAL As Ordered ONE; +METO1TAB7
== END ==
LOC: M WUC 14:32
PROVIDERS: ATTEND Nurse Practitioner Adult Health
DX: R06.02 Shortness of breath (principal); I48.21 Permanent atrial fibrillation; R91.8 Other nonspecific abnormal finding of lung field; I70.0 Atherosclerosis of aorta

== ENCOUNTER 2023-10-02 08:29 | Observation (INO) | payer MEDICARE ==
[2023-10-02] VITALS (7 sets, daily range): BP systolic 142–180; BP diastolic 52–80; TEMP 97.3–98.1; O2SAT 94–98
[~2023-10-02] VITALS: Ht 180.3 cm; Wt 95.1 kg
[~2023-10-02 08:29] MED LIST changes: -METO1TAB7
[2023-10-02] MEDS ORDERED: ARTH650T23 PO (08:39)
[2023-10-02] MEDS ORDERED: ISOVUE-370 76% 100ML VIAL As Ordered ONE (09:08)
[2023-10-02 09:36] LABS: BASO % 0.3 % (0.0-1.0); EOS # 0.1 10^3/uL (0.0-0.5); EOS % 1.2 % (0.0-3.0); HEMATOCRIT 42.7 % (42.0-52.0); HEMOGLOBIN 14.7 g/dl (13.5-17.5); MEAN CORPUSCULAR HEMOGLOBIN 32.7 pg (27.0-33.0); MEAN CORPUSCULAR HGB CONC 34.4 g/dl (32.0-36.5); MEAN CORPUSCULAR VOLUME 95.1 fl (80.0-96.0); MONO # 0.7 10^3/uL (0.0-0.8); MONO % 9.8 % (2.0-8.0); NEUTROPHILS # 5.5 10^3/uL (1.5-8.5); NEUTROPHILS % 74.2 % (36.0-66.0); PLATELET COUNT, AUTOMATED 137 10^3/uL (150-450); RED BLOOD COUNT 4.49 10^6/uL (4.30-6.10); WHITE BLOOD COUNT 7.4 10^3/uL (4.0-10.0)
[2023-10-02 09:46] LABS: INR 2.8; PARTIAL THROMBOPLASTIN TIME 55.8 SECONDS (24.8-34.2); PROTHROMBIN TIME 28.5 SECONDS (12.5-14.5)
[2023-10-02 09:59] LABS: CK-MB VALUE MASS 2.9 NG/ML (<3.6)
[2023-10-02 10:01] LABS: FREE T4 1.14 NG/DL (0.89-1.76); THYROID STIMULATING HORMONE 3.456 uIU/ML (0.55-4.78)
[2023-10-02 10:06] LABS: CPK CREATINE PHOSPHOKINASE 81 U/L (46-171); MB/CK RELATIVE INDEX 3.58 (< OR =4)
[2023-10-02 10:07] LABS: BLOOD UREA NITROGEN 14 MG/DL (9-23); CALCIUM LEVEL 9.3 MG/DL (8.3-10.6); CARBON DIOXIDE LEVEL 25 MMOL/L (20-31); CHLORIDE LEVEL 105 MMOL/L (98-107); CREATININE FOR GFR 0.83 MG/DL (0.70-1.30); GLOMERULAR FILTRATION RATE > 60.0 (>35); GLUCOSE, FASTING 130 MG/DL (74-106); POTASSIUM SERUM 4.5 MMOL/L (3.5-5.1); SODIUM LEVEL 138 MMOL/L (136-145)
[2023-10-02] MEDS: MORPHINE 2 MG/ML 1ML VIAL IV ONE (10:30)
[2023-10-02 10:31] LABS: DIGOXIN LEVEL 0.5 NG/ML (0.8-2.0)
[2023-10-02] MEDS ORDERED: THERTAB52 PO (11:49)
[2023-10-02] MEDS ORDERED: HOME MED LIST COMPLETE! XX SCH (11:55)
[2023-10-02] MEDS ORDERED: ACETAMINOPHEN 500 MG TAB PO SCH (12:00)
[2023-10-02] MEDS: KETOROLAC 30 MG/ML 1ML VIAL IV SCH (13:51)
[2023-10-02] MEDS: methocarbamoL 750 MG TAB PO ONE (13:51)
[2023-10-02] MEDS: LIDOCAINE 5% (LIDODERM) PATCH TD ONE (13:51)
[2023-10-02] MEDS: ACETAMINOPHEN 500 MG TAB PO SCH (17:09)
[2023-10-02] MEDS: DIGOXIN 0.125 MG TAB PO SCH (21:21)
[2023-10-02] MEDS: tiZANidine 4 MG TAB PO SCH (21:22)
[2023-10-02] MEDS: FAMOTIDINE 20 MG TAB PO SCH (21:22)
[2023-10-02] MEDS: ATORVASTATIN 20 MG TAB PO SCH (21:22)
[2023-10-03 05:13] VITALS: BP 129/73; TEMP 97.9; O2SAT 96
[2023-10-03 08:25] VITALS: BP 126/70
[2023-10-03] MEDS: RIVAROXABAN 20MG TAB (XARELTO) PO SCH (08:25)
[2023-10-03] MEDS: METOPROLOL SUCC *XL* 25MG TAB (TopROL *XL*) PO SCH (08:25)
[2023-10-03 09:02] LABS: BASO % 0.7 % (0.0-1.0); EOS # 0.1 10^3/uL (0.0-0.5); EOS % 2.5 % (0.0-3.0); HEMATOCRIT 42.5 % (42.0-52.0); HEMOGLOBIN 14.2 g/dl (13.5-17.5); LYMPH # 1.1 10^3/uL (1.5-5.0); LYMPH % 23.6 % (24.0-44.0); MEAN CORPUSCULAR HEMOGLOBIN 31.9 pg (27.0-33.0); MEAN CORPUSCULAR HGB CONC 33.4 g/dl (32.0-36.5); MEAN CORPUSCULAR VOLUME 95.5 fl (80.0-96.0); MONO # 0.4 10^3/uL (0.0-0.8); MONO % 9.7 % (2.0-8.0); NEUTROPHILS # 2.8 10^3/uL (1.5-8.5); PLATELET COUNT, AUTOMATED 147 10^3/uL (150-450); RED BLOOD COUNT 4.45 10^6/uL (4.30-6.10); WHITE BLOOD COUNT 4.4 10^3/uL (4.0-10.0)
[2023-10-03] MEDS ORDERED: TIZA10TA PO (09:12)
[2023-10-03] MEDS ORDERED: METH-1165 PO (09:13)
[2023-10-03 09:19] LABS: BLOOD UREA NITROGEN 18 MG/DL (9-23); CALCIUM LEVEL 9.3 MG/DL (8.3-10.6); CARBON DIOXIDE LEVEL 28 MMOL/L (20-31); CHLORIDE LEVEL 104 MMOL/L (98-107); CREATININE FOR GFR 0.95 MG/DL (0.70-1.30); GLOMERULAR FILTRATION RATE > 60.0 (>35); GLUCOSE, FASTING 123 MG/DL (74-106); POTASSIUM SERUM 4.2 MMOL/L (3.5-5.1); SODIUM LEVEL 139 MMOL/L (136-145)
== END 2023-10-03 12:38 | disposition home or self-care (01) ==
LOC: M ED 08:29 → M ED INP 12:44 → M MSPAV 16:28
PROVIDERS: ADMIT Internal Medicine Nephrology; ATTEND Internal Medicine Nephrology
DX: M54.2 Cervicalgia (principal); R26.0 Ataxic gait; Z99.89 Dependence on other enabling machines and devices; R47.02 Dysphasia; R29.703 NIHSS score 3; I35.0 Nonrheumatic aortic (valve) stenosis; Z95.2 Presence of prosthetic heart valve; I48.0 Paroxysmal atrial fibrillation; K76.0 Fatty (change of) liver, not elsewhere classified; R55 Syncope and collapse; H81.09 Meniere's disease, unspecified ear; H35.30 Unspecified macular degeneration; E78.5 Hyperlipidemia, unspecified; E11.9 Type 2 diabetes mellitus without complications; M19.90 Unspecified osteoarthritis, unspecified site; I25.10 Atherosclerotic heart disease of native coronary artery without angina pectoris; Z95.5 Presence of coronary angioplasty implant and graft; Z95.1 Presence of aortocoronary bypass graft; I10 Essential (primary) hypertension; I67.82 Cerebral ischemia; G47.33 Obstructive sleep apnea (adult) (pediatric); D47.2 Monoclonal gammopathy; Z79.899 Other long term (current) drug therapy; Z79.84 Long term (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 oral hypoglycemic drugs; Z79.01 Long term (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 anticoagulants; Z80.9 Family history of malignant neoplasm, unspecified
CPT/HCPCS: 36415; 70450; 70496; 70498; 71045; 80047; 80048; 80162; 82550; 82553; 84439; 84443; 84484; 85025; 85610; 85730; 93005; 93041; 94760; 96374; 96376; 97161; 97530; 99285; G0378; J1885; Q9967

== ENCOUNTER → 2023-10-19 | Outpatient (REF) | payer MEDICARE ==
[~2023-10-19] MED LIST changes: +ARTH650T23 PO; +METH-1165 PO; +THERTAB52 PO; +TIZA10TA PO
[2023-10-22 04:07] LABS: LDL DIRECT 36 mg/dL (0-99)
== END ==
LOC: M LAB REF 16:27
PROVIDERS: ATTEND Nurse Practitioner Adult Health
DX: E78.00 Pure hypercholesterolemia, unspecified (principal)

== ENCOUNTER 2024-02-12 09:30 | Emergency (ER) | payer MEDICARE ==
[~2024-02-12] VITALS: Ht 180.3 cm; Wt 89.1 kg
[~2024-02-12 09:30] MED LIST changes: +DONE5TAB82
[2024-02-12 10:58] LABS: HEMATOCRIT 39.8 % (42.0-52.0); HEMOGLOBIN 13.9 g/dl (13.5-17.5); MEAN CORPUSCULAR HEMOGLOBIN 33.1 pg (27.0-33.0); MEAN CORPUSCULAR HGB CONC 34.9 g/dl (32.0-36.5); MEAN CORPUSCULAR VOLUME 94.8 fl (80.0-96.0); PLATELET COUNT, AUTOMATED 120 10^3/uL (150-450); WHITE BLOOD COUNT 7.5 10^3/uL (4.0-10.0)
[2024-02-12 11:10] LABS: INR 1.27; PROTHROMBIN TIME 15.5 SECONDS (12.5-14.5)
[2024-02-12 11:25] LABS: ALBUMIN 3.7 G/DL (3.2-5.2); ALKALINE PHOSPHATASE 81 U/L (46-116); ALT/SGPT 34 U/L (7.0-40); AST/SGOT 42 U/L (<34); BILIRUBIN,TOTAL 1.3 MG/DL (0.3-1.2); BLOOD UREA NITROGEN 9 MG/DL (9-23); CALCIUM LEVEL 9.5 MG/DL (8.3-10.6); CARBON DIOXIDE LEVEL 27 MMOL/L (20-31); CHLORIDE LEVEL 105 MMOL/L (98-107); CREATININE FOR GFR 0.79 MG/DL (0.70-1.30); GLOMERULAR FILTRATION RATE > 60.0 (>35); GLUCOSE, FASTING 123 MG/DL (74-106); POTASSIUM SERUM 4.2 MMOL/L (3.5-5.1); SODIUM LEVEL 136 MMOL/L (136-145); TOTAL PROTEIN 6.7 G/DL (5.7-8.2)
[2024-02-12 15:45] VITALS: TEMP 97.2
[2024-02-12 16:15] VITALS: O2SAT 97
[2024-02-12 16:18] VITALS: BP 134/78
== END 2024-02-12 16:18 | disposition short-term general hospital (02) ==
LOC: M ED 09:30
DX: S02.32XA Fracture of orbital floor, left side, initial encounter for closed fracture (principal); H11.32 Conjunctival hemorrhage, left eye; W01.198A Fall on same level from slipping, tripping and stumbling with subsequent striking against other object, initial encounter; M50.321 Other cervical disc degeneration at C4-C5 level; M50.322 Other cervical disc degeneration at C5-C6 level; M50.323 Other cervical disc degeneration at C6-C7 level; I48.91 Unspecified atrial fibrillation; I44.7 Left bundle-branch block, unspecified; E11.9 Type 2 diabetes mellitus without complications; Z86.79 Personal history of other diseases of the circulatory system; Y92.009 Unspecified place in unspecified non-institutional (private) residence as the place of occurrence of the external cause; Y93.89 Activity, other specified; Y99.9 Unspecified external cause status; Z79.02 Long term (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 antithrombotics/antiplatelets; Z79.899 Other long term (current) drug therapy; Z79.1 Long term (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 non-steroidal anti-inflammatories (NSAID)

== ENCOUNTER → 2024-05-10 | Outpatient (REF) | payer MEDICARE | LOC: M LAB REF 17:29 | PROVIDERS: ATTEND Nurse Practitioner Adult Health | DX: I48.21 Permanent atrial fibrillation (principal) ==